=== PATIENT | female | born 1935 | race Caucasian/White ===

== ENCOUNTER 2017-07-26 16:20 | Inpatient (IN) | payer MEDICARE, MEDICAID ==
[~2017-07-26] VITALS: Ht 162.6 cm; Wt 68.0 kg
--- NOTE | 2017-07-26 16:22 | Emergency Room Report ---
History of Present Illness General Chief Complaint: Abdominal Pain Source: Patient Present Illness HPI [id number] BIBEMS for bright red blood, 50cc, from rectum at 4pm. Had constipation last 4 days then diarrhea this morning followed by bright red blood per rectum ( BRBPR) this afternoon. Assoc with lower midline abd pain and nausea Denies urinary complaints. No hemorrhoids. Not on ASA, AC. Finished Abx Cipro for UTI yesterday/today No prior colitis/diverticulitis history No coffee ground emesis. No melena. No heavy NSAID use Prolonged QTc on EMS rhythm strip Episode of "bradycardia" on scene Normotensive Allergies: Coded Allergies: Horse Serum Proteins (Verified Allergy, Unknown, SWELLING, 04/23/08) Patient History Past Medical History: HTN Past Surgical History: none Pertinent Family History: none Social History: Denies: smoking, alcohol use, drug use Now: No Immunizations: UTD Reviewed Nursing Documentation: PMH: Agreed, PSxH: Agreed Nursing Documentation-PMH Hx Hypertension: Yes Hx Diabetes: Yes Review of Systems All Other Systems: negative except mentioned in HPI Physical Exam Vital Signs Date Time Temp Pulse Resp B/P (MAP) Pulse Ox O2 Delivery O2 Flow Rate FiO2 07/26/17 16:11 96.3 55 16 145/72 99 Room Air Sp02 EP Interpretation: reviewed, normal General Appearance: normal inspection, well appearing, no apparent distress, alert, GCS 15, non-toxic, obese, other - Moving slowly, eyes closed Head: normocephalic, atraumatic Eyes: bilateral eye PERRL, bilateral eye EOMI ENT: normal ENT inspection Neck: normal inspection, full range of motion, supple, no bony tend Respiratory: normal inspection, lungs clear, normal breath sounds, no respiratory distress, no retraction, no wheezing Cardiovascular #1: regular rate, rhythm, no edema Gastrointestinal: normal inspection, soft, no mass, other - Mild ttp midline lower abd. No rebound, guarding. No peritonitis Rectal: normal exam, normal rectal tone, blood streaked stool, other - Brown stool with some red streaks on rectum Genitourinary: no CVA tenderness Musculoskeletal: normal inspection, back normal, normal range of motion, Azam' s Sign negative Neurologic: normal inspection, alert, oriented x3, responsive, mold clamper III-XII nml as tested, speech normal Psychiatric: normal inspection, judgement/insight normal, mood/affect normal Skin: normal inspection, normal color, no rash Medical Decision Making Diagnostic Impression: Primary Impression: Bright red blood per rectum Additional Impressions: Abdominal pain Qualified Codes: R10.30 - Lower abdominal pain, unspecified Colitis ER Course H&H stable. Leuks 21K No metabolic abnormalities - mild hyperglycemia CTAP: Colitis Empiric zosyn given with flagyl. Blood Cx pending Endorsed to Dr Decker for admission at 530pm Dr Montano consulted for GI EKG Diagnostic Results Rate: normal Rhythm: NSR ST Segments: no acute changes Rhythm Strip Diag. Results EP Interpretation: yes Rate: 55 Rhythm: NSR, no PVC's, no ectopy Last Vital Signs Date Time Temp Pulse Resp B/P (MAP) Pulse Ox O2 Delivery O2 Flow Rate FiO2 07/26/17 16:11 96.3 55 16 145/72 99 Room Air Status: improved Disposition: ADMITTED INPATIENT Condition: Serious KINJAL ISBELL M.D. Jul 26, 2017 16:22
[2017-07-26] MEDS ORDERED: ASPIR 8181 MG ORAL (16:30)
[2017-07-26] MEDS ORDERED: METFORMIN HCL500 M1 ORAL (16:30)
[2017-07-26] MEDS ORDERED: LEVOTHYROXINE50 MCG ORAL (16:30)
[2017-07-26] MEDS ORDERED: NIFEDIPINE ER60 M3 ORAL (16:30)
[2017-07-26] MEDS ORDERED: CARVEDILOL25 MG ORAL (16:30)
[2017-07-26] MEDS ORDERED: ATORVASTATIN CA20 MG ORAL (16:30)
[2017-07-26 16:54] VITALS: BP 160/56
[2017-07-26] MEDS ORDERED: Morphine Sulfate 4mg/ml Inj IVP ONE (17:00)
[2017-07-26 17:10] LABS: MEAN CORPUSCULAR HGB CONC 33.9 G/DL (32.0-36.0); MEAN CORPUSCULAR VOLUME 94 FL (80-99); MEAN PLATELET VOLUME 7.8 FL (6.5-10.1); PLATELET COUNT 268 K/UL (150-450); RED BLOOD COUNT 5.16 M/UL (4.20-5.40); RED CELL DISTRIBUTION WIDTH 12.4 % (11.6-14.8); WHITE BLOOD COUNT 21.7 K/UL (4.8-10.8)
[2017-07-26 17:16] LABS: PROTHROMBIN TIME 10.1 SEC (9.30-11.50)
[2017-07-26 17:25] LABS: TROPONIN I < 0.30 ng/mL (<=0.30)
[2017-07-26] MEDS ORDERED: Piperacillin/Tazobactam 3.375 GM in NS 110 ML IVPB ONE (17:30)
[2017-07-26 17:45] LABS: ALANINE AMINOTRANSFERASE 19 U/L (3-33); ALBUMIN/GLOBULIN RATIO 1.5 (1.0-2.7); ANION GAP 19 (5-15); ASPARTATE AMINO TRANSFERASE 22 U/L (5-40); CALCIUM 10.1 mg/dL (8.6-10.2); CARBON DIOXIDE 23 mEQ/L (20-30); CHLORIDE 95 mEQ/L (98-107); CREATININE 0.8 mg/dL (0.5-0.9); HEMOLYSIS 10; LIPASE 29 U/L (< 60); POTASSIUM 4.1 mEQ/L (3.4-4.9); SODIUM 137 mEQ/L (135-145); TOTAL PROTEIN 7.7 g/dL (6.6-8.7)
[2017-07-26] MEDS ORDERED: Miralax 17gm pkt ORAL PRN (17:45)
[2017-07-26] MEDS ORDERED: Mylanta II UD 30ml ORAL PRN (17:45)
[2017-07-26] MEDS ORDERED: Nitroglycerin Subl 0.4mg tab SL PRN (17:45)
[2017-07-26] MEDS ORDERED: Zosyn 3.375gm inj ONE (17:46)
--- NOTE | 2017-07-26 17:52 | Infectious Diseases Prog Note ---
Assessment/Plan Problems: (1) Sepsis Assessment & Plan: will send blood culture and start vancomycin and cefepime empirically (2) Bright red blood per rectum Assessment & Plan: monitor H/H, transfuse blood as needed , consult GI for endoscopy (3) Abdominal pain Assessment & Plan: due to the above, continue Pain management Subjective Allergies: Coded Allergies: Horse Serum Proteins (Verified Allergy, Unknown, SWELLING, 04/23/08) Objective Vital Signs Last 24 Hour Vital Signs Date Time Temp Pulse Resp B/P (MAP) Pulse Ox O2 Delivery O2 Flow Rate FiO2 07/26/17 16:54 97.9 55 16 160/56 100 Room Air 07/26/17 16:11 96.3 55 16 145/72 99 Room Air Height (Feet): 5 Height (Inches): 4.00 Weight (Pounds): 150 Laboratory Tests Test 07/26/17 16:40 White Blood Count 21.7 K/UL (4.8-10.8) H Red Blood Count 5.16 M/UL (4.20-5.40) Hemoglobin 16.5 G/DL (12.0-16.0) H Hematocrit 48.7 % (37.0-47.0) H Mean Corpuscular Volume 94 FL (80-99) Mean Corpuscular Hemoglobin 32.0 PG (27.0-31.0) H Mean Corpuscular Hemoglobin Concent 33.9 G/DL (32.0-36.0) Red Cell Distribution Width 12.4 % (11.6-14.8) Platelet Count 268 K/UL (150-450) Mean Platelet Volume 7.8 FL (6.5-10.1) Neutrophils (%) (Auto) % (45.0-75.0) Lymphocytes (%) (Auto) % (20.0-45.0) Monocytes (%) (Auto) % (1.0-10.0) Eosinophils (%) (Auto) % (0.0-3.0) Basophils (%) (Auto) % (0.0-2.0) Neutrophils % (Manual) Pending Lymphocytes % (Manual) Pending Platelet Estimate Pending Platelet Morphology Pending Prothrombin Time 10.1 SEC (9.30-11.50) Prothromb Time International Ratio 1.0 (0.9-1.1) Activated Partial Thromboplast Time 26 SEC (23-33) Sodium Level 137 mEQ/L (135-145) Potassium Level 4.1 mEQ/L (3.4-4.9) Chloride Level 95 mEQ/L (98-107) L Carbon Dioxide Level 23 mEQ/L (20-30) Anion Gap 19 (5-15) H Blood Urea Nitrogen 15 mg/dL (7-23) Creatinine 0.8 mg/dL (0.5-0.9) Estimat Glomerular Filtration Rate mL/min (>60) Glucose Level 146 mg/dL (74-106) H Calcium Level 10.1 mg/dL (8.6-10.2) Total Bilirubin 0.5 mg/dL (0.0-1.2) Aspartate Amino Transf (AST/SGOT) 22 U/L (5-40) Alanine Aminotransferase (ALT/SGPT) 19 U/L (3-33) Alkaline Phosphatase 62 U/L (35-104) Troponin I < 0.30 ng/mL (<=0.30) Total Protein 7.7 g/dL (6.6-8.7) Albumin 4.7 g/dL (3.5-5.2) Globulin 3.0 g/dL Albumin/Globulin Ratio 1.5 (1.0-2.7) Lipase 29 U/L (< 60) Current Medications Medications (Trade) Dose Ordered Sig/Akbar Route PRN Reason Start Time Stop Time Status Last Admin Dose Admin Acetaminophen (Tylenol) 650 mg Q4H PRN ORAL fever 07/26/17 17:45 08/25/17 17:44 Al Hydroxide/Mg Hydroxide (Mylanta II) 30 ml Q6H PRN ORAL dyspepsia 07/26/17 17:45 08/25/17 17:44 Atorvastatin Calcium (Lipitor) 20 mg BEDTIME ORAL 07/26/17 21:00 08/25/17 20:59 UNV Carvedilol (Coreg) 25 mg EVERY 12 HOURS ORAL 07/26/17 21:00 08/25/17 20:59 UNV Clonidine HCl (Catapres) 0.1 mg Q4H PRN ORAL For High Blood Pressure 07/26/17 17:45 08/25/17 17:44 Dextrose (Dextrose 50%) STAT PRN IV Hypoglycemia 07/26/17 17:45 08/25/17 17:44 Dextrose/Sodium Chloride 1,000 ml @ 75 mls/hr [id number] IV 07/26/17 18:00 08/25/17 17:59 Diphenhydramine HCl (Benadryl) 25 mg Q6H PRN ORAL Itching/Pruritis 07/26/17 17:45 08/25/17 17:44 Insulin Aspart (NovoLOG) BEFORE MEALS AND HS SUBQ 07/26/17 21:00 08/25/17 20:59 UNV Levothyroxine Sodium (Synthroid) 50 mcg ACBREAKFAST ORAL 07/27/17 06:30 08/26/17 06:29 Morphine Sulfate (Morphine Sulfate) 2 mg Q4H PRN IVP severe Pain (Pain Scale 7-10) 07/26/17 17:45 08/02/17 17:44 Nifedipine (Procardia XL) 60 mg DAILY ORAL 07/27/17 09:00 08/26/17 08:59 UNV Nitroglycerin (Ntg) 0.4 mg Q5M X 3 DOSES PRN SL Prn Chest Pain 07/26/17 17:45 08/25/17 17:44 Ondansetron HCl (Zofran) 4 mg Q6H PRN IVP Nausea & Vomiting 07/26/17 17:45 08/25/17 17:44 Piperacillin Sod/ Tazobactam Sod 3.375 gm/Sodium Chloride 110 ml @ 220 mls/hr ONCE ONCE IVPB 07/26/17 17:30 07/26/17 17:59 07/26/17 17:47 Polyethylene Glycol (Miralax) 17 gm HSPRN PRN ORAL Constipation 07/26/17 17:45 08/25/17 17:44 Temazepam (Restoril) 15 mg HSPRN PRN ORAL Insomnia 07/26/17 17:45 08/02/17 17:44 Boone Carlin M.D. Jul 26, 2017 17:52
[2017-07-26 18:13] LABS: BAND NEUTROPHILS % (MANUAL) 1 % (0-8); LYMPHOCYTES % (MANUAL) 7 % (20-45); NEUTROPHILS % (MANUAL) 90 % (45-75); TOTAL CELLS COUNTED 100
[2017-07-26 18:14] LABS: ANISOCYTOSIS 1+; BASOPHILS % (MANUAL) 0 % (0-2); EOSINOPHILS % (MANUAL) 0 % (0-3); PLATELET ESTIMATE ADEQUATE; PLATELET MORPHOLOGY NORMAL
[2017-07-26 18:30] VITALS: BP 134/52
[2017-07-26] MEDS ORDERED: HYDROmorphone 1mg/ml Carpuject IVP PRN (18:45)
[2017-07-26] MEDS ORDERED: Fleet's Enema 133ml RECTAL ONE (19:00)
[2017-07-26 19:07] LABS: MEAN CORPUSCULAR HEMOGLOBIN 32.6 PG (27.0-31.0); MEAN CORPUSCULAR HGB CONC 34.6 G/DL (32.0-36.0); MEAN CORPUSCULAR VOLUME 94 FL (80-99); MEAN PLATELET VOLUME 7.3 FL (6.5-10.1); PLATELET COUNT 266 K/UL (150-450); RED BLOOD COUNT 5.38 M/UL (4.20-5.40); RED CELL DISTRIBUTION WIDTH 12.3 % (11.6-14.8)
[2017-07-26 19:09] VITALS: BP 154/33
[2017-07-26 19:10] LABS: WHITE BLOOD COUNT 23.1 K/UL (4.8-10.8)
[2017-07-26 20:00] VITALS: BP 144/55
[2017-07-26 20:21] LABS: ANISOCYTOSIS 1+; BAND NEUTROPHILS % (MANUAL) 0 % (0-8); BASOPHILS % (MANUAL) 0 % (0-2); EOSINOPHILS % (MANUAL) 0 % (0-3); LYMPHOCYTES % (MANUAL) 5 % (20-45); NEUTROPHILS % (MANUAL) 92 % (45-75); PLATELET ESTIMATE ADEQUATE; PLATELET MORPHOLOGY NORMAL; TOTAL CELLS COUNTED 100
[2017-07-26] MEDS: D5 1/2NS 1,000 ML IV SCH (21:00)
[2017-07-26] MEDS: Morphine Sulfate 2mg/ml Inj IVP PRN (21:44)
[2017-07-26] MEDS: Cefepime HCl 2 GM in D5W 110 ML IVPB SCH (21:45)
[2017-07-26] MEDS: NovoLOG Insulin Flexpen SUBQ SCH (21:45)
[2017-07-26] MEDS: Carvedilol 25mg Tab ORAL SCH (21:45)
[2017-07-26] MEDS ORDERED: Vancomycin 1.5 GM/D5W 250ML IVPB ONE (22:00)
[2017-07-26 23:36] LABS: APPEARANCE,URINE CLEAR; KETONES,URINE 2+ (NEGATIVE); LEUKOCYTE ESTERASE ,URINE NEGATIVE (NEGATIVE); NITRITE,URINE NEGATIVE (NEGATIVE); PH,URINE 6 (4.5-8.0); PROTEIN,URINE NEGATIVE (NEGATIVE); UROBILINOGEN,URINE NORMAL MG/DL (0.0-1.0)
[2017-07-27] VITALS: BP 148/58
[2017-07-27 03:08] VITALS: BP 155/61
[2017-07-27 04:54] LABS: MEAN CORPUSCULAR HEMOGLOBIN 30.4 PG (27.0-31.0); MEAN CORPUSCULAR HGB CONC 32.7 G/DL (32.0-36.0); MEAN CORPUSCULAR VOLUME 93 FL (80-99); MEAN PLATELET VOLUME 7.4 FL (6.5-10.1); PLATELET COUNT 267 K/UL (150-450); RED BLOOD COUNT 5.17 M/UL (4.20-5.40); RED CELL DISTRIBUTION WIDTH 12.2 % (11.6-14.8)
[2017-07-27 05:02] LABS: PROTHROMBIN TIME 10.6 SEC (9.30-11.50)
[2017-07-27 05:16] LABS: ALANINE AMINOTRANSFERASE 14 U/L (3-33); ALBUMIN/GLOBULIN RATIO 1.4 (1.0-2.7); AMYLASE 39 U/L (10-110); ANION GAP 14 (5-15); ASPARTATE AMINO TRANSFERASE 18 U/L (5-40); CALCIUM 8.5 mg/dL (8.6-10.2); CARBON DIOXIDE 24 mEQ/L (20-30); CHLORIDE 97 mEQ/L (98-107); CREATININE 0.7 mg/dL (0.5-0.9); HEMOLYSIS 5; LIPASE 43 U/L (< 60); POTASSIUM 3.5 mEQ/L (3.4-4.9); SODIUM 135 mEQ/L (135-145); TOTAL PROTEIN 6.8 g/dL (6.6-8.7)
[2017-07-27] MEDS: NovoLOG Insulin Flexpen SUBQ SCH ×4 (06:21→21:31)
[2017-07-27 08:11] VITALS: BP 153/66
[2017-07-27] MEDS: Carvedilol 25mg Tab ORAL SCH ×2 (08:31→20:18)
[2017-07-27] MEDS: Morphine Sulfate 2mg/ml Inj IVP PRN ×2 (08:32→20:18)
[2017-07-27] MEDS: Cefepime HCl 2 GM in D5W 110 ML IVPB SCH (08:32)
[2017-07-27 08:50] LABS: BAND NEUTROPHILS % (MANUAL) 0 % (0-8); BASOPHILS % (MANUAL) 0 % (0-2); EOSINOPHILS % (MANUAL) 0 % (0-3); LYMPHOCYTES % (MANUAL) 5 % (20-45); NEUTROPHILS % (MANUAL) 92 % (45-75); PLATELET ESTIMATE ADEQUATE; PLATELET MORPHOLOGY NORMAL; TOTAL CELLS COUNTED 100
--- NOTE | 2017-07-27 09:02 | Consultation ---
History of Present Illness General Date patient seen: Jul 27, 2017 Time patient seen: 08:00 Chief Complaint: Abdominal Pain Referring physician: dr Decker Reason for Consultation: inpatient management Present Illness HPI 81 y/old female with PMH of HTN, DM, hypothyroidism, presented to ED with c/o BRBPR Patient reported constipation for the last 4 days, then diarrhea in the morning 07/26 followed by bright red blood per rectum (BRBPR) in the afternoon . Also reported lower abdominal pain and nausea Denied urinary complaints. Denied hemorrhoids. Not on ASA or anticoagulation therapy just completed abx for UTI No prior colitis/diverticulitis history denied coffee ground emesis or black stools No heavy NSAID use Workup in ED revealed stable VS, no fever CT A/P revealed wall thickening of the distal transverse and descending colon consistent with nonspecific colitis. leukocytosis- 21.7 HH stable anion gap-19 glucose- 146 LFT, lipase, lytes, renal parameters all stable ECG with NSR UA negative patient was given empiric abx and was admitted for further management Allergies: Coded Allergies: Horse Serum Proteins (Verified Allergy, Unknown, SWELLING, 04/23/08) Medication History Scheduled Aspirin* (Aspir 81*), 81 MG ORAL DAILY, (Reported) Atorvastatin Calcium* (Atorvastatin Calcium*), 20 MG ORAL BEDTIME, (Reported) Carvedilol* (Carvedilol*), 25 MG ORAL EVERY 12 HOURS, (Reported) Levothyroxine Sodium* (Levothyroxine Sodium*), 50 MCG ORAL DAILY, (Reported) Metformin Hcl* (Metformin Hcl*), 500 MG ORAL TWICE A DAY, (Reported) Nifedipine Er* (Nifedipine Er*), 60 MG ORAL DAILY, (Reported) Patient History Healthcare decision maker Resuscitation status Full Code Advanced Directive on File No Past Medical/Surgical History Past Medical/Surgical History: (1) Hypothyroidism (2) Diabetes (3) Hypertension Physical Exam General Appearance: WD/WN, no apparent distress, alert - A/A/O x 4 Lines, tubes and drains: peripheral HEENT: normocephalic, atraumatic, anicteric, PERRL Neck: non-tender, supple Respiratory/Chest: lungs clear, no respiratory distress, no accessory muscle use Cardiovascular/Chest: normal peripheral pulses, normal rate, regular rhythm - SR on tele , no JVD Abdomen: normal bowel sounds - TTP lower quadrants, but no rebound, no guarding , soft Extremities: normal range of motion, non-tender, no calf tenderness, normal capillary refill Neurologic: no motor/sensory deficits, alert, oriented x 3, responsive Musculoskeletal: normal muscle bulk Last 24 Hour Vital Signs Date Time Temp Pulse Resp B/P (MAP) Pulse Ox O2 Delivery O2 Flow Rate FiO2 07/27/17 08:31 63 153/66 07/27/17 08:31 63 153/66 07/27/17 08:11 98.1 61 18 153/66 94 Room Air 07/27/17 04:00 65 07/27/17 03:08 98.2 71 18 155/61 94 Room Air 07/27/17 00:00 97.2 67 18 148/58 93 Room Air 07/27/17 00:00 65 07/26/17 22:14 97.2 07/26/17 21:45 58 144/55 07/26/17 20:00 97.0 58 18 144/55 95 Room Air 07/26/17 19:11 97.9 55 16 154/56 100 Room Air 07/26/17 19:09 97.2 58 16 154/33 98 Room Air 07/26/17 18:30 54 16 134/52 98 Room Air 07/26/17 17:33 97.9 07/26/17 16:54 97.9 55 16 160/56 100 Room Air 07/26/17 16:11 96.3 55 16 145/72 99 Room Air Intake and Output 07/27/17 07/28/17 19:00 07:00 # Voids 1 Laboratory Tests Test 07/26/17 16:40 07/26/17 18:39 07/26/17 22:00 07/27/17 04:40 White Blood Count 21.7 K/UL (4.8-10.8) H 23.1 K/UL (4.8-10.8) *H 26.0 K/UL (4.8-10.8) *H Red Blood Count 5.16 M/UL (4.20-5.40) 5.38 M/UL (4.20-5.40) 5.17 M/UL (4.20-5.40) Hemoglobin 16.5 G/DL (12.0-16.0) H 17.5 G/DL (12.0-16.0) H 15.7 G/DL (12.0-16.0) Hematocrit 48.7 % (37.0-47.0) H 50.6 % (37.0-47.0) H 48.2 % (37.0-47.0) H Mean Corpuscular Volume 94 FL (80-99) 94 FL (80-99) 93 FL (80-99) Mean Corpuscular Hemoglobin 32.0 PG (27.0-31.0) H 32.6 PG (27.0-31.0) H 30.4 PG (27.0-31.0) Mean Corpuscular Hemoglobin Concent 33.9 G/DL (32.0-36.0) 34.6 G/DL (32.0-36.0) 32.7 G/DL (32.0-36.0) Red Cell Distribution Width 12.4 % (11.6-14.8) 12.3 % (11.6-14.8) 12.2 % (11.6-14.8) Platelet Count 268 K/UL (150-450) 266 K/UL (150-450) 267 K/UL (150-450) Mean Platelet Volume 7.8 FL (6.5-10.1) 7.3 FL (6.5-10.1) 7.4 FL (6.5-10.1) Neutrophils (%) (Auto) % (45.0-75.0) % (45.0-75.0) % (45.0-75.0) Lymphocytes (%) (Auto) % (20.0-45.0) % (20.0-45.0) % (20.0-45.0) Monocytes (%) (Auto) % (1.0-10.0) % (1.0-10.0) % (1.0-10.0) Eosinophils (%) (Auto) % (0.0-3.0) % (0.0-3.0) % (0.0-3.0) Basophils (%) (Auto) % (0.0-2.0) % (0.0-2.0) % (0.0-2.0) Differential Total Cells Counted 100 100 100 Neutrophils % (Manual) 90 % (45-75) H 92 % (45-75) H 92 % (45-75) H Lymphocytes % (Manual) 7 % (20-45) L 5 % (20-45) L 5 % (20-45) L Monocytes % (Manual) 2 % (1-10) 3 % (1-10) 3 % (1-10) Eosinophils % (Manual) 0 % (0-3) 0 % (0-3) 0 % (0-3) Basophils % (Manual) 0 % (0-2) 0 % (0-2) 0 % (0-2) Band Neutrophils 1 % (0-8) 0 % (0-8) 0 % (0-8) Platelet Estimate Adequate Adequate Adequate Platelet Morphology Normal Normal Normal Anisocytosis 1+ 1+ Prothrombin Time 10.1 SEC (9.30-11.50) 10.6 SEC (9.30-11.50) Prothromb Time International Ratio 1.0 (0.9-1.1) 1.0 (0.9-1.1) Activated Partial Thromboplast Time 26 SEC (23-33) 27 SEC (23-33) Sodium Level 137 mEQ/L (135-145) 135 mEQ/L (135-145) Potassium Level 4.1 mEQ/L (3.4-4.9) 3.5 mEQ/L (3.4-4.9) Chloride Level 95 mEQ/L (98-107) L 97 mEQ/L (98-107) L Carbon Dioxide Level 23 mEQ/L (20-30) 24 mEQ/L (20-30) Anion Gap 19 (5-15) H 14 (5-15) Blood Urea Nitrogen 15 mg/dL (7-23) 12 mg/dL (7-23) Creatinine 0.8 mg/dL (0.5-0.9) 0.7 mg/dL (0.5-0.9) Estimat Glomerular Filtration Rate mL/min (>60) mL/min (>60) Glucose Level 146 mg/dL (74-106) H 197 mg/dL (74-106) H Calcium Level 10.1 mg/dL (8.6-10.2) 8.5 mg/dL (8.6-10.2) L Total Bilirubin 0.5 mg/dL (0.0-1.2) 0.5 mg/dL (0.0-1.2) Aspartate Amino Transf (AST/SGOT) 22 U/L (5-40) 18 U/L (5-40) Alanine Aminotransferase (ALT/SGPT) 19 U/L (3-33) 14 U/L (3-33) Alkaline Phosphatase 62 U/L (35-104) 50 U/L (35-104) Troponin I < 0.30 ng/mL (<=0.30) Total Protein 7.7 g/dL (6.6-8.7) 6.8 g/dL (6.6-8.7) Albumin 4.7 g/dL (3.5-5.2) 4.0 g/dL (3.5-5.2) Globulin 3.0 g/dL 2.8 g/dL Albumin/Globulin Ratio 1.5 (1.0-2.7) 1.4 (1.0-2.7) Lipase 29 U/L (< 60) 43 U/L (< 60) Urine Color Pale yellow Urine Appearance Clear Urine pH 6 (4.5-8.0) Urine Specific [place] 1.010 (1.005-1.035) Urine Protein Negative (NEGATIVE) Urine Glucose (UA) Negative (NEGATIVE) Urine Ketones 2+ (NEGATIVE) H Urine Occult Blood Negative (NEGATIVE) Urine Nitrite Negative (NEGATIVE) Urine Bilirubin Negative (NEGATIVE) Urine Urobilinogen Normal MG/DL (0.0-1.0) Urine Leukocyte Esterase Negative (NEGATIVE) Tear Drop Cells Hemoglobin A1c 6.2 % (< 6.0) H Amylase Level 39 U/L (10-110) Thyroid Stimulating Hormone (TSH) 1.170 uIU/mL (0.300-4.500) Height (Feet): 5 Height (Inches): 4.00 Weight (Pounds): 150 Medications Current Medications Medications (Trade) Dose Ordered Sig/Akbar Route PRN Reason Start Time Stop Time Status Last Admin Dose Admin Acetaminophen (Tylenol) 650 mg Q4H PRN ORAL fever 07/26/17 17:45 08/25/17 17:44 Al Hydroxide/Mg Hydroxide (Mylanta II) 30 ml Q6H PRN ORAL dyspepsia 07/26/17 17:45 08/25/17 17:44 Atorvastatin Calcium (Lipitor) 20 mg BEDTIME ORAL 07/26/17 21:00 08/25/17 20:59 07/26/17 21:44 Carvedilol (Coreg) 25 mg EVERY 12 HOURS ORAL 07/26/17 21:00 08/25/17 20:59 07/27/17 08:31 Cefepime HCl 2 gm/ Dextrose 110 ml @ 220 mls/hr EVERY 12 HOURS IVPB 07/26/17 21:00 08/02/17 20:59 07/27/17 08:32 Clonidine HCl (Catapres) 0.1 mg Q4H PRN ORAL For High Blood Pressure 07/26/17 17:45 08/25/17 17:44 Dextrose (Dextrose 50%) STAT PRN IV Hypoglycemia 07/26/17 17:45 08/25/17 17:44 Dextrose/Sodium Chloride 1,000 ml @ 75 mls/hr [id number] IV 07/26/17 18:00 08/25/17 17:59 07/26/17 21:00 Diphenhydramine HCl (Benadryl) 25 mg Q6H PRN ORAL Itching/Pruritis 07/26/17 17:45 08/25/17 17:44 Hydromorphone HCl (Dilaudid) 0.5 mg STAT PRN IVP For Pain 07/26/17 18:45 08/02/17 18:44 Insulin Aspart (NovoLOG) BEFORE MEALS AND HS SUBQ 07/26/17 21:00 08/25/17 20:59 Levothyroxine Sodium (Synthroid) 50 mcg ACBREAKFAST ORAL 07/27/17 06:30 08/26/17 06:29 07/27/17 05:59 Morphine Sulfate (Morphine Sulfate) 2 mg Q4H PRN IVP severe Pain (Pain Scale 7-10) 07/26/17 17:45 08/02/17 17:44 07/27/17 08:32 Nifedipine (Procardia XL) 60 mg DAILY ORAL 07/27/17 09:00 08/26/17 08:59 07/27/17 08:31 Nitroglycerin (Ntg) 0.4 mg Q5M X 3 DOSES PRN SL Prn Chest Pain 07/26/17 17:45 08/25/17 17:44 Ondansetron HCl (Zofran) 4 mg Q6H PRN IVP Nausea & Vomiting 07/26/17 17:45 08/25/17 17:44 07/27/17 06:44 Polyethylene Glycol (Miralax) 17 gm HSPRN PRN ORAL Constipation 07/26/17 17:45 08/25/17 17:44 Temazepam (Restoril) 15 mg HSPRN PRN ORAL Insomnia 07/26/17 17:45 08/02/17 17:44 Vancomycin HCl (Vanco rx to dose) 1 ea DAILY PRN MISC Per rx protocol 07/26/17 18:00 08/25/17 17:59 Vancomycin HCl/ Dextrose 250 ml @ 166.667 mls/hr Q24H IVPB 07/27/17 12:00 08/01/17 11:59 Assessment/Plan Assessment/Plan ASSESSMENT possible sepsis rectal bleeding colitis abdominal pain HTN DM hypothyroidism CAD, hx of CABG PLAN OF CARE tele NPO IVF GI consult pain management a/emetic prn PPI empiric abx, ID follows monitor HH clsoely, at this time stable BP management with BB and CCB, optimize as needed BS management with SS of insulin, HgA1c at goal Venous Duplex BLE check TSH -WNL, continue current dose of levothyroxine case discussed and evaluated by supervising physician Saray Nevarez NP ([facility]) Jul 27, 2017 09:01
--- NOTE | 2017-07-27 09:57 | Diagnostic Imaging Report ---
Indication: Abdominal pain Technique: CT of the abdomen and pelvis utilizing automated exposure control with intravenous contrast. Venous scanning performed. CT dose: Total DLP 876 mGycm; CTDI vol 18.2 mGy Comparison: 04/23/08 Findings: There is mild atelectasis in the lung bases. A small hiatal hernia is present. The liver, adrenal glands, spleen and pancreas are unremarkable. No CT evident gallstones are seen. There is a small cyst in the right kidney. Atherosclerotic changes are noted. The small bowel loops are normal in caliber. The appendix is normal. There is wall thickening with pericolonic stranding of the distal transverse and the descending colon. Colonic diverticula are also seen without diverticulitis. There is no free intraperitoneal fluid or air. No pneumatosis is identified. Uterine calcifications measuring up to 3.6 cm are suggestive of fibroid. Bladder is grossly unremarkable. Degenerative changes of the spine are present. Impression: Wall thickening of the distal transverse and descending colon consistent with nonspecific colitis. Infectious, inflammatory and ischemic etiologies are considered. No pneumatosis or free intraperitoneal air. Clinical correlation recommended. Colonic diverticulosis without diverticulitis. Normal appendix. Atherosclerotic changes. Calcified uterine masses suggestive of fibroids. The CT scanner at [facility] is accredited by the [employer] and the scans are performed using protocols designed to limit radiation exposure to as low as reasonably achievable to attain images of sufficient resolution adequate for diagnostic evaluation.
[2017-07-27 11:49] VITALS: BP 130/57
[2017-07-27] MEDS ORDERED: Nulytely 4L ORAL ONE (12:00)
[2017-07-27] MEDS: Pantoprazole Inj IVP SCH (12:23)
[2017-07-27] MEDS: Vancomycin 1250mg/D5W 250ml IVPB SCH (12:23)
[2017-07-27] MEDS: D5 1/2NS 1,000 ML IV SCH ×2 (12:23→20:40)
--- NOTE | 2017-07-27 14:40 | General Surgery Progress Note ---
General Surgery-Progress Note Subjective Reason for Consult abdominal pain, bloody diarrhea, possible ischemic colon. Chief Complaint: 2 days of abdominal pain, bloody BMs x 2 with bright red blood per rectum, Additional Comments CAT scan shows thickened distal transverse colon and proximal descending colon, likely ischemic colitis. No free air or bowel distention., no fever or chills Objective Last 24 Hour Vital Signs Date Time Temp Pulse Resp B/P (MAP) Pulse Ox O2 Delivery O2 Flow Rate FiO2 07/27/17 11:49 97.7 54 18 130/57 95 Room Air 07/27/17 09:02 97.7 07/27/17 08:31 63 153/66 07/27/17 08:31 63 153/66 07/27/17 08:11 98.1 61 18 153/66 94 Room Air 07/27/17 04:00 65 07/27/17 03:08 98.2 71 18 155/61 94 Room Air 07/27/17 00:00 97.2 67 18 148/58 93 Room Air 07/27/17 00:00 65 07/26/17 21:45 58 144/55 07/26/17 20:00 97.0 58 18 144/55 95 Room Air 07/26/17 19:11 97.9 55 16 154/56 100 Room Air 07/26/17 19:09 97.2 58 16 154/33 98 Room Air 07/26/17 18:30 54 16 134/52 98 Room Air 07/26/17 17:33 97.9 07/26/17 16:54 97.9 55 16 160/56 100 Room Air 07/26/17 16:11 96.3 55 16 145/72 99 Room Air I&O Intake and Output 07/27/17 07/28/17 19:00 07:00 # Voids 1 Cardiovascular: RSR Respiratory: clear Abdomen: soft, distended - 1+, tenderness - 2-3+ ldft upper quadrant. No mass palpable Extremities: no edema Laboratory Tests Test 07/26/17 16:40 07/26/17 18:39 07/26/17 22:00 07/27/17 04:40 White Blood Count 21.7 K/UL (4.8-10.8) H 23.1 K/UL (4.8-10.8) *H 26.0 K/UL (4.8-10.8) *H Red Blood Count 5.16 M/UL (4.20-5.40) 5.38 M/UL (4.20-5.40) 5.17 M/UL (4.20-5.40) Hemoglobin 16.5 G/DL (12.0-16.0) H 17.5 G/DL (12.0-16.0) H 15.7 G/DL (12.0-16.0) Hematocrit 48.7 % (37.0-47.0) H 50.6 % (37.0-47.0) H 48.2 % (37.0-47.0) H Mean Corpuscular Volume 94 FL (80-99) 94 FL (80-99) 93 FL (80-99) Mean Corpuscular Hemoglobin 32.0 PG (27.0-31.0) H 32.6 PG (27.0-31.0) H 30.4 PG (27.0-31.0) Mean Corpuscular Hemoglobin Concent 33.9 G/DL (32.0-36.0) 34.6 G/DL (32.0-36.0) 32.7 G/DL (32.0-36.0) Red Cell Distribution Width 12.4 % (11.6-14.8) 12.3 % (11.6-14.8) 12.2 % (11.6-14.8) Platelet Count 268 K/UL (150-450) 266 K/UL (150-450) 267 K/UL (150-450) Mean Platelet Volume 7.8 FL (6.5-10.1) 7.3 FL (6.5-10.1) 7.4 FL (6.5-10.1) Neutrophils (%) (Auto) % (45.0-75.0) % (45.0-75.0) % (45.0-75.0) Lymphocytes (%) (Auto) % (20.0-45.0) % (20.0-45.0) % (20.0-45.0) Monocytes (%) (Auto) % (1.0-10.0) % (1.0-10.0) % (1.0-10.0) Eosinophils (%) (Auto) % (0.0-3.0) % (0.0-3.0) % (0.0-3.0) Basophils (%) (Auto) % (0.0-2.0) % (0.0-2.0) % (0.0-2.0) Differential Total Cells Counted 100 100 100 Neutrophils % (Manual) 90 % (45-75) H 92 % (45-75) H 92 % (45-75) H Lymphocytes % (Manual) 7 % (20-45) L 5 % (20-45) L 5 % (20-45) L Monocytes % (Manual) 2 % (1-10) 3 % (1-10) 3 % (1-10) Eosinophils % (Manual) 0 % (0-3) 0 % (0-3) 0 % (0-3) Basophils % (Manual) 0 % (0-2) 0 % (0-2) 0 % (0-2) Band Neutrophils 1 % (0-8) 0 % (0-8) 0 % (0-8) Platelet Estimate Adequate Adequate Adequate Platelet Morphology Normal Normal Normal Anisocytosis 1+ 1+ Prothrombin Time 10.1 SEC (9.30-11.50) 10.6 SEC (9.30-11.50) Prothromb Time International Ratio 1.0 (0.9-1.1) 1.0 (0.9-1.1) Activated Partial Thromboplast Time 26 SEC (23-33) 27 SEC (23-33) Sodium Level 137 mEQ/L (135-145) 135 mEQ/L (135-145) Potassium Level 4.1 mEQ/L (3.4-4.9) 3.5 mEQ/L (3.4-4.9) Chloride Level 95 mEQ/L (98-107) L 97 mEQ/L (98-107) L Carbon Dioxide Level 23 mEQ/L (20-30) 24 mEQ/L (20-30) Anion Gap 19 (5-15) H 14 (5-15) Blood Urea Nitrogen 15 mg/dL (7-23) 12 mg/dL (7-23) Creatinine 0.8 mg/dL (0.5-0.9) 0.7 mg/dL (0.5-0.9) Estimat Glomerular Filtration Rate mL/min (>60) mL/min (>60) Glucose Level 146 mg/dL (74-106) H 197 mg/dL (74-106) H Calcium Level 10.1 mg/dL (8.6-10.2) 8.5 mg/dL (8.6-10.2) L Total Bilirubin 0.5 mg/dL (0.0-1.2) 0.5 mg/dL (0.0-1.2) Aspartate Amino Transf (AST/SGOT) 22 U/L (5-40) 18 U/L (5-40) Alanine Aminotransferase (ALT/SGPT) 19 U/L (3-33) 14 U/L (3-33) Alkaline Phosphatase 62 U/L (35-104) 50 U/L (35-104) Troponin I < 0.30 ng/mL (<=0.30) Total Protein 7.7 g/dL (6.6-8.7) 6.8 g/dL (6.6-8.7) Albumin 4.7 g/dL (3.5-5.2) 4.0 g/dL (3.5-5.2) Globulin 3.0 g/dL 2.8 g/dL Albumin/Globulin Ratio 1.5 (1.0-2.7) 1.4 (1.0-2.7) Lipase 29 U/L (< 60) 43 U/L (< 60) Urine Color Pale yellow Urine Appearance Clear Urine pH 6 (4.5-8.0) Urine Specific [place] 1.010 (1.005-1.035) Urine Protein Negative (NEGATIVE) Urine Glucose (UA) Negative (NEGATIVE) Urine Ketones 2+ (NEGATIVE) H Urine Occult Blood Negative (NEGATIVE) Urine Nitrite Negative (NEGATIVE) Urine Bilirubin Negative (NEGATIVE) Urine Urobilinogen Normal MG/DL (0.0-1.0) Urine Leukocyte Esterase Negative (NEGATIVE) Tear Drop Cells Hemoglobin A1c 6.2 % (< 6.0) H Amylase Level 39 U/L (10-110) Thyroid Stimulating Hormone (TSH) 1.170 uIU/mL (0.300-4.500) Additional Comments Left transverse colon and splenic flexure-descending colon wall thickening with possible ischemic colitis. S/P CABG x 2 vessel disease. HTN Assessment Additional Comments Pt on IV antibiotics, will check CBC in am, plan on bowel prep over 2 days and colonoscopy Mon am if all OK. Surgery if no improvement or deterioration. ADEN BURTON Jul 27, 2017 14:40
[2017-07-27 16:00] VITALS: BP 130/47
[2017-07-27] MEDS: Piperacillin/Tazobactam 3.375 GM in D5W 110 ML IVPB SCH ×2 (16:15→23:36)
[2017-07-27] MEDS ORDERED: NS 275ml ONE (16:38)
[2017-07-27] MEDS ORDERED: Tubing IV Secondary IV ONE (16:38)
[2017-07-27] MEDS ORDERED: D5 1/2NS 1000ml IV ONE (16:38)
--- NOTE | 2017-07-27 17:18 | Infectious Diseases Prog Note ---
Assessment/Plan Problems: (1) Sepsis Assessment & Plan: not improving with current regimen will switch cefepime to zosyn and continue vancomycin pending blood culture result (2) Bright red blood per rectum Assessment & Plan: suspect ischemic colitis , will send stool for C diff , monitor H/H, transfuse blood as needed , general surgery is following , may need endoscopy (3) Abdominal pain Assessment & Plan: due to the above, continue Pain management (4) Colitis Assessment & Plan: suspect ischemic, continue conservative management , further recommendations as per surgery Subjective Constitutional: Reports: no symptoms HEENT: Reports: no symptoms Respiratory: Reports: no symptoms Breasts: Reports: no symptoms Cardiovascular: Reports: no symptoms Gastrointestinal/Abdominal: Reports: diarrhea, blood in stool, bloating, other - pain Genitourinary: Reports: no symptoms Neurologic: Reports: no symptoms Psychiatric: Reports: no symptoms Skin: Reports: no symptoms Endocrine: Reports: no symptoms Allergies: Coded Allergies: Horse Serum Proteins (Verified Allergy, Unknown, SWELLING, 04/23/08) Objective Vital Signs Last 24 Hour Vital Signs Date Time Temp Pulse Resp B/P (MAP) Pulse Ox O2 Delivery O2 Flow Rate FiO2 07/27/17 16:00 97.7 54 18 130/47 95 Room Air 07/27/17 16:00 55 07/27/17 12:00 54 07/27/17 11:49 97.7 54 18 130/57 95 Room Air 07/27/17 09:02 97.7 07/27/17 08:31 63 153/66 07/27/17 08:31 63 153/66 07/27/17 08:11 98.1 61 18 153/66 94 Room Air 07/27/17 08:00 72 07/27/17 04:00 65 07/27/17 03:08 98.2 71 18 155/61 94 Room Air 07/27/17 00:00 97.2 67 18 148/58 93 Room Air 07/27/17 00:00 65 07/26/17 21:45 58 144/55 07/26/17 20:00 97.0 58 18 144/55 95 Room Air 07/26/17 19:11 97.9 55 16 154/56 100 Room Air 07/26/17 19:09 97.2 58 16 154/33 98 Room Air 07/26/17 18:30 54 16 134/52 98 Room Air 07/26/17 17:33 97.9 Height (Feet): 5 Height (Inches): 4.00 Weight (Pounds): 150 General Appearance: WD/WN, no acute distress HEENT: normocephalic, atraumatic, anicteric, mucous membranes moist Respiratory/Chest: chest wall non-tender, lungs clear, normal breath sounds, no respiratory distress, no accessory muscle use Cardiovascular: normal peripheral pulses, normal rate, regular rhythm, no gallop/murmur Abdomen: no organomegaly, no mass, no scars, hyperactive bowel sounds, distended, guarding Extremities: no cyanosis, no clubbing Skin: no rash, no lesions Laboratory Tests Test 07/26/17 18:39 07/26/17 22:00 07/27/17 04:40 White Blood Count 23.1 K/UL (4.8-10.8) *H 26.0 K/UL (4.8-10.8) *H Red Blood Count 5.38 M/UL (4.20-5.40) 5.17 M/UL (4.20-5.40) Hemoglobin 17.5 G/DL (12.0-16.0) H 15.7 G/DL (12.0-16.0) Hematocrit 50.6 % (37.0-47.0) H 48.2 % (37.0-47.0) H Mean Corpuscular Volume 94 FL (80-99) 93 FL (80-99) Mean Corpuscular Hemoglobin 32.6 PG (27.0-31.0) H 30.4 PG (27.0-31.0) Mean Corpuscular Hemoglobin Concent 34.6 G/DL (32.0-36.0) 32.7 G/DL (32.0-36.0) Red Cell Distribution Width 12.3 % (11.6-14.8) 12.2 % (11.6-14.8) Platelet Count 266 K/UL (150-450) 267 K/UL (150-450) Mean Platelet Volume 7.3 FL (6.5-10.1) 7.4 FL (6.5-10.1) Neutrophils (%) (Auto) % (45.0-75.0) % (45.0-75.0) Lymphocytes (%) (Auto) % (20.0-45.0) % (20.0-45.0) Monocytes (%) (Auto) % (1.0-10.0) % (1.0-10.0) Eosinophils (%) (Auto) % (0.0-3.0) % (0.0-3.0) Basophils (%) (Auto) % (0.0-2.0) % (0.0-2.0) Differential Total Cells Counted 100 100 Neutrophils % (Manual) 92 % (45-75) H 92 % (45-75) H Lymphocytes % (Manual) 5 % (20-45) L 5 % (20-45) L Monocytes % (Manual) 3 % (1-10) 3 % (1-10) Eosinophils % (Manual) 0 % (0-3) 0 % (0-3) Basophils % (Manual) 0 % (0-2) 0 % (0-2) Band Neutrophils 0 % (0-8) 0 % (0-8) Platelet Estimate Adequate Adequate Platelet Morphology Normal Normal Anisocytosis 1+ Urine Color Pale yellow Urine Appearance Clear Urine pH 6 (4.5-8.0) Urine Specific [place] 1.010 (1.005-1.035) Urine Protein Negative (NEGATIVE) Urine Glucose (UA) Negative (NEGATIVE) Urine Ketones 2+ (NEGATIVE) H Urine Occult Blood Negative (NEGATIVE) Urine Nitrite Negative (NEGATIVE) Urine Bilirubin Negative (NEGATIVE) Urine Urobilinogen Normal MG/DL (0.0-1.0) Urine Leukocyte Esterase Negative (NEGATIVE) Tear Drop Cells Prothrombin Time 10.6 SEC (9.30-11.50) Prothromb Time International Ratio 1.0 (0.9-1.1) Activated Partial Thromboplast Time 27 SEC (23-33) Sodium Level 135 mEQ/L (135-145) Potassium Level 3.5 mEQ/L (3.4-4.9) Chloride Level 97 mEQ/L (98-107) L Carbon Dioxide Level 24 mEQ/L (20-30) Anion Gap 14 (5-15) Blood Urea Nitrogen 12 mg/dL (7-23) Creatinine 0.7 mg/dL (0.5-0.9) Estimat Glomerular Filtration Rate mL/min (>60) Glucose Level 197 mg/dL (74-106) H Hemoglobin A1c 6.2 % (< 6.0) H Calcium Level 8.5 mg/dL (8.6-10.2) L Total Bilirubin 0.5 mg/dL (0.0-1.2) Aspartate Amino Transf (AST/SGOT) 18 U/L (5-40) Alanine Aminotransferase (ALT/SGPT) 14 U/L (3-33) Alkaline Phosphatase 50 U/L (35-104) Total Protein 6.8 g/dL (6.6-8.7) Albumin 4.0 g/dL (3.5-5.2) Globulin 2.8 g/dL Albumin/Globulin Ratio 1.4 (1.0-2.7) Amylase Level 39 U/L (10-110) Lipase 43 U/L (< 60) Thyroid Stimulating Hormone (TSH) 1.170 uIU/mL (0.300-4.500) Current Medications Medications (Trade) Dose Ordered Sig/Akbar Route PRN Reason Start Time Stop Time Status Last Admin Dose Admin Acetaminophen (Tylenol) 650 mg Q4H PRN ORAL fever 07/26/17 17:45 08/25/17 17:44 Al Hydroxide/Mg Hydroxide (Mylanta II) 30 ml Q6H PRN ORAL dyspepsia 07/26/17 17:45 08/25/17 17:44 Atorvastatin Calcium (Lipitor) 20 mg BEDTIME ORAL 07/26/17 21:00 08/25/17 20:59 07/26/17 21:44 Carvedilol (Coreg) 25 mg EVERY 12 HOURS ORAL 07/26/17 21:00 08/25/17 20:59 07/27/17 08:31 Clonidine HCl (Catapres) 0.1 mg Q4H PRN ORAL For High Blood Pressure 07/26/17 17:45 08/25/17 17:44 Dextrose (Dextrose 50%) STAT PRN IV Hypoglycemia 07/26/17 17:45 08/25/17 17:44 Dextrose/Sodium Chloride 1,000 ml @ 75 mls/hr [id number] IV 07/26/17 18:00 08/25/17 17:59 07/27/17 12:23 Diphenhydramine HCl (Benadryl) 25 mg Q6H PRN ORAL Itching/Pruritis 07/26/17 17:45 08/25/17 17:44 Hydromorphone HCl (Dilaudid) 0.5 mg STAT PRN IVP For Pain 07/26/17 18:45 08/02/17 18:44 Insulin Aspart (NovoLOG) BEFORE MEALS AND HS SUBQ 07/26/17 21:00 08/25/17 20:59 Levothyroxine Sodium (Synthroid) 50 mcg ACBREAKFAST ORAL 07/27/17 06:30 08/26/17 06:29 07/27/17 05:59 Morphine Sulfate (Morphine Sulfate) 2 mg Q4H PRN IVP severe Pain (Pain Scale 7-10) 07/26/17 17:45 08/02/17 17:44 07/27/17 08:32 Nifedipine (Procardia XL) 60 mg DAILY ORAL 07/27/17 09:00 08/26/17 08:59 07/27/17 08:31 Nitroglycerin (Ntg) 0.4 mg Q5M X 3 DOSES PRN SL Prn Chest Pain 07/26/17 17:45 08/25/17 17:44 Ondansetron HCl (Zofran) 4 mg Q6H PRN IVP Nausea & Vomiting 07/26/17 17:45 08/25/17 17:44 07/27/17 06:44 Pantoprazole (Protonix) 40 mg DAILY IVP 07/27/17 10:00 08/26/17 09:59 07/27/17 12:23 Piperacillin Sod/ Tazobactam Sod 3.375 gm/Dextrose 110 ml @ 27.5 mls/hr Q8H IVPB 07/27/17 16:00 08/03/17 15:59 07/27/17 16:15 Polyethylene Glycol (Miralax) 17 gm HSPRN PRN ORAL Constipation 07/26/17 17:45 08/25/17 17:44 Temazepam (Restoril) 15 mg HSPRN PRN ORAL Insomnia 07/26/17 17:45 08/02/17 17:44 Vancomycin HCl (Vanco rx to dose) 1 ea DAILY PRN MISC Per rx protocol 07/26/17 18:00 08/25/17 17:59 Vancomycin HCl/ Dextrose 250 ml @ 166.667 mls/hr Q24H IVPB 07/27/17 12:00 08/01/17 11:59 07/27/17 12:23 Boone Carlin M.D. Jul 27, 2017 17:18
[2017-07-27 20:14] VITALS: BP 144/60
--- NOTE | 2017-07-27 22:42 | General Progress Note ---
Assessment/Plan Assessment/Plan Assessment - acute abd pain - altered bowel habits - rectal bleeding - segmental colitis, suspect ischemic - ASCVD Recommendations - NPO - GI tract lavage - surgical f/u - possible partial colonoscopy, for Dx and Planning - but will hold off until clinical course more clear Subjective Allergies: Coded Allergies: Horse Serum Proteins (Verified Allergy, Unknown, SWELLING, 04/23/08) Objective Last 24 Hour Vital Signs Date Time Temp Pulse Resp B/P (MAP) Pulse Ox O2 Delivery O2 Flow Rate FiO2 07/27/17 20:48 98.2 07/27/17 20:18 61 144/60 07/27/17 20:14 98.2 61 18 144/60 96 Room Air 07/27/17 16:00 97.7 54 18 130/47 95 Room Air 07/27/17 16:00 55 07/27/17 12:00 54 07/27/17 11:49 97.7 54 18 130/57 95 Room Air 07/27/17 08:31 63 153/66 07/27/17 08:31 63 153/66 07/27/17 08:11 98.1 61 18 153/66 94 Room Air 07/27/17 08:00 72 07/27/17 04:00 65 07/27/17 03:08 98.2 71 18 155/61 94 Room Air 07/27/17 00:00 97.2 67 18 148/58 93 Room Air 07/27/17 00:00 65 Intake and Output 07/27/17 07/28/17 19:00 07:00 Intake Total 1640.000 ml Balance 1640.000 ml Intake Oral 300 ml IV Total 1340.000 ml # Voids 3 Laboratory Tests 07/27/17 04:40: White Blood Count 26.0*H, Red Blood Count 5.17, Hemoglobin 15.7, Hematocrit 48.2H, Mean Corpuscular Volume 93, Mean Corpuscular Hemoglobin 30.4, Mean Corpuscular Hemoglobin Concent 32.7, Red Cell Distribution Width 12.2, Platelet Count 267, Mean Platelet Volume 7.4, Neutrophils (%) (Auto) , Lymphocytes (%) ( Auto) , Monocytes (%) (Auto) , Eosinophils (%) (Auto) , Basophils (%) (Auto) , Differential Total Cells Counted 100, Neutrophils % (Manual) 92H, Lymphocytes % (Manual) 5L, Monocytes % (Manual) 3, Eosinophils % (Manual) 0, Basophils % ( Manual) 0, Band Neutrophils 0, Platelet Estimate Adequate, Platelet Morphology Normal, Tear Drop Cells , Prothrombin Time 10.6, Prothromb Time International Ratio 1.0, Activated Partial Thromboplast Time 27, Sodium Level 135, Potassium Level 3.5, Chloride Level 97L, Carbon Dioxide Level 24, Anion Gap 14, Blood Urea Nitrogen 12, Creatinine 0.7, Estimat Glomerular Filtration Rate , Glucose Level 197H, Hemoglobin A1c 6.2H, Calcium Level 8.5L, Total Bilirubin 0.5, Aspartate Amino Transf (AST/SGOT) 18, Alanine Aminotransferase (ALT/SGPT) 14, Alkaline Phosphatase 50, Total Protein 6.8, Albumin 4.0, Globulin 2.8, Albumin/ Globulin Ratio 1.4, Amylase Level 39, Lipase 43, Thyroid Stimulating Hormone ( TSH) 1.170 Height (Feet): 5 Height (Inches): 4.00 Weight (Pounds): 150 STACEY SMYTH Jul 27, 2017 22:42
--- NOTE | 2017-07-27 23:45 | Consultation ---
DATE OF CONSULTATION: INFECTIOUS DISEASE CONSULTATION CONSULTING PHYSICIAN: Boone Carlin M.D. REQUESTING PHYSICIAN: Vernon Decker D.O. Reason for Consultation: Sepsis and colitis, recommendation for antibiotics therapy. History Of Present Illness: The patient is an 81-year-old female with past medical history of hypertension and diabetes presented to [facility] with severe left-sided abdominal pain and bloody diarrhea for the last couple of days. The patient was initially constipated then she developed diarrhea with bloody stool. She also had significant abdominal pain mainly on the left side with tenderness and distention. She never had any previous gastrointestinal problem, never scoped in the past, and did not notice any significant weight loss or change in her appetite. The patient was recently treated for urinary tract infection and finished her course of antibiotics yesterday. She denied any previous history of colitis or diverticulitis. Denied any recent NSAID use. In the emergency room, she had a CT scan of the abdomen and pelvis that showed significant colitis on the distal transverse and descending colon. Her white count was found to be elevated suggesting sepsis, so I was consulted by the primary provider for antibiotics treatment and further management. PAST MEDICAL HISTORY: Significant for diabetes and hypertension. PAST SURGICAL HISTORY: Negative. Medications: The patient received Zosyn in the emergency room. For the rest of her medications, please refer to MAR. ALLERGIES: She is allergic to horse serum protein. Social History: The patient lives at home with family. Denied using any drugs, tobacco, or alcohol. FAMILY HISTORY: Not contributory. REVIEW OF SYSTEMS: A 14-point of system reviewed were all negative. PHYSICAL EXAMINATION: Vital Signs: Temperature 97.7 degrees, pulse 54, respirations 18, blood pressure 130/47, and saturation 95% on room air. General: An elderly female, up in bed, awake, alert, oriented, not in distress, and complaining of abdominal pain. HEENT: Normocephalic and atraumatic. Pupils are reactive to light. Moist oral mucosa. NECK: Supple. No lymphadenopathy. CARDIOVASCULAR: Regular rate and rhythm. No murmur. LUNGS: Clear bilaterally. No wheezing or rhonchi. Abdomen: Soft. Tender on the left side with rebound. No organomegaly. No ascites. Hyperactive bowel sounds. EXTREMITIES: No edema or cyanosis. Laboratory Data: Labs showed white count of 23.1, hemoglobin of 17.5, and platelet count of 266,000. BUN of 15 and creatinine of 0.8. AST of 22 and ALT of 19. Urinalysis, negative for nitrite and negative for leukocyte esterase. Imaging: CT scan of abdomen and pelvis showed wall thickening of the distal transverse and descending colon consistent with colitis, colonic diverticulosis without diverticulitis. ASSESSMENT AND RECOMMENDATIONS: 1. Sepsis. We will send blood culture and start vancomycin and cefepime empiric treatment. 2. Acute colitis with bloody diarrhea, suspect ischemic colitis. We will cover the patient with antibiotics for now. Monitor hemoglobin and hematocrit. Transfuse blood as needed. Consult Surgery and Gastrointestinal for colonoscopy for further evaluation. 3. Abdominal pain due to the above. Continue pain management as per primary team. Boone Carlin M.D. DR: CARLOS A JOB#: [id number] CC:
[2017-07-28 00:10] VITALS: BP 137/55
--- NOTE | 2017-07-28 00:15 | Consultation ---
DATE OF CONSULTATION: 07/27/2017 GASTROENTEROLOGY CONSULTATION Chief Complaint: I was asked to see this patient by Dr. Vernon Decker for evaluation of abdominal pain and hematochezia. History of Present Illness: The patient is a pleasant 81-year-old white woman with a history of atherosclerotic cardiovascular disease, who comes into the hospital with one to two days of hematochezia. She also has one day of lower abdominal pain. She said the bleeding was painless and also about five days prior to admission, she noted lack of bowel movement. In the more distant past, she has noticed over the past four or five months that she has had pebble-like stools, which are new. She has had upper GI pyrosis for many years, for which she takes Tums on a frequent basis. About seven days prior to admission, she had five-day course of Cipro for urinary tract infection, which she stopped two days prior to admission. She has not had any nausea or vomiting. She was admitted to the hospital where a CT scan in the emergency room revealed splenic flexure area colitis. The patient has had a coronary artery bypass graft procedure for cardiac disease and she has risk factors for atherosclerotic cardiovascular disease including hypercholesterolemia, hypertension, and diabetes. Past Medical History: History of hypertension, history of gastroesophageal reflux, history of [id number]-qeybdrrhy diabetes mellitus, history of coronary artery disease, status post two-vessel coronary artery bypass graft procedure in 2009, hypothyroidism, and hypercholesterolemia. Medications: Coreg, metformin, levothyroxine, aspirin, metoprolol, Tums, nifedipine, and Lipitor. Social History: The patient is a . She has two children. She stopped smoking in the . FAMILY HISTORY: Noncontributory. REVIEW OF SYSTEMS: Otherwise negative. PHYSICAL EXAMINATION: GENERAL: This is a pleasant white woman seen in her room. HEENT: Normocephalic and atraumatic. Sclerae anicteric. Oropharynx clear. NECK: Supple. CHEST: Clear to auscultation. CARDIOVASCULAR: Revealed a regular rate. Abdomen: Soft with bilateral lower quadrant tenderness to palpation without rebound or guarding. EXTREMITIES: Revealed no edema. NEUROLOGIC: Nonfocal. LABORATORY DATA: CT scan was noted. Assessment: This patient presents with lower abdominal pain and a CT scan, which is consistent with findings of ulcerative colitis. The distribution of colitis in lieu of the patient's known atherosclerotic cardiovascular disease is highly suspicious for ischemia. The ischemia could cause some bleeding as seen as well as sudden pain. More importantly is her peripheral leukocytosis, which appears to be climbing. She is still in pain requiring morphine and therefore the ischemia could be significant. I will get a surgical consultation for this patient to observe and follow. Should her symptoms worsen or white count elevates further then she may need surgical intervention, however if she gets better then she may be okay with conservative management. In that case, she would undergo a colonoscopy for diagnostic and prognostic purposes. RECOMMENDATIONS: 1. Keep the patient n.p.o. 2. Broad-spectrum antibiotics. 3. Begin GI tract preparation, which could be used either for surgery preparation or also colonoscopy preparation. 4. Surgical consultation for close followup. Thank you for asking me to participate in the care of this patient. Onelia Ryder M.D. DR: JORGE JOB#: [id number] CC:
[2017-07-28] MEDS: Morphine Sulfate 2mg/ml Inj IVP PRN ×3 (00:51→11:23)
--- NOTE | 2017-07-28 01:30 | History and Physical Report ---
DATE OF ADMISSION: 07/26/2017 TIME: At 3 p.m. CONSULTANTS: 1. Ferdinand Montano M.D. 2. Dr. Judge. 3. Ashley Glass M.D. 4. Michael Amin M.D. CHIEF COMPLAINT: Rectal bleed, ischemic colitis. Brief History: This 81-year-old female from home presents with one episode of large amount of bloody red stools, slight nausea and vomiting. No complaint otherwise. The patient came to [facility], diagnosed with rectal bleed and further was diagnosed with possible ischemic colitis and admitted to telemetry for further care. Currently, slight general pain, slightly weak in bed. No other complaints. PAST MEDICAL HISTORY: Diabetes. PAST SURGICAL HISTORY: Bypass, thyroidectomy. Medications: Zosyn, vancomycin, Protonix, Procardia, Synthroid, Lipitor, Coreg, NovoLog, Dilaudid, and Tylenol. ALLERGIES: Horse serum protein. SOCIAL HISTORY: No smoking. No alcohol. No intravenous drug use. FAMILY HISTORY: Noncontributory. Review of Systems: No chest pain. Slight short of breath. Slight nausea and vomiting, slight bloody diarrhea. PHYSICAL EXAMINATION: GENERAL: Calm, in bed, oriented x3. No acute distress. Vital Signs: Temperature 97 degrees, pulse 54, respirations 18, and blood pressure 130/57. CARDIOVASCULAR: No murmurs. LUNGS: Clear. Abdomen: Bowel sounds are positive. Slightly tender. No guarding. No rigidity. No rebound. EXTREMITIES: No cyanosis, clubbing, or edema. NEUROLOGICAL: The patient moves all extremities, slightly weak. Laboratory And Diagnostic Data: White count 26, hemoglobin and hematocrit 15 and 48, and platelets 267,000. BMP show chloride 97, glucose 197, otherwise normal. INR is 1.0 and PTT is 27. Urinalysis, 2+ ketones. ASSESSMENT: 1. Rectal bleed, possible ischemic colitis. 2. Diabetes. 3. Hypothyroidism. Plan: Continue pre-medications. OT/PT. Dietary evaluation. CBC and BMP in the morning. Antibiotics per Infectious Diseases. Pending colonoscopy. Spoke with the patient regarding treatment plan. Surgery and GI on the case. Dr. Montano, Dr. Judge, Dr. Glass, and Dr. Amin to follow. We will continue to follow the patient. Vernon Decker D.O. DR: YOANDY JOB#: [id number] CC:
[2017-07-28 04:25] VITALS: BP 137/59
[2017-07-28] MEDS: D5 1/2NS 1,000 ML IV SCH ×3 (05:43→16:13)
[2017-07-28] MEDS: NovoLOG Insulin Flexpen SUBQ SCH ×4 (06:19→21:00)
[2017-07-28 06:57] LABS: ALANINE AMINOTRANSFERASE 10 U/L (3-33); ALBUMIN/GLOBULIN RATIO 1.2 (1.0-2.7); ANION GAP 12 (5-15); ASPARTATE AMINO TRANSFERASE 14 U/L (5-40); CALCIUM 8.4 mg/dL (8.6-10.2); CARBON DIOXIDE 27 mEQ/L (20-30); CHLORIDE 96 mEQ/L (98-107); CREATININE 0.8 mg/dL (0.5-0.9); HEMOLYSIS 1; POTASSIUM 3.9 mEQ/L (3.4-4.9); SODIUM 135 mEQ/L (135-145); TOTAL PROTEIN 6.1 g/dL (6.6-8.7)
[2017-07-28 06:59] LABS: MEAN CORPUSCULAR HEMOGLOBIN 31.7 PG (27.0-31.0); MEAN CORPUSCULAR HGB CONC 33.6 G/DL (32.0-36.0); MEAN CORPUSCULAR VOLUME 94 FL (80-99); MEAN PLATELET VOLUME 7.8 FL (6.5-10.1); PLATELET COUNT 212 K/UL (150-450); RED BLOOD COUNT 4.72 M/UL (4.20-5.40); RED CELL DISTRIBUTION WIDTH 12.1 % (11.6-14.8)
[2017-07-28 07:21] LABS: WHITE BLOOD COUNT 27.8 K/UL (4.8-10.8)
[2017-07-28 08:28] VITALS: BP 110/51
[2017-07-28 08:38] LABS: BAND NEUTROPHILS % (MANUAL) 0 % (0-8); BASOPHILS % (MANUAL) 0 % (0-2); EOSINOPHILS % (MANUAL) 0 % (0-3); LYMPHOCYTES % (MANUAL) 2 % (20-45); NEUTROPHILS % (MANUAL) 90 % (45-75); PLATELET ESTIMATE ADEQUATE; PLATELET MORPHOLOGY NORMAL; TOTAL CELLS COUNTED 100
--- NOTE | 2017-07-28 08:47 | Pulmonology Progress Note ---
Assessment/Plan Assessment/Plan ASSESSMENT possible sepsis rectal bleeding colitis possible ischemic colitis abdominal pain HTN DM hypothyroidism CAD, hx of CABG PLAN OF CARE tele NPO IVF GI and surgery follow bowel prep in preparation for colonoscopy on Saturday possible surgical interventions if no implement pain management a/emetic prn PPI empiric abx, ID follows monitor HH closely, BP management with BB and CCB, optimize as needed BS management with SS of insulin, HgA1c at goal Venous Duplex BLE TSH -WNL, continue current dose of levothyroxine case discussed and evaluated by supervising physician Subjective Allergies: Coded Allergies: Horse Serum Proteins (Verified Allergy, Unknown, SWELLING, 04/23/08) Subjective leucocytosis trending up, afebrile on abx still with intermittent lower abdominal pain and intermittent rectal bleeding HH dropped 2 points from initial, still WNL seen by GI, surgeon and ID Objective Last 24 Hour Vital Signs Date Time Temp Pulse Resp B/P (MAP) Pulse Ox O2 Delivery O2 Flow Rate FiO2 07/28/17 08:28 97.5 62 18 110/51 93 Room Air 07/28/17 08:00 65 07/28/17 06:13 98.6 07/28/17 04:25 98.6 67 18 137/59 96 Room Air 07/28/17 04:00 61 07/28/17 00:10 98.1 62 18 137/55 98 Room Air 07/28/17 00:00 62 07/27/17 20:18 61 144/60 07/27/17 20:14 98.2 61 18 144/60 96 Room Air 07/27/17 20:00 54 07/27/17 16:00 97.7 54 18 130/47 95 Room Air 07/27/17 16:00 55 07/27/17 12:00 54 07/27/17 11:49 97.7 54 18 130/57 95 Room Air Intake and Output 07/28/17 07/29/17 19:00 07:00 Output Total 50 ml Balance -50 ml Output Urine Total 50 ml # Bowel Movements 1 Objective General Appearance: WD/WN, no apparent distress, alert - A/A/O x 4 Lines, tubes and drains: peripheral HEENT: normocephalic, atraumatic, anicteric, PERRL Neck: non-tender, supple Respiratory/Chest: lungs clear, no respiratory distress, no accessory muscle use Cardiovascular/Chest: normal peripheral pulses, normal rate, regular rhythm - SR on tele , no JVD Abdomen: normal bowel sounds, TTP lower quadrants, but no rebound, no guarding , soft Extremities: normal range of motion, non-tender, no calf tenderness, normal capillary refill Neurologic: no motor/sensory deficits, alert, oriented x 3, responsive Musculoskeletal: normal muscle bulk Microbiology Date/Time Source Procedure Growth Status 07/26/17 17:46 Blood Blood Culture - Preliminary NO GROWTH AFTER 24 HOURS Resulted 07/26/17 17:35 Blood Blood Culture - Preliminary NO GROWTH AFTER 24 HOURS Resulted Laboratory Tests 07/28/17 05:50: White Blood Count 27.8*H, Red Blood Count 4.72, Hemoglobin 14.9, Hematocrit 44.4 , Mean Corpuscular Volume 94, Mean Corpuscular Hemoglobin 31.7H, Mean Corpuscular Hemoglobin Concent 33.6, Red Cell Distribution Width 12.1, Platelet Count 212, Mean Platelet Volume 7.8, Neutrophils (%) (Auto) , Lymphocytes (%) ( Auto) , Monocytes (%) (Auto) , Eosinophils (%) (Auto) , Basophils (%) (Auto) , Differential Total Cells Counted 100, Neutrophils % (Manual) 90H, Lymphocytes % (Manual) 2L, Monocytes % (Manual) 8, Eosinophils % (Manual) 0, Basophils % ( Manual) 0, Band Neutrophils 0, Platelet Estimate Adequate, Platelet Morphology Normal, Red Blood Cell Morphology Normal, Sodium Level 135, Potassium Level 3.9 , Chloride Level 96L, Carbon Dioxide Level 27, Anion Gap 12, Blood Urea Nitrogen 9, Creatinine 0.8, Estimat Glomerular Filtration Rate , Glucose Level 162H, Lactic Acid Level 1.70, Calcium Level 8.4L, Total Bilirubin 0.5, Aspartate Amino Transf (AST/SGOT) 14, Alanine Aminotransferase (ALT/SGPT) 10, Alkaline Phosphatase 79, Total Protein 6.1L, Albumin 3.4L, Globulin 2.7, Albumin /Globulin Ratio 1.2 Current Medications Medications (Trade) Dose Ordered Sig/Akbar Route PRN Reason Start Time Stop Time Status Last Admin Dose Admin Acetaminophen (Tylenol) 650 mg Q4H PRN ORAL fever 07/26/17 17:45 08/25/17 17:44 Al Hydroxide/Mg Hydroxide (Mylanta II) 30 ml Q6H PRN ORAL dyspepsia 07/26/17 17:45 08/25/17 17:44 Atorvastatin Calcium (Lipitor) 20 mg BEDTIME ORAL 07/26/17 21:00 08/25/17 20:59 07/27/17 20:18 Carvedilol (Coreg) 25 mg EVERY 12 HOURS ORAL 07/26/17 21:00 08/25/17 20:59 07/27/17 20:18 Clonidine HCl (Catapres) 0.1 mg Q4H PRN ORAL For High Blood Pressure 07/26/17 17:45 08/25/17 17:44 Dextrose (Dextrose 50%) STAT PRN IV Hypoglycemia 07/26/17 17:45 08/25/17 17:44 Dextrose/Sodium Chloride 1,000 ml @ 75 mls/hr [id number] IV 07/26/17 18:00 08/25/17 17:59 07/28/17 05:43 Diphenhydramine HCl (Benadryl) 25 mg Q6H PRN ORAL Itching/Pruritis 07/26/17 17:45 08/25/17 17:44 Hydromorphone HCl (Dilaudid) 0.5 mg STAT PRN IVP For Pain 07/26/17 18:45 08/02/17 18:44 Insulin Aspart (NovoLOG) BEFORE MEALS AND HS SUBQ 07/26/17 21:00 08/25/17 20:59 Levothyroxine Sodium (Synthroid) 50 mcg ACBREAKFAST ORAL 07/27/17 06:30 08/26/17 06:29 07/28/17 05:43 Morphine Sulfate (Morphine Sulfate) 2 mg Q4H PRN IVP severe Pain (Pain Scale 7-10) 07/26/17 17:45 08/02/17 17:44 07/28/17 05:43 Nifedipine (Procardia XL) 60 mg DAILY ORAL 07/27/17 09:00 08/26/17 08:59 07/27/17 08:31 Nitroglycerin (Ntg) 0.4 mg Q5M X 3 DOSES PRN SL Prn Chest Pain 07/26/17 17:45 08/25/17 17:44 Ondansetron HCl (Zofran) 4 mg Q6H PRN IVP Nausea & Vomiting 07/26/17 17:45 08/25/17 17:44 07/27/17 20:17 Pantoprazole (Protonix) 40 mg DAILY IVP 07/27/17 10:00 08/26/17 09:59 07/27/17 12:23 Piperacillin Sod/ Tazobactam Sod 3.375 gm/Dextrose 110 ml @ 27.5 mls/hr Q8H IVPB 07/27/17 16:00 08/03/17 15:59 07/27/17 23:36 Polyethylene Glycol (Miralax) 17 gm HSPRN PRN ORAL Constipation 07/26/17 17:45 08/25/17 17:44 Temazepam (Restoril) 15 mg HSPRN PRN ORAL Insomnia 07/26/17 17:45 08/02/17 17:44 Vancomycin HCl (Vanco rx to dose) 1 ea DAILY PRN MISC Per rx protocol 07/26/17 18:00 08/25/17 17:59 Vancomycin HCl/ Dextrose 250 ml @ 166.667 mls/hr Q24H IVPB 07/27/17 12:00 08/01/17 11:59 07/27/17 12:23 Roque (Leena)Saray NP Jul 28, 2017 08:47
--- NOTE | 2017-07-28 09:00 | General Progress Note ---
Assessment/Plan Assessment/Plan Assessment - acute abd pain - altered bowel habits - rectal bleeding - segmental colitis, suspect ischemic - ASCVD - rising WBC concerning Recommendations - NPO - GI tract lavage - surgical f/u - colonoscopy tomorrow am (possibly partial exam only), for Dx and Planning - patient made clearly aware of higher risk of colonic perforation with colonoscopy in setting of ischemic/gangrenous colitis. Understands would need emergency surgery in case of perforation Subjective Allergies: Coded Allergies: Horse Serum Proteins (Verified Allergy, Unknown, SWELLING, 04/23/08) Subjective Feels OK still with abd pain took 1/3 of golytely (+) brown BM - bleeding cleared Objective Last 24 Hour Vital Signs Date Time Temp Pulse Resp B/P (MAP) Pulse Ox O2 Delivery O2 Flow Rate FiO2 07/28/17 08:28 97.5 62 18 110/51 93 Room Air 07/28/17 08:00 65 07/28/17 06:13 98.6 07/28/17 04:25 98.6 67 18 137/59 96 Room Air 07/28/17 04:00 61 07/28/17 00:10 98.1 62 18 137/55 98 Room Air 07/28/17 00:00 62 07/27/17 20:18 61 144/60 07/27/17 20:14 98.2 61 18 144/60 96 Room Air 07/27/17 20:00 54 07/27/17 16:00 97.7 54 18 130/47 95 Room Air 07/27/17 16:00 55 07/27/17 12:00 54 07/27/17 11:49 97.7 54 18 130/57 95 Room Air Intake and Output 07/28/17 07/29/17 19:00 07:00 Output Total 50 ml Balance -50 ml Output Urine Total 50 ml # Bowel Movements 1 Laboratory Tests 07/28/17 05:50: White Blood Count 27.8*H, Red Blood Count 4.72, Hemoglobin 14.9, Hematocrit 44.4 , Mean Corpuscular Volume 94, Mean Corpuscular Hemoglobin 31.7H, Mean Corpuscular Hemoglobin Concent 33.6, Red Cell Distribution Width 12.1, Platelet Count 212, Mean Platelet Volume 7.8, Neutrophils (%) (Auto) , Lymphocytes (%) ( Auto) , Monocytes (%) (Auto) , Eosinophils (%) (Auto) , Basophils (%) (Auto) , Differential Total Cells Counted 100, Neutrophils % (Manual) 90H, Lymphocytes % (Manual) 2L, Monocytes % (Manual) 8, Eosinophils % (Manual) 0, Basophils % ( Manual) 0, Band Neutrophils 0, Platelet Estimate Adequate, Platelet Morphology Normal, Red Blood Cell Morphology Normal, Sodium Level 135, Potassium Level 3.9 , Chloride Level 96L, Carbon Dioxide Level 27, Anion Gap 12, Blood Urea Nitrogen 9, Creatinine 0.8, Estimat Glomerular Filtration Rate , Glucose Level 162H, Lactic Acid Level 1.70, Calcium Level 8.4L, Total Bilirubin 0.5, Aspartate Amino Transf (AST/SGOT) 14, Alanine Aminotransferase (ALT/SGPT) 10, Alkaline Phosphatase 79, Total Protein 6.1L, Albumin 3.4L, Globulin 2.7, Albumin /Globulin Ratio 1.2 Height (Feet): 5 Height (Inches): 4.00 Weight (Pounds): 150 Objective WDWN NCAT supple CTA RRR Soft abd, (+) LUQ TTP no edema nonfocal STACEY SMYTH Jul 28, 2017 09:00
--- NOTE | 2017-07-28 09:09 | General Progress Note ---
Assessment/Plan Problem List: (1) Sepsis ICD Codes: A41.9 - Sepsis, unspecified organism SNOMED: 68999853 (2) Colitis ICD Codes: K52.9 - Noninfective gastroenteritis and colitis, unspecified SNOMED: 47774227 (3) Bright red blood per rectum ICD Codes: K62.5 - Hemorrhage of anus and rectum SNOMED: 995907798 (4) Abdominal pain ICD Codes: R10.9 - Unspecified abdominal pain SNOMED: 69911814 Qualifiers: Qualified Codes: R10.30 - Lower abdominal pain, unspecified (5) Diabetes ICD Codes: E11.9 - Type 2 diabetes mellitus without complications SNOMED: 48920729 (6) Hypothyroidism ICD Codes: E03.9 - Hypothyroidism, unspecified SNOMED: 80405238 (7) Hypertension ICD Codes: I10 - Essential (primary) hypertension SNOMED: 52523780 Status: progressing, tolerating diet Assessment/Plan ot pt diet abx pending colonoscopy cbc bmp am, Subjective Constitutional: Reports: weakness Allergies: Coded Allergies: Horse Serum Proteins (Verified Allergy, Unknown, SWELLING, 04/23/08) All Systems: reviewed and negative except above Subjective calm in bed sl weak Objective Last 24 Hour Vital Signs Date Time Temp Pulse Resp B/P (MAP) Pulse Ox O2 Delivery O2 Flow Rate FiO2 07/28/17 08:28 97.5 62 18 110/51 93 Room Air 07/28/17 08:00 65 07/28/17 06:13 98.6 07/28/17 04:25 98.6 67 18 137/59 96 Room Air 07/28/17 04:00 61 07/28/17 00:10 98.1 62 18 137/55 98 Room Air 07/28/17 00:00 62 07/27/17 20:18 61 144/60 07/27/17 20:14 98.2 61 18 144/60 96 Room Air 07/27/17 20:00 54 07/27/17 16:00 97.7 54 18 130/47 95 Room Air 07/27/17 16:00 55 07/27/17 12:00 54 07/27/17 11:49 97.7 54 18 130/57 95 Room Air Intake and Output 07/28/17 07/29/17 19:00 07:00 Output Total 50 ml Balance -50 ml Output Urine Total 50 ml # Bowel Movements 1 Laboratory Tests 07/28/17 05:50: White Blood Count 27.8*H, Red Blood Count 4.72, Hemoglobin 14.9, Hematocrit 44.4 , Mean Corpuscular Volume 94, Mean Corpuscular Hemoglobin 31.7H, Mean Corpuscular Hemoglobin Concent 33.6, Red Cell Distribution Width 12.1, Platelet Count 212, Mean Platelet Volume 7.8, Neutrophils (%) (Auto) , Lymphocytes (%) ( Auto) , Monocytes (%) (Auto) , Eosinophils (%) (Auto) , Basophils (%) (Auto) , Differential Total Cells Counted 100, Neutrophils % (Manual) 90H, Lymphocytes % (Manual) 2L, Monocytes % (Manual) 8, Eosinophils % (Manual) 0, Basophils % ( Manual) 0, Band Neutrophils 0, Platelet Estimate Adequate, Platelet Morphology Normal, Red Blood Cell Morphology Normal, Sodium Level 135, Potassium Level 3.9 , Chloride Level 96L, Carbon Dioxide Level 27, Anion Gap 12, Blood Urea Nitrogen 9, Creatinine 0.8, Estimat Glomerular Filtration Rate , Glucose Level 162H, Lactic Acid Level 1.70, Calcium Level 8.4L, Total Bilirubin 0.5, Aspartate Amino Transf (AST/SGOT) 14, Alanine Aminotransferase (ALT/SGPT) 10, Alkaline Phosphatase 79, Total Protein 6.1L, Albumin 3.4L, Globulin 2.7, Albumin /Globulin Ratio 1.2 Height (Feet): 5 Height (Inches): 4.00 Weight (Pounds): 150 General Appearance: alert EENT: normal ENT inspection Neck: normal alignment Cardiovascular: normal peripheral pulses, normal rate, regular rhythm Respiratory/Chest: chest wall non-tender, lungs clear, normal breath sounds Abdomen: normal bowel sounds, non tender, soft Extremities: normal inspection Edema: no edema noted Arm (L), no edema noted Arm (R), no edema noted Leg (L), no edema noted Leg (R), no edema noted Pedal (L), no edema noted Pedal (R), no edema noted Generalized Neurologic: responsive, motor weakness Skin: normal pigmentation, warm/dry INDIRA SALGUERO Jul 28, 2017 09:09
[2017-07-28] MEDS: Carvedilol 25mg Tab ORAL SCH ×2 (09:15→21:00)
[2017-07-28] MEDS: Pantoprazole Inj IVP SCH (09:16)
[2017-07-28] MEDS: Piperacillin/Tazobactam 3.375 GM in D5W 110 ML IVPB SCH ×2 (09:16→16:13)
--- NOTE | 2017-07-28 09:28 | Diagnostic Imaging Report ---
Indication: Shortness of breath Technique: XRAY CHEST 1 V Comparison: 08/14/09 Findings: There is poor inspiration with bronchovascular crowding. Mild interstitial prominence is noted. Cardiac silhouette is prominent. Sternotomy wires are seen. Atherosclerotic changes are present. Degenerative changes of the spine are noted. Clips project over the upper chest. Impression: Poor inspiration with bronchovascular crowding. Mild interstitial edema may be present. Clinical correlation/followup recommended.
[2017-07-28] MEDS: Vancomycin 1250mg/D5W 250ml IVPB SCH (11:15)
[2017-07-28 12:05] VITALS: BP 120/46
--- NOTE | 2017-07-28 12:12 | General Progress Note ---
Progress Note Progress Note Afebrile, feels better, less pain and distention, small loose BMs with old blood , no further bright red blood in stool. Tolerating liquids, bowel prep in progress. Abdomen: soft, much less tenderness in left upper quadrant. No mass or guarding. WBC 27.6. Impression: left colitis in splenic flexure area. Clinically better except for leukocystosis. Colonoscopy in am. ADEN BURTON Jul 28, 2017 12:12
--- NOTE | 2017-07-28 14:52 | Infectious Diseases Prog Note ---
Assessment/Plan Problems: (1) Sepsis Assessment & Plan: source suspect GI tract , on zosyn and vancomycin pending blood culture result (2) Bright red blood per rectum Assessment & Plan: suspect ischemic colitis , await stool for C diff , monitor H/H, transfuse blood as needed , general surgery is following , may need endoscopy (3) Abdominal pain Assessment & Plan: due to the above, continue Pain management (4) Colitis Assessment & Plan: suspect ischemic, continue conservative management , further recommendations as per surgery Subjective Constitutional: Reports: no symptoms HEENT: Reports: no symptoms Respiratory: Reports: no symptoms Breasts: Reports: no symptoms Cardiovascular: Reports: no symptoms Gastrointestinal/Abdominal: Reports: diarrhea, bloating Genitourinary: Reports: no symptoms Neurologic: Reports: no symptoms Psychiatric: Reports: no symptoms Skin: Reports: no symptoms Endocrine: Reports: no symptoms Allergies: Coded Allergies: Horse Serum Proteins (Verified Allergy, Unknown, SWELLING, 04/23/08) Objective Vital Signs Last 24 Hour Vital Signs Date Time Temp Pulse Resp B/P (MAP) Pulse Ox O2 Delivery O2 Flow Rate FiO2 07/28/17 12:05 96.8 57 18 120/46 93 Room Air 07/28/17 12:00 69 07/28/17 09:16 65 110/51 07/28/17 09:15 65 110/51 07/28/17 08:28 97.5 62 18 110/51 93 Room Air 07/28/17 08:00 65 07/28/17 06:13 98.6 07/28/17 04:25 98.6 67 18 137/59 96 Room Air 07/28/17 04:00 61 07/28/17 00:10 98.1 62 18 137/55 98 Room Air 07/28/17 00:00 62 07/27/17 20:18 61 144/60 07/27/17 20:14 98.2 61 18 144/60 96 Room Air 07/27/17 20:00 54 07/27/17 16:00 97.7 54 18 130/47 95 Room Air 07/27/17 16:00 55 Height (Feet): 5 Height (Inches): 4.00 Weight (Pounds): 150 General Appearance: WD/WN, no acute distress HEENT: normocephalic, atraumatic, anicteric, mucous membranes moist, PERRL Respiratory/Chest: chest wall non-tender, lungs clear, normal breath sounds, no respiratory distress Cardiovascular: normal peripheral pulses, normal rate, regular rhythm, no gallop/murmur, no JVD Abdomen: no mass, no scars, absent bowel sounds, distended, tender Extremities: no cyanosis, no clubbing Skin: no rash, no lesions Microbiology Date/Time Source Procedure Growth Status 07/26/17 17:46 Blood Blood Culture - Preliminary NO GROWTH AFTER 24 HOURS Resulted 07/26/17 17:35 Blood Blood Culture - Preliminary NO GROWTH AFTER 24 HOURS Resulted Laboratory Tests Test 07/28/17 05:50 White Blood Count 27.8 K/UL (4.8-10.8) *H Red Blood Count 4.72 M/UL (4.20-5.40) Hemoglobin 14.9 G/DL (12.0-16.0) Hematocrit 44.4 % (37.0-47.0) Mean Corpuscular Volume 94 FL (80-99) Mean Corpuscular Hemoglobin 31.7 PG (27.0-31.0) H Mean Corpuscular Hemoglobin Concent 33.6 G/DL (32.0-36.0) Red Cell Distribution Width 12.1 % (11.6-14.8) Platelet Count 212 K/UL (150-450) Mean Platelet Volume 7.8 FL (6.5-10.1) Neutrophils (%) (Auto) % (45.0-75.0) Lymphocytes (%) (Auto) % (20.0-45.0) Monocytes (%) (Auto) % (1.0-10.0) Eosinophils (%) (Auto) % (0.0-3.0) Basophils (%) (Auto) % (0.0-2.0) Differential Total Cells Counted 100 Neutrophils % (Manual) 90 % (45-75) H Lymphocytes % (Manual) 2 % (20-45) L Monocytes % (Manual) 8 % (1-10) Eosinophils % (Manual) 0 % (0-3) Basophils % (Manual) 0 % (0-2) Band Neutrophils 0 % (0-8) Platelet Estimate Adequate Platelet Morphology Normal Red Blood Cell Morphology Normal Sodium Level 135 mEQ/L (135-145) Potassium Level 3.9 mEQ/L (3.4-4.9) Chloride Level 96 mEQ/L (98-107) L Carbon Dioxide Level 27 mEQ/L (20-30) Anion Gap 12 (5-15) Blood Urea Nitrogen 9 mg/dL (7-23) Creatinine 0.8 mg/dL (0.5-0.9) Estimat Glomerular Filtration Rate mL/min (>60) Glucose Level 162 mg/dL (74-106) H Lactic Acid Level 1.70 mmol/L (0.66-2.22) Calcium Level 8.4 mg/dL (8.6-10.2) L Total Bilirubin 0.5 mg/dL (0.0-1.2) Aspartate Amino Transf (AST/SGOT) 14 U/L (5-40) Alanine Aminotransferase (ALT/SGPT) 10 U/L (3-33) Alkaline Phosphatase 79 U/L (35-104) Total Protein 6.1 g/dL (6.6-8.7) L Albumin 3.4 g/dL (3.5-5.2) L Globulin 2.7 g/dL Albumin/Globulin Ratio 1.2 (1.0-2.7) Current Medications Medications (Trade) Dose Ordered Sig/Akbar Route PRN Reason Start Time Stop Time Status Last Admin Dose Admin Acetaminophen (Tylenol) 650 mg Q4H PRN ORAL fever 07/26/17 17:45 08/25/17 17:44 Al Hydroxide/Mg Hydroxide (Mylanta II) 30 ml Q6H PRN ORAL dyspepsia 07/26/17 17:45 08/25/17 17:44 Atorvastatin Calcium (Lipitor) 20 mg BEDTIME ORAL 07/26/17 21:00 08/25/17 20:59 07/27/17 20:18 Carvedilol (Coreg) 25 mg EVERY 12 HOURS ORAL 07/26/17 21:00 08/25/17 20:59 07/28/17 09:15 Clonidine HCl (Catapres) 0.1 mg Q4H PRN ORAL For High Blood Pressure 07/26/17 17:45 08/25/17 17:44 Dextrose (Dextrose 50%) STAT PRN IV Hypoglycemia 07/26/17 17:45 08/25/17 17:44 Dextrose/Sodium Chloride 1,000 ml @ 125 mls/hr Q8H IV 07/28/17 09:00 08/27/17 08:59 07/28/17 09:17 Diphenhydramine HCl (Benadryl) 25 mg Q6H PRN ORAL Itching/Pruritis 07/26/17 17:45 08/25/17 17:44 Hydromorphone HCl (Dilaudid) 0.5 mg STAT PRN IVP For Pain 07/26/17 18:45 08/02/17 18:44 Insulin Aspart (NovoLOG) BEFORE MEALS AND HS SUBQ 07/26/17 21:00 08/25/17 20:59 Levothyroxine Sodium (Synthroid) 50 mcg ACBREAKFAST ORAL 07/27/17 06:30 08/26/17 06:29 07/28/17 05:43 Morphine Sulfate (Morphine Sulfate) 2 mg Q4H PRN IVP severe Pain (Pain Scale 7-10) 07/26/17 17:45 08/02/17 17:44 07/28/17 11:23 Nifedipine (Procardia XL) 60 mg DAILY ORAL 07/27/17 09:00 08/26/17 08:59 07/28/17 09:16 Nitroglycerin (Ntg) 0.4 mg Q5M X 3 DOSES PRN SL Prn Chest Pain 07/26/17 17:45 08/25/17 17:44 Ondansetron HCl (Zofran) 4 mg Q6H PRN IVP Nausea & Vomiting 07/26/17 17:45 08/25/17 17:44 07/27/17 20:17 Pantoprazole (Protonix) 40 mg DAILY IVP 07/27/17 10:00 08/26/17 09:59 07/28/17 09:16 Piperacillin Sod/ Tazobactam Sod 3.375 gm/Dextrose 110 ml @ 27.5 mls/hr Q8H IVPB 07/27/17 16:00 08/03/17 15:59 07/28/17 09:16 Polyethylene Glycol (Miralax) 17 gm HSPRN PRN ORAL Constipation 07/26/17 17:45 08/25/17 17:44 Temazepam (Restoril) 15 mg HSPRN PRN ORAL Insomnia 07/26/17 17:45 08/02/17 17:44 Vancomycin HCl (Vanco rx to dose) 1 ea DAILY PRN MISC Per rx protocol 07/26/17 18:00 08/25/17 17:59 Vancomycin HCl/ Dextrose 250 ml @ 166.667 mls/hr Q24H IVPB 07/27/17 12:00 08/01/17 11:59 07/28/17 11:15 Boone Carlin M.D. Jul 28, 2017 14:52
[2017-07-28 15:59] VITALS: BP 110/50
[2017-07-28 20:00] VITALS: BP 113/42
[2017-07-29] VITALS (12 sets, daily range): BP systolic 96–113; BP diastolic 36–53
[2017-07-29] MEDS: Piperacillin/Tazobactam 3.375 GM in D5W 110 ML IVPB SCH ×4 (00:17→23:47)
[2017-07-29] MEDS: D5 1/2NS 1,000 ML IV SCH ×2 (01:00→11:36)
[2017-07-29] MEDS: NovoLOG Insulin Flexpen SUBQ SCH ×4 (06:12→20:39)
[2017-07-29 07:37] LABS: MEAN CORPUSCULAR HEMOGLOBIN 31.4 PG (27.0-31.0); MEAN CORPUSCULAR HGB CONC 33.4 G/DL (32.0-36.0); MEAN CORPUSCULAR VOLUME 94 FL (80-99); MEAN PLATELET VOLUME 7.9 FL (6.5-10.1); PLATELET COUNT 192 K/UL (150-450); RED BLOOD COUNT 4.02 M/UL (4.20-5.40); RED CELL DISTRIBUTION WIDTH 12.2 % (11.6-14.8); WHITE BLOOD COUNT 21.6 K/UL (4.8-10.8)
[2017-07-29 07:56] LABS: ANION GAP 11 (5-15); CALCIUM 7.8 mg/dL (8.6-10.2); CARBON DIOXIDE 25 mEQ/L (20-30); CHLORIDE 101 mEQ/L (98-107); CREATININE 0.8 mg/dL (0.5-0.9); HEMOLYSIS 2; POTASSIUM 2.9 mEQ/L (3.4-4.9); SODIUM 137 mEQ/L (135-145)
--- NOTE | 2017-07-29 08:20 | Anethesia Preoperative Eval ---
Anesthesia Pre-op PMH/ROS General Date of Evaluation: Jul 29, 2017 Time of Evaluation: 08:14 Anesthesiologist: richie ASA Score: ASA 3 Mallampati Score Class I : Soft palate, uvula, fauces, pillars visible Class II: Soft palate, uvula, fauces visible Class III: Soft palate, base of uvula visible Class IV: Only hard plate visible Mallampati Classification: Class II Surgeon: frances Diagnosis: rectal bleeding Surgical Procedure: colonoscopy Social History: smoking - nonsmoker Allergies: Coded Allergies: Horse Serum Proteins (Verified Allergy, Unknown, SWELLING, 04/23/08) Past Medical History Cardiovascular: Reports: HTN, CAD, other - cabg Endocrine: Reports: DM, hypothyroidism Anesthesia Pre-op Phys. Exam Physician Exam Last Vital Signs Date Time Temp Pulse Resp B/P (MAP) Pulse Ox O2 Delivery O2 Flow Rate FiO2 07/29/17 04:00 97.5 62 20 100/37 91 Room Air Constitutional: NAD Neurologic: CN 2-12 intact Cardiovascular: RRR Respiratory: CTA Gastrointestinal: S/NT/ND Airway Exam Mallampati Score: Class II MO: full Neck: supple TMD: 2fb ROM: limited Anesthesia Pre-op A/P Labs Hematology Test 07/29/17 06:45 White Blood Count 21.6 K/UL (4.8-10.8) H Red Blood Count 4.02 M/UL (4.20-5.40) L Hemoglobin 12.6 G/DL (12.0-16.0) Hematocrit 37.8 % (37.0-47.0) Mean Corpuscular Volume 94 FL (80-99) Mean Corpuscular Hemoglobin 31.4 PG (27.0-31.0) H Mean Corpuscular Hemoglobin Concent 33.4 G/DL (32.0-36.0) Red Cell Distribution Width 12.2 % (11.6-14.8) Platelet Count 192 K/UL (150-450) Mean Platelet Volume 7.9 FL (6.5-10.1) Neutrophils (%) (Auto) % (45.0-75.0) Lymphocytes (%) (Auto) % (20.0-45.0) Monocytes (%) (Auto) % (1.0-10.0) Eosinophils (%) (Auto) % (0.0-3.0) Basophils (%) (Auto) % (0.0-2.0) Neutrophils % (Manual) Pending Lymphocytes % (Manual) Pending Platelet Estimate Pending Platelet Morphology Pending Chemistry Test 07/29/17 06:45 Sodium Level 137 mEQ/L (135-145) Potassium Level 2.9 mEQ/L (3.4-4.9) L Chloride Level 101 mEQ/L (98-107) Carbon Dioxide Level 25 mEQ/L (20-30) Anion Gap 11 (5-15) Blood Urea Nitrogen 5 mg/dL (7-23) L Creatinine 0.8 mg/dL (0.5-0.9) Estimat Glomerular Filtration Rate mL/min (>60) Glucose Level 153 mg/dL (74-106) H Calcium Level 7.8 mg/dL (8.6-10.2) L Risk Assessment & Plan Assessment: asa3 Plan: mac Status Change Before Surgery: No Pre-Antibiotics Drug: AVA Reynolds Jul 29, 2017 08:20
[2017-07-29] MEDS: Pantoprazole Inj IVP SCH (08:56)
[2017-07-29] MEDS: Carvedilol 25mg Tab ORAL SCH ×2 (09:00→20:35)
[2017-07-29] MEDS ORDERED: Atropine Inj 1mg/10ml Syr IV PRN ×2 (09:15→13:15)
[2017-07-29] MEDS ORDERED: Hydromorphone 0.5mg/0.5ml inj IVP PRN ×2 (09:15→13:15)
[2017-07-29] MEDS ORDERED: Midazolam 2mg/2ml Inj IVP PRN ×2 (09:15→13:15)
[2017-07-29] MEDS ORDERED: DiphenhydrAMINE 50mg/ml Inj IVP PRN ×2 (09:15→13:15)
[2017-07-29 09:16] LABS: BAND NEUTROPHILS % (MANUAL) 0 % (0-8); BASOPHILS % (MANUAL) 0 % (0-2); EOSINOPHILS % (MANUAL) 2 % (0-3); LYMPHOCYTES % (MANUAL) 6 % (20-45); NEUTROPHILS % (MANUAL) 87 % (45-75); PLATELET ESTIMATE ADEQUATE; PLATELET MORPHOLOGY NORMAL; TOTAL CELLS COUNTED 100
--- NOTE | 2017-07-29 09:19 | General Progress Note ---
Progress Note Progress Note k was replace lab ordered full consult will be dictated ANITA DOLL Jul 29, 2017 09:19
--- NOTE | 2017-07-29 11:15 | General Progress Note ---
Progress Note Progress Note Surgery: patient seen and examined at bedside. no acute events. doing well. comfortable. tolerated bowel prep and clear now. no bleeding noted recently. afebrile, HD stable, exam benign, labs reviewed. colonoscopy planned for today will follow and await results José Fuentes Jul 29, 2017 11:15
--- NOTE | 2017-07-29 11:30 | Pre-Procedure Note/Attestation ---
Pre-Procedure Note/Attestation Complete Prior to Procedure Planned Procedure: not applicable Procedure Narrative: colonoscopy Indications for Procedure Pre-Operative Diagnosis: anemia, abd pain Attestation I attest that I discussed the nature of the procedure; its benefits; risks and complications; and alternatives (and the risks and benefits of such alternatives ), prior to the procedure, with the patient (or the patient's legal product support representative). I attest that, if there was a reasonable possibility of needing a blood transfusion, the patient (or the patient's legal product support representative) was given the [facility] standardized written summary, pursuant to the [place] Blood Safety Act ([place] Health and Safety Code # 1645, as amended). I attest that I re-evaluated the patient just prior to the surgery and that there has been no change in the patient's H&P, except as documented below: REILLY ROTH Jul 29, 2017 11:30
[2017-07-29] MEDS ORDERED: Vancomycin 1.5 GM/D5W 250ML IVPB SCH (12:00)
[2017-07-29] MEDS ORDERED: Lidocaine 1% MPF 10mg/ml 5ml ONE (12:30)
[2017-07-29] MEDS ORDERED: Propofol 200mg/20ml IV ONE (12:30)
[2017-07-29] MEDS ORDERED: NS 500ML IV ONE (12:38)
--- NOTE | 2017-07-29 12:52 | Diagnostic Imaging Report ---
APPROVED REPORT CPT Code: 43587 Present Symptoms Lower Extremity Pain: Bilateral BILATERAL: Imaging reveals a patent deep venous system bilaterally. There is no evidence of thrombus within the femoral, popliteal or tibial segments. The greater saphenous veins are also within normal limits. Doppler indicates normal spontaneous flow within these segments.
--- NOTE | 2017-07-29 12:55 | Endoscopy Procedure Note ---
Endoscopy Procedure Note Indication for Procedure: colitis Procedures Performed: colonoscopy Operative Findings/Diagnosis: svere ischemic colitis Specimen: yes Pt Tolerated Procedure Well: Yes Estimated Blood Loss: none Anesthesiologist: richie Anesthesia: MAC Implant(s) used?: No 50 yrs or older w/o bx or poly: Not Applicable 10yrs. F/U not recommended: Not Applicable REILLY ROTH Jul 29, 2017 12:55
--- NOTE | 2017-07-29 13:19 | Immediate Post-Op Evaluation ---
Immediate Post-Op Evalulation Immediate Post-Op Evalulation Procedure: colonoscopy Date of Evaluation: Jul 29, 2017 Time of Evaluation: 13:18 IV Fluids: 50ml 0.9ns Blood Products: none Estimated Blood Loss: negligible Blood Pressure Systolic: 101 Blood Pressure Diastolic: 42 Pulse Rate: 54 Respiratory Rate: 18 O2 Sat by Pulse Oximetry: 94 Temperature (Fahrenheit): 99.2 Pain Score (1-10): 0 Nausea: No Vomiting: No Complications none Patient Status: awake, reacts, patent Hydration Status: adequate Drug: AVA Reynolds Jul 29, 2017 13:19
--- NOTE | 2017-07-29 13:22 | 48 Hour Post Anesthesia Eval ---
Post Anesthesia Evaluation Procedure: colonoscopy Date of Evaluation: Jul 29, 2017 Time of Evaluation: 13:21 Blood Pressure Systolic: 102 0: 37 Pulse Rate: 56 Respiratory Rate: 18 Temperature (Fahrenheit): 99.2 O2 Sat by Pulse Oximetry: 94 Airway: patent Nausea: No Vomiting: No Pain Intensity: 0 Hydration Status: adequate Cardiopulmonary Status: stable Mental Status/LOC: patient returned to baseline Post-Anesthesia Complications: none Follow-up care needed: N/A AVA KOWALSKI Jul 29, 2017 13:22
--- NOTE | 2017-07-29 14:26 | General Progress Note ---
Assessment/Plan Problem List: (1) Sepsis ICD Codes: A41.9 - Sepsis, unspecified organism SNOMED: 55304599 (2) Colitis ICD Codes: K52.9 - Noninfective gastroenteritis and colitis, unspecified SNOMED: 62402442 (3) Bright red blood per rectum ICD Codes: K62.5 - Hemorrhage of anus and rectum SNOMED: 256536967 (4) Abdominal pain ICD Codes: R10.9 - Unspecified abdominal pain SNOMED: 91271753 Qualifiers: Qualified Codes: R10.30 - Lower abdominal pain, unspecified (5) Diabetes ICD Codes: E11.9 - Type 2 diabetes mellitus without complications SNOMED: 12890960 (6) Hypothyroidism ICD Codes: E03.9 - Hypothyroidism, unspecified SNOMED: 66892561 (7) Hypertension ICD Codes: I10 - Essential (primary) hypertension SNOMED: 66996502 Status: stable, progressing, tolerating diet Assessment/Plan ot pt diet abx sx f/u cbc bmp am, Subjective Constitutional: Reports: weakness Allergies: Coded Allergies: Horse Serum Proteins (Verified Allergy, Unknown, SWELLING, 04/23/08) All Systems: reviewed and negative except above Subjective calm in bed sl weak s/p colonoscopy Objective Last 24 Hour Vital Signs Date Time Temp Pulse Resp B/P (MAP) Pulse Ox O2 Delivery O2 Flow Rate FiO2 07/29/17 13:37 98.9 59 18 105/37 96 Room Air 07/29/17 13:25 61 20 98/38 95 Room Air 07/29/17 13:22 56 18 94 07/29/17 13:19 54 18 94 07/29/17 13:15 54 16 102/37 96 Room Air 07/29/17 13:10 59 22 103/41 100 Room Air 07/29/17 13:06 99.2 65 24 96/36 100 Simple Mask 6.0 07/29/17 09:00 56 112/46 07/29/17 08:56 56 112/46 07/29/17 08:00 97.5 56 18 112/46 90 Room Air 07/29/17 04:00 97.5 62 20 100/37 91 Room Air 07/29/17 04:00 61 07/29/17 00:00 98.2 57 20 104/43 88 Room Air 07/29/17 00:00 60 07/28/17 21:00 58 113/42 07/28/17 20:09 60 07/28/17 20:00 98.1 58 18 113/42 92 Room Air 07/28/17 16:00 59 07/28/17 15:59 98.1 59 18 110/50 92 Room Air Intake and Output 07/29/17 07/30/17 19:00 07:00 Intake Total 100 ml Balance 100 ml IV Total 100 ml # Voids 1 # Bowel Movements 1 Laboratory Tests 07/29/17 06:45: White Blood Count 21.6H, Red Blood Count 4.02L, Hemoglobin 12.6, Hematocrit 37.8 , Mean Corpuscular Volume 94, Mean Corpuscular Hemoglobin 31.4H, Mean Corpuscular Hemoglobin Concent 33.4, Red Cell Distribution Width 12.2, Platelet Count 192, Mean Platelet Volume 7.9, Neutrophils (%) (Auto) , Lymphocytes (%) ( Auto) , Monocytes (%) (Auto) , Eosinophils (%) (Auto) , Basophils (%) (Auto) , Differential Total Cells Counted 100, Neutrophils % (Manual) 87H, Lymphocytes % (Manual) 6L, Monocytes % (Manual) 5, Eosinophils % (Manual) 2, Basophils % ( Manual) 0, Band Neutrophils 0, Platelet Estimate Adequate, Platelet Morphology Normal, Red Blood Cell Morphology Normal, Sodium Level 137, Potassium Level 2.9L , Chloride Level 101, Carbon Dioxide Level 25, Anion Gap 11, Blood Urea Nitrogen 5L, Creatinine 0.8, Estimat Glomerular Filtration Rate , Glucose Level 153H, Calcium Level 7.8L, Magnesium Level 1.8 07/29/17 10:45: Vancomycin Level Trough 9.1 Height (Feet): 5 Height (Inches): 4.00 Weight (Pounds): 150 General Appearance: alert EENT: normal ENT inspection Neck: normal alignment Cardiovascular: normal peripheral pulses, normal rate, regular rhythm Respiratory/Chest: chest wall non-tender, lungs clear, normal breath sounds Abdomen: normal bowel sounds, non tender, soft Extremities: normal inspection Edema: no edema noted Arm (L), no edema noted Arm (R), no edema noted Leg (L), no edema noted Leg (R), no edema noted Pedal (L), no edema noted Pedal (R), no edema noted Generalized Neurologic: responsive, motor weakness Skin: normal pigmentation, warm/dry INDIRA SALGUERO Jul 29, 2017 14:26
[2017-07-29] MEDS ORDERED: D5 1/2NS 1000ml IV ONE (14:28)
--- NOTE | 2017-07-29 16:57 | Infectious Diseases Prog Note ---
Assessment/Plan Problems: (1) Sepsis Assessment & Plan: source suspect GI tract , on zosyn and vancomycin , blood culture is negative for 48 hours, will stop vancomycin (2) Bright red blood per rectum Assessment & Plan: due to ischemic colitis , await stool for C diff , monitor H/H, transfuse blood as needed , general surgery is following , may need partial resection of her intestine (3) Abdominal pain Assessment & Plan: due to the above, continue Pain management (4) Colitis Assessment & Plan: suspect ischemic, continue conservative management , further recommendations as per surgery Subjective Constitutional: Reports: no symptoms HEENT: Reports: no symptoms Respiratory: Reports: no symptoms Breasts: Reports: no symptoms Cardiovascular: Reports: no symptoms Gastrointestinal/Abdominal: Reports: diarrhea, bloating Genitourinary: Reports: no symptoms Neurologic: Reports: no symptoms Psychiatric: Reports: no symptoms Skin: Reports: no symptoms Allergies: Coded Allergies: Horse Serum Proteins (Verified Allergy, Unknown, SWELLING, 04/23/08) Objective Vital Signs Last 24 Hour Vital Signs Date Time Temp Pulse Resp B/P (MAP) Pulse Ox O2 Delivery O2 Flow Rate FiO2 07/29/17 15:44 97.5 59 18 108/45 91 Room Air 07/29/17 13:37 98.9 59 18 105/37 96 Room Air 07/29/17 13:25 61 20 98/38 95 Room Air 07/29/17 13:22 56 18 94 07/29/17 13:19 54 18 94 07/29/17 13:15 54 16 102/37 96 Room Air 07/29/17 13:10 59 22 103/41 100 Room Air 07/29/17 13:06 99.2 65 24 96/36 100 Simple Mask 6.0 07/29/17 12:00 57 07/29/17 12:00 98.1 59 18 113/46 91 Room Air 07/29/17 09:00 56 112/46 07/29/17 08:56 56 112/46 07/29/17 08:00 97.5 56 18 112/46 90 Room Air 07/29/17 08:00 56 07/29/17 04:00 97.5 62 20 100/37 91 Room Air 07/29/17 04:00 61 07/29/17 00:00 98.2 57 20 104/43 88 Room Air 07/29/17 00:00 60 07/28/17 21:00 58 113/42 07/28/17 20:09 60 07/28/17 20:00 98.1 58 18 113/42 92 Room Air Height (Feet): 5 Height (Inches): 4.00 Weight (Pounds): 150 General Appearance: WD/WN, no acute distress HEENT: normocephalic, atraumatic, anicteric, mucous membranes moist Respiratory/Chest: chest wall non-tender, lungs clear, normal breath sounds, no respiratory distress, no accessory muscle use Cardiovascular: normal peripheral pulses, normal rate, regular rhythm Abdomen: soft, non tender, no organomegaly, non distended, no mass, hypoactive bowel sounds Skin: no rash, no lesions Microbiology Date/Time Source Procedure Growth Status 07/26/17 17:46 Blood Blood Culture - Preliminary NO GROWTH AFTER 48 HOURS Resulted 07/26/17 17:35 Blood Blood Culture - Preliminary NO GROWTH AFTER 48 HOURS Resulted Laboratory Tests Test 07/29/17 06:45 07/29/17 10:45 White Blood Count 21.6 K/UL (4.8-10.8) H Red Blood Count 4.02 M/UL (4.20-5.40) L Hemoglobin 12.6 G/DL (12.0-16.0) Hematocrit 37.8 % (37.0-47.0) Mean Corpuscular Volume 94 FL (80-99) Mean Corpuscular Hemoglobin 31.4 PG (27.0-31.0) H Mean Corpuscular Hemoglobin Concent 33.4 G/DL (32.0-36.0) Red Cell Distribution Width 12.2 % (11.6-14.8) Platelet Count 192 K/UL (150-450) Mean Platelet Volume 7.9 FL (6.5-10.1) Neutrophils (%) (Auto) % (45.0-75.0) Lymphocytes (%) (Auto) % (20.0-45.0) Monocytes (%) (Auto) % (1.0-10.0) Eosinophils (%) (Auto) % (0.0-3.0) Basophils (%) (Auto) % (0.0-2.0) Differential Total Cells Counted 100 Neutrophils % (Manual) 87 % (45-75) H Lymphocytes % (Manual) 6 % (20-45) L Monocytes % (Manual) 5 % (1-10) Eosinophils % (Manual) 2 % (0-3) Basophils % (Manual) 0 % (0-2) Band Neutrophils 0 % (0-8) Platelet Estimate Adequate Platelet Morphology Normal Red Blood Cell Morphology Normal Sodium Level 137 mEQ/L (135-145) Potassium Level 2.9 mEQ/L (3.4-4.9) L Chloride Level 101 mEQ/L (98-107) Carbon Dioxide Level 25 mEQ/L (20-30) Anion Gap 11 (5-15) Blood Urea Nitrogen 5 mg/dL (7-23) L Creatinine 0.8 mg/dL (0.5-0.9) Estimat Glomerular Filtration Rate mL/min (>60) Glucose Level 153 mg/dL (74-106) H Calcium Level 7.8 mg/dL (8.6-10.2) L Magnesium Level 1.8 mg/dL (1.7-2.5) Vancomycin Level Trough 9.1 ug/mL (5.0-12.0) Current Medications Medications (Trade) Dose Ordered Sig/Akbar Route PRN Reason Start Time Stop Time Status Last Admin Dose Admin Acetaminophen (Tylenol) 650 mg Q4H PRN ORAL fever 07/26/17 17:45 08/25/17 17:44 Al Hydroxide/Mg Hydroxide (Mylanta II) 30 ml Q6H PRN ORAL dyspepsia 07/26/17 17:45 08/25/17 17:44 Al Hydroxide/Mg Hydroxide (Mylanta) 15 ml Q1H PRN ORAL gi upset 07/29/17 13:15 07/29/17 19:15 Atorvastatin Calcium (Lipitor) 20 mg BEDTIME ORAL 07/26/17 21:00 08/25/17 20:59 07/28/17 21:29 Atropine Sulfate (Atropine) 0.5 mg Q5M PRN IV bpm less than 45 07/29/17 13:15 07/29/17 19:15 Carvedilol (Coreg) 25 mg EVERY 12 HOURS ORAL 07/26/17 21:00 08/25/17 20:59 07/28/17 09:15 Clonidine HCl (Catapres) 0.1 mg Q4H PRN ORAL For High Blood Pressure 07/26/17 17:45 08/25/17 17:44 Dextrose (Dextrose 50%) STAT PRN IV Hypoglycemia 07/26/17 17:45 08/25/17 17:44 Diphenhydramine HCl (Benadryl) 25 mg Q15M PRN IVP Itching 07/29/17 13:15 07/29/17 19:15 Diphenhydramine HCl (Benadryl) 25 mg Q6H PRN ORAL Itching/Pruritis 07/26/17 17:45 08/25/17 17:44 Hydralazine HCl (Apresoline) 5 mg Q30M PRN IV SBP>160 /DBP>90 07/29/17 13:15 07/29/17 19:15 Hydromorphone HCl (Dilaudid) 0.5 mg Q15M PRN IVP Severe Pain (Pain Scale 7-10) 07/29/17 13:15 07/29/17 19:15 Hydromorphone HCl (Dilaudid) 0.5 mg STAT PRN IVP For Pain 07/26/17 18:45 08/02/17 18:44 Insulin Aspart (NovoLOG) BEFORE MEALS AND HS SUBQ 07/26/17 21:00 08/25/17 20:59 Levothyroxine Sodium (Synthroid) 50 mcg ACBREAKFAST ORAL 07/27/17 06:30 08/26/17 06:29 07/29/17 06:06 Midazolam HCl (Versed 2mg/2ml vial) 1 mg Q15M PRN IVP For Anxiety 07/29/17 13:15 07/29/17 19:15 Morphine Sulfate (Morphine Sulfate) 2 mg Q4H PRN IVP severe Pain (Pain Scale 7-10) 07/26/17 17:45 08/02/17 17:44 07/28/17 11:23 Nifedipine (Procardia XL) 60 mg DAILY ORAL 07/27/17 09:00 08/26/17 08:59 07/29/17 08:56 Nitroglycerin (Ntg) 0.4 mg Q5M X 3 DOSES PRN SL Prn Chest Pain 07/26/17 17:45 08/25/17 17:44 Ondansetron HCl (Zofran) 4 mg Q1H PRN IVP Nausea & Vomiting 07/29/17 13:15 07/29/17 19:15 Ondansetron HCl (Zofran) 4 mg Q6H PRN IVP Nausea & Vomiting 07/26/17 17:45 08/25/17 17:44 07/27/17 20:17 Pantoprazole (Protonix) 40 mg DAILY IVP 07/27/17 10:00 08/26/17 09:59 07/29/17 08:56 Piperacillin Sod/ Tazobactam Sod 3.375 gm/Dextrose 110 ml @ 27.5 mls/hr Q8H IVPB 07/27/17 16:00 08/03/17 15:59 07/29/17 08:56 Polyethylene Glycol (Miralax) 17 gm HSPRN PRN ORAL Constipation 07/26/17 17:45 08/25/17 17:44 Potassium Chloride 40 meq/ Dextrose/Sodium Chloride 1,020 ml @ 75 mls/hr [id number] IV 07/29/17 15:00 08/28/17 14:59 Temazepam (Restoril) 15 mg HSPRN PRN ORAL Insomnia 07/26/17 17:45 08/02/17 17:44 Vancomycin HCl (Vanco rx to dose) 1 ea DAILY PRN MISC Per rx protocol 07/26/17 18:00 08/25/17 17:59 Vancomycin HCl/ Dextrose 250 ml @ 125 mls/hr Q24H IVPB 07/29/17 12:00 08/03/17 11:59 07/29/17 15:17 Boone Carlin M.D. Jul 29, 2017 16:57
[2017-07-29] MEDS: Potassium Chloride 40 MEQ in D5 1/2NS 1,000 ML IV SCH (17:34)
--- NOTE | 2017-07-29 18:30 | Procedure Note ---
DATE OF PROCEDURE: 07/29/2017 SURGEON: Ferdinand Montano M.D. PROCEDURE: Colonoscopy with biopsy. ANESTHESIOLOGIST: Milagro Christie M.D. INSTRUMENT: Olympus adult flexible colonoscope. INDICATION: Rectal bleeding and colitis. Reason for Procedure: The procedure, risks, benefits, and possible consequences, including hemorrhage, aspiration, perforation and infection, and alternative treatments, were explained to the patient/legal guardian by Dr. Ferdinand Montano and the patient/legal guardian understood and accepted these risks. Procedure: After informed consent was obtained and the patient was adequately sedated, first rectal exam was performed, which was normal. Then, the scope was advanced from the rectum into proximal transverse colon. Given risk of perforation, we stopped the procedure at this time. The patient has severe colonic inflammation and ulceration starting at about 35 cm from the anal verge, expanding to as far we expanded the scope all way to the proximal transverse colon. There was some area of the blue color changes of the lining of the mucosa suspicious for necrosis. Multiple biopsy was obtained and the scope was gradually retrieved. The patient also evidence of diverticulosis in the sigmoid colon. Retroflexion of rectum showed evidence of internal hemorrhoids. SUMMARY FINDINGS: 1. Severe colitis, most likely ischemic, status post biopsy. 2. Diverticulosis. 3. Internal hemorrhoids. RECOMMENDATIONS: 1. Followup biopsy results and treat accordingly. 2. Follow with a surgical recommendation. 3. Continue on IV antibiotics, keep the patient NPO, bowel rest with intravenous fluids and intravenous hydration. When the patient recovers from this, will need a full colonoscopy, given at this time we did not complete it given the risk of perforation. I want to thank, Dr. Vernon Decker, for this kind referral. Ferdinand Montano M.D. DR: MATTHIEU JOB#: [id number] CC: Vernon Decker D.O.
[2017-07-30 04:00] VITALS: BP 110/46
[2017-07-30] MEDS: Potassium Chloride 40 MEQ in D5 1/2NS 1,000 ML IV SCH ×2 (04:55→18:20)
[2017-07-30] MEDS: NovoLOG Insulin Flexpen SUBQ SCH ×4 (06:06→21:00)
[2017-07-30 07:02] LABS: MEAN CORPUSCULAR HEMOGLOBIN 31.1 PG (27.0-31.0); MEAN CORPUSCULAR HGB CONC 33.2 G/DL (32.0-36.0); MEAN CORPUSCULAR VOLUME 94 FL (80-99); PLATELET COUNT 186 K/UL (150-450); RED BLOOD COUNT 4.24 M/UL (4.20-5.40); RED CELL DISTRIBUTION WIDTH 12.2 % (11.6-14.8); WHITE BLOOD COUNT 15.8 K/UL (4.8-10.8)
[2017-07-30 07:05] LABS: PROTHROMBIN TIME 10.5 SEC (9.30-11.50)
[2017-07-30 07:18] LABS: ALANINE AMINOTRANSFERASE 10 U/L (3-33); ANION GAP 13 (5-15); ASPARTATE AMINO TRANSFERASE 17 U/L (5-40); CALCIUM 8.1 mg/dL (8.6-10.2); CARBON DIOXIDE 23 mEQ/L (20-30); CHLORIDE 104 mEQ/L (98-107); HEMOLYSIS 2; MAGNESIUM 1.7 mg/dL (1.7-2.5); PHOSPHORUS 1.8 mg/dL (2.5-4.8); POTASSIUM 3.4 mEQ/L (3.4-4.9); SODIUM 140 mEQ/L (135-145); TOTAL PROTEIN 5.4 g/dL (6.6-8.7)
[2017-07-30 07:35] LABS: CREATININE 1.5 mg/dL (0.5-0.9)
[2017-07-30 08:13] VITALS: BP 108/47
--- NOTE | 2017-07-30 08:15 | Consultation ---
DATE OF CONSULTATION: 07/29/2017 NEPHROLOGY CONSULTATION CONSULTING PHYSICIAN: Vickie Booker M.D. REFERRING PHYSICIAN: Vernon Decker D.O. REASON FOR CONSULTATION: Persistent hypokalemia. History Of Present Illness: The patient is an 81-year-old female with past medical history significant for diabetes and hypertension, who presented to [facility] complaining of increasing abdominal pain, left-sided, not radiating, and was associated with bloody diarrhea. Apparently, the patient started with significant constipation. The patient later on started having diarrhea with bright red blood per rectum. The patient with these symptoms, presented to emergency room and had a CT scan of the abdomen, which revealed transverse and descending colon possibly colitis and diverticulitis. The patient was also found to have an elevated white blood cell count. The patient received a prep for colonoscopy and endoscopy today. Over the course of hospital stay, the patient was found to have a significant low potassium. Later on, the patient was admitted and I was called for management of renal disease and electrolyte imbalance. Past Medical History: History of hypertension and history of diabetes. PAST SURGICAL HISTORY: None. ALLERGIES: She is allergic to horse serum. Social History: She lives at home. There is no history of tobacco, alcohol, or drug use. Family History: Negative for any history of premature heart disease, kidney disease, or history of any cancer. Review Of Systems: General: She complained of generalized weakness. Denied any fever, chills, or night sweats. Head And Neck: Denies any dysphagia, odynophagia, blurry vision, headache, or neck stiffness. Pulmonary: Denies any shortness of breath, cough, or sputum. Cardiovascular: Denies any chest pain or palpitation. Gastrointestinal: As above. Genitourinary: Denies any dysuria, frequency, or hematuria. Musculoskeletal: She complained of generalized weakness. Denies any localized weakness or numbness. PHYSICAL EXAMINATION: Vital Signs: The patient has a temperature of 98 degrees, blood pressure of 103/41, pulse rate of 59, and respiratory rate of 18. Head and Neck: No JVP. No LAD. No thyromegaly. Extraocular movement intact. Pupils are reactive to light and accommodation. LUNGS: Clear to auscultation. CARDIAC: Regular rate and rhythm. S1 and S2. No murmur. No rub. ABDOMEN: Soft, nontender, and nondistended. EXTREMITIES: No edema. No clubbing. No cyanosis. Neurologic: Cranial nerves II through XII within normal limits. Upper and lower extremities are grossly intact. Laboratory And Diagnostic Data: Lab value revealed WBC count of 21,000, hemoglobin of 4.6, hematocrit of 37, and platelet count of 100,000. Chemistry revealed sodium 137, potassium 2.9, 101 chloride, 25 bicarbonate, BUN of 5, creatinine of 0.8, glucose of 153, and calcium of 7.9. Total protein of 6.1. Albumin of 3.4. Globulin of 2.7. Urine revealed a specific gravity of 1.010, pH of 6, ketones 2+, no WBC, and no RBC. ASSESSMENT: 1. Significant hypokalemia, most likely gastrointestinal loss, unlikely to be a renal loss. 2. Dehydration. 3. Severe colitis. 4. Hypertension. 5. Diabetes. Plan: Plan for the patient is to check the urine sodium, urine creatinine, and urine potassium for evaluation of gastrointestinal versus renal loss of potassium. Replace potassium. Check the magnesium level. Changed intravenous fluid to D5 water plus potassium. Avoid any NSAID or nephrotoxic. Replace the electrolytes as needed. At the end, I would like to thank Dr. Vernon Decker for allowing me to participate in the care of this patient. Vickie Booker M.D. DR: ROBERT JOB#: [id number] CC:
[2017-07-30] MEDS: Pantoprazole Inj IVP SCH (08:40)
[2017-07-30] MEDS: Piperacillin/Tazobactam 3.375 GM in D5W 110 ML IVPB SCH ×2 (08:40→16:26)
[2017-07-30] MEDS: Carvedilol 25mg Tab ORAL SCH ×2 (09:00→21:00)
[2017-07-30 10:15] LABS: BAND NEUTROPHILS % (MANUAL) 0 % (0-8); BASOPHILS % (MANUAL) 1 % (0-2); EOSINOPHILS % (MANUAL) 3 % (0-3); LYMPHOCYTES % (MANUAL) 6 % (20-45); NEUTROPHILS % (MANUAL) 84 % (45-75); PLATELET ESTIMATE ADEQUATE; PLATELET MORPHOLOGY NORMAL; TOTAL CELLS COUNTED 100
[2017-07-30 11:30] VITALS: BP 121/52
--- NOTE | 2017-07-30 13:16 | General Progress Note ---
Assessment/Plan Problem List: (1) Sepsis ICD Codes: A41.9 - Sepsis, unspecified organism SNOMED: 08406683 (2) Colitis ICD Codes: K52.9 - Noninfective gastroenteritis and colitis, unspecified SNOMED: 07909937 (3) Bright red blood per rectum ICD Codes: K62.5 - Hemorrhage of anus and rectum SNOMED: 833879150 (4) Abdominal pain ICD Codes: R10.9 - Unspecified abdominal pain SNOMED: 09740223 Qualifiers: Qualified Codes: R10.30 - Lower abdominal pain, unspecified (5) Diabetes ICD Codes: E11.9 - Type 2 diabetes mellitus without complications SNOMED: 17887493 (6) Hypothyroidism ICD Codes: E03.9 - Hypothyroidism, unspecified SNOMED: 53159018 (7) Hypertension ICD Codes: I10 - Essential (primary) hypertension SNOMED: 61099307 Status: unchanged Assessment/Plan ot pt diet abx sx f/u cbc bmp am, Subjective Constitutional: Reports: weakness Allergies: Coded Allergies: Horse Serum Proteins (Verified Allergy, Unknown, SWELLING, 04/23/08) All Systems: reviewed and negative except above Subjective calm in bed sl weak s/p colonoscopy Objective Last 24 Hour Vital Signs Date Time Temp Pulse Resp B/P (MAP) Pulse Ox O2 Delivery O2 Flow Rate FiO2 07/30/17 11:30 97.2 58 20 121/52 96 Nasal Cannula 2.0 07/30/17 09:00 58 108/47 07/30/17 08:39 57 108/47 07/30/17 08:13 97.8 57 20 108/47 92 Nasal Cannula 2.0 07/30/17 04:00 59 07/30/17 04:00 97.7 58 18 110/46 94 Nasal Cannula 2.0 07/30/17 00:00 62 07/29/17 23:48 98.8 59 18 103/53 95 Room Air 07/29/17 20:35 58 108/45 07/29/17 20:00 56 07/29/17 20:00 97.7 63 18 113/50 92 Room Air 07/29/17 16:00 58 07/29/17 15:44 97.5 59 18 108/45 91 Room Air 07/29/17 13:37 98.9 59 18 105/37 96 Room Air 07/29/17 13:25 61 20 98/38 95 Room Air 07/29/17 13:22 56 18 94 07/29/17 13:19 54 18 94 Laboratory Tests 07/30/17 06:35: White Blood Count 15.8H, Red Blood Count 4.24, Hemoglobin 13.2, Hematocrit 39.8 , Mean Corpuscular Volume 94, Mean Corpuscular Hemoglobin 31.1H, Mean Corpuscular Hemoglobin Concent 33.2, Red Cell Distribution Width 12.2, Platelet Count 186, Mean Platelet Volume 8.0, Neutrophils (%) (Auto) , Lymphocytes (%) ( Auto) , Monocytes (%) (Auto) , Eosinophils (%) (Auto) , Basophils (%) (Auto) , Differential Total Cells Counted 100, Neutrophils % (Manual) 84H, Lymphocytes % (Manual) 6L, Monocytes % (Manual) 6, Eosinophils % (Manual) 3, Basophils % ( Manual) 1, Band Neutrophils 0, Platelet Estimate Adequate, Platelet Morphology Normal, Red Blood Cell Morphology Normal, Prothrombin Time 10.5, Prothromb Time International Ratio 1.0, Activated Partial Thromboplast Time 29, Sodium Level 140, Potassium Level 3.4, Chloride Level 104, Carbon Dioxide Level 23, Anion Gap 13, Blood Urea Nitrogen 7, Creatinine 1.5#H, Estimat Glomerular Filtration Rate , Glucose Level 160H, Calcium Level 8.1L, Phosphorus Level 1.8L, Magnesium Level 1.7, Total Bilirubin 0.5, Aspartate Amino Transf (AST/SGOT) 17, Alanine Aminotransferase (ALT/SGPT) 10, Alkaline Phosphatase 52, Total Protein 5.4L, Albumin 2.8L, Globulin 2.6, Albumin/Globulin Ratio 1.0 Height (Feet): 5 Height (Inches): 4.00 Weight (Pounds): 150 General Appearance: alert EENT: normal ENT inspection Neck: normal alignment Cardiovascular: normal peripheral pulses, normal rate, regular rhythm Respiratory/Chest: chest wall non-tender, lungs clear, normal breath sounds Abdomen: non tender, soft, hypoactive bowel sounds Extremities: normal inspection Edema: no edema noted Arm (L), no edema noted Arm (R), no edema noted Leg (L), no edema noted Leg (R), no edema noted Pedal (L), no edema noted Pedal (R), no edema noted Generalized Neurologic: responsive, motor weakness Skin: normal pigmentation, warm/dry INDIRA SALGUERO Jul 30, 2017 13:16
--- NOTE | 2017-07-30 14:18 | Nephrology Progress Note ---
Assessment/Plan Assessment 1. Significant hypokalemia, 2. Dehydration. 3.ARF . 4. Hypertension. 5. Diabetes. Plan PLAN to continue ivf monitoring renal function avoid NSAID replace k us of kidney Subjective Constitutional: Reports: malaise, weakness HEENT: Reports: no symptoms Genitourinary: Reports: no symptoms Neurologic/Psychiatric: Reports: no symptoms Subjective alert and wake feeling better less melena still NPO Objective Objective Last 24 Hour Vital Signs Date Time Temp Pulse Resp B/P (MAP) Pulse Ox O2 Delivery O2 Flow Rate FiO2 07/30/17 11:30 97.2 58 20 121/52 96 Nasal Cannula 2.0 07/30/17 09:00 58 108/47 07/30/17 08:39 57 108/47 07/30/17 08:13 97.8 57 20 108/47 92 Nasal Cannula 2.0 07/30/17 04:00 59 07/30/17 04:00 97.7 58 18 110/46 94 Nasal Cannula 2.0 07/30/17 00:00 62 07/29/17 23:48 98.8 59 18 103/53 95 Room Air 07/29/17 20:35 58 108/45 07/29/17 20:00 56 07/29/17 20:00 97.7 63 18 113/50 92 Room Air 07/29/17 16:00 58 07/29/17 15:44 97.5 59 18 108/45 91 Room Air Laboratory Tests 07/30/17 06:35: White Blood Count 15.8H, Red Blood Count 4.24, Hemoglobin 13.2, Hematocrit 39.8 , Mean Corpuscular Volume 94, Mean Corpuscular Hemoglobin 31.1H, Mean Corpuscular Hemoglobin Concent 33.2, Red Cell Distribution Width 12.2, Platelet Count 186, Mean Platelet Volume 8.0, Neutrophils (%) (Auto) , Lymphocytes (%) ( Auto) , Monocytes (%) (Auto) , Eosinophils (%) (Auto) , Basophils (%) (Auto) , Differential Total Cells Counted 100, Neutrophils % (Manual) 84H, Lymphocytes % (Manual) 6L, Monocytes % (Manual) 6, Eosinophils % (Manual) 3, Basophils % ( Manual) 1, Band Neutrophils 0, Platelet Estimate Adequate, Platelet Morphology Normal, Red Blood Cell Morphology Normal, Prothrombin Time 10.5, Prothromb Time International Ratio 1.0, Activated Partial Thromboplast Time 29, Sodium Level 140, Potassium Level 3.4, Chloride Level 104, Carbon Dioxide Level 23, Anion Gap 13, Blood Urea Nitrogen 7, Creatinine 1.5#H, Estimat Glomerular Filtration Rate , Glucose Level 160H, Calcium Level 8.1L, Phosphorus Level 1.8L, Magnesium Level 1.7, Total Bilirubin 0.5, Aspartate Amino Transf (AST/SGOT) 17, Alanine Aminotransferase (ALT/SGPT) 10, Alkaline Phosphatase 52, Total Protein 5.4L, Albumin 2.8L, Globulin 2.6, Albumin/Globulin Ratio 1.0 Height (Feet): 5 Height (Inches): 4.00 Weight (Pounds): 150 Objective HEENT : No JVP. No LAD. No thyromegaly. Extraocular movement intact. Pupils are reactive to light and accommodation. LUNGS: Clear to auscultation. CARDIAC: Regular rate and rhythm. S1 and S2. No murmur. No rub. ABDOMEN: Soft, nontender, and nondistended. EXTREMITIES: No edema. No clubbing. No cyanosis. Neurologic: Cranial nerves II through XII within normal limits. Upper and lower extremities are grossly intact. ANITA DOLL Jul 30, 2017 14:17
--- NOTE | 2017-07-30 14:28 | GI Progress Note ---
Assessment/Plan Problems: (1) Colitis ICD Codes: K52.9 - Noninfective gastroenteritis and colitis, unspecified SNOMED: 04715438 (2) Bright red blood per rectum ICD Codes: K62.5 - Hemorrhage of anus and rectum SNOMED: 581982776 (3) Diabetes ICD Codes: E11.9 - Type 2 diabetes mellitus without complications SNOMED: 02465928 (4) Abdominal pain ICD Codes: R10.9 - Unspecified abdominal pain SNOMED: 11696581 Qualifiers: Qualified Codes: R10.30 - Lower abdominal pain, unspecified Status: progressing Status Narrative Discussed with Dr. Montano. Assessment/Plan SUMMARY FINDINGS: 1. Severe colitis, most likely ischemic, status post biopsy. 2. Diverticulosis. 3. Internal hemorrhoids. RECOMMENDATIONS: 1. Followup biopsy results and treat accordingly. 2. Follow with a surgical recommendation. 3. Continue on IV antibiotics, keep the patient NPO, bowel rest with intravenous fluids and intravenous hydration. - follow WBC, plan to resume diet tomorrow - pt will need a full colonoscopy, given at this time we did not complete it given the risk of perforation. Subjective Gastrointestinal/Abdominal: Reports: abdominal pain Objective Last 24 Hour Vital Signs Date Time Temp Pulse Resp B/P (MAP) Pulse Ox O2 Delivery O2 Flow Rate FiO2 07/30/17 11:30 97.2 58 20 121/52 96 Nasal Cannula 2.0 07/30/17 09:00 58 108/47 07/30/17 08:39 57 108/47 07/30/17 08:13 97.8 57 20 108/47 92 Nasal Cannula 2.0 07/30/17 04:00 59 07/30/17 04:00 97.7 58 18 110/46 94 Nasal Cannula 2.0 07/30/17 00:00 62 07/29/17 23:48 98.8 59 18 103/53 95 Room Air 07/29/17 20:35 58 108/45 07/29/17 20:00 56 07/29/17 20:00 97.7 63 18 113/50 92 Room Air 07/29/17 16:00 58 07/29/17 15:44 97.5 59 18 108/45 91 Room Air Laboratory Tests Test 07/30/17 06:35 White Blood Count 15.8 K/UL (4.8-10.8) H Red Blood Count 4.24 M/UL (4.20-5.40) Hemoglobin 13.2 G/DL (12.0-16.0) Hematocrit 39.8 % (37.0-47.0) Mean Corpuscular Volume 94 FL (80-99) Mean Corpuscular Hemoglobin 31.1 PG (27.0-31.0) H Mean Corpuscular Hemoglobin Concent 33.2 G/DL (32.0-36.0) Red Cell Distribution Width 12.2 % (11.6-14.8) Platelet Count 186 K/UL (150-450) Mean Platelet Volume 8.0 FL (6.5-10.1) Neutrophils (%) (Auto) % (45.0-75.0) Lymphocytes (%) (Auto) % (20.0-45.0) Monocytes (%) (Auto) % (1.0-10.0) Eosinophils (%) (Auto) % (0.0-3.0) Basophils (%) (Auto) % (0.0-2.0) Differential Total Cells Counted 100 Neutrophils % (Manual) 84 % (45-75) H Lymphocytes % (Manual) 6 % (20-45) L Monocytes % (Manual) 6 % (1-10) Eosinophils % (Manual) 3 % (0-3) Basophils % (Manual) 1 % (0-2) Band Neutrophils 0 % (0-8) Platelet Estimate Adequate Platelet Morphology Normal Red Blood Cell Morphology Normal Prothrombin Time 10.5 SEC (9.30-11.50) Prothromb Time International Ratio 1.0 (0.9-1.1) Activated Partial Thromboplast Time 29 SEC (23-33) Sodium Level 140 mEQ/L (135-145) Potassium Level 3.4 mEQ/L (3.4-4.9) Chloride Level 104 mEQ/L (98-107) Carbon Dioxide Level 23 mEQ/L (20-30) Anion Gap 13 (5-15) Blood Urea Nitrogen 7 mg/dL (7-23) Creatinine 1.5 mg/dL (0.5-0.9) #H Estimat Glomerular Filtration Rate mL/min (>60) Glucose Level 160 mg/dL (74-106) H Calcium Level 8.1 mg/dL (8.6-10.2) L Phosphorus Level 1.8 mg/dL (2.5-4.8) L Magnesium Level 1.7 mg/dL (1.7-2.5) Total Bilirubin 0.5 mg/dL (0.0-1.2) Aspartate Amino Transf (AST/SGOT) 17 U/L (5-40) Alanine Aminotransferase (ALT/SGPT) 10 U/L (3-33) Alkaline Phosphatase 52 U/L (35-104) Total Protein 5.4 g/dL (6.6-8.7) L Albumin 2.8 g/dL (3.5-5.2) L Globulin 2.6 g/dL Albumin/Globulin Ratio 1.0 (1.0-2.7) Height (Feet): 5 Height (Inches): 4.00 Weight (Pounds): 150 General Appearance: no apparent distress, alert, overweight Cardiovascular: normal rate Respiratory/Chest: normal breath sounds, no respiratory distress Abdominal Exam: normal bowel sounds, non tender, soft Extremities: normal range of motion Lidya Newell N.P. Jul 30, 2017 14:28
--- NOTE | 2017-07-30 14:50 | General Progress Note ---
Progress Note Progress Note surgery: doing well. no acute events. colonoscopy went well. afebrile, HD stable, labs stable, exam benign. states she is feeling great. no acute surgical intervention. continue with medical management. will follow José Fuentes Jul 30, 2017 14:50
[2017-07-30 16:00] VITALS: BP 113/56
--- NOTE | 2017-07-30 17:14 | Infectious Diseases Prog Note ---
Assessment/Plan Problems: (1) Sepsis Assessment & Plan: source suspect GI tract , now improving on zosyn , blood culture is negative so far (2) Bright red blood per rectum Assessment & Plan: due to ischemic colitis , await stool for C diff is negative , monitor H/H, transfuse blood as needed , general surgery is following (3) Abdominal pain Assessment & Plan: due to the above, continue Pain management (4) Colitis Assessment & Plan: suspect ischemic, continue conservative management , further recommendations as per surgery Subjective Constitutional: Reports: no symptoms HEENT: Reports: no symptoms Respiratory: Reports: no symptoms Breasts: Reports: no symptoms Cardiovascular: Reports: no symptoms Gastrointestinal/Abdominal: Reports: no symptoms Genitourinary: Reports: no symptoms Neurologic: Reports: no symptoms Psychiatric: Reports: no symptoms Skin: Reports: no symptoms Endocrine: Reports: no symptoms Allergies: Coded Allergies: Horse Serum Proteins (Verified Allergy, Unknown, SWELLING, 04/23/08) Objective Vital Signs Last 24 Hour Vital Signs Date Time Temp Pulse Resp B/P (MAP) Pulse Ox O2 Delivery O2 Flow Rate FiO2 07/30/17 16:00 97.5 57 20 113/56 92 Room Air 07/30/17 16:00 53 07/30/17 12:00 55 07/30/17 11:30 97.2 58 20 121/52 96 Nasal Cannula 2.0 07/30/17 09:00 58 108/47 07/30/17 08:39 57 108/47 07/30/17 08:13 97.8 57 20 108/47 92 Nasal Cannula 2.0 07/30/17 08:00 53 07/30/17 04:00 59 07/30/17 04:00 97.7 58 18 110/46 94 Nasal Cannula 2.0 07/30/17 00:00 62 07/29/17 23:48 98.8 59 18 103/53 95 Room Air 07/29/17 20:35 58 108/45 07/29/17 20:00 56 07/29/17 20:00 97.7 63 18 113/50 92 Room Air Height (Feet): 5 Height (Inches): 4.00 Weight (Pounds): 150 General Appearance: WD/WN, no acute distress HEENT: normocephalic, atraumatic, anicteric, mucous membranes moist Respiratory/Chest: chest wall non-tender, lungs clear, normal breath sounds, no respiratory distress, no accessory muscle use Cardiovascular: normal peripheral pulses, normal rate, regular rhythm, no JVD Abdomen: normal bowel sounds, soft, non tender, no organomegaly, non distended , no mass, no scars Extremities: no cyanosis, no clubbing Skin: no rash, no lesions Laboratory Tests Test 07/30/17 06:35 White Blood Count 15.8 K/UL (4.8-10.8) H Red Blood Count 4.24 M/UL (4.20-5.40) Hemoglobin 13.2 G/DL (12.0-16.0) Hematocrit 39.8 % (37.0-47.0) Mean Corpuscular Volume 94 FL (80-99) Mean Corpuscular Hemoglobin 31.1 PG (27.0-31.0) H Mean Corpuscular Hemoglobin Concent 33.2 G/DL (32.0-36.0) Red Cell Distribution Width 12.2 % (11.6-14.8) Platelet Count 186 K/UL (150-450) Mean Platelet Volume 8.0 FL (6.5-10.1) Neutrophils (%) (Auto) % (45.0-75.0) Lymphocytes (%) (Auto) % (20.0-45.0) Monocytes (%) (Auto) % (1.0-10.0) Eosinophils (%) (Auto) % (0.0-3.0) Basophils (%) (Auto) % (0.0-2.0) Differential Total Cells Counted 100 Neutrophils % (Manual) 84 % (45-75) H Lymphocytes % (Manual) 6 % (20-45) L Monocytes % (Manual) 6 % (1-10) Eosinophils % (Manual) 3 % (0-3) Basophils % (Manual) 1 % (0-2) Band Neutrophils 0 % (0-8) Platelet Estimate Adequate Platelet Morphology Normal Red Blood Cell Morphology Normal Prothrombin Time 10.5 SEC (9.30-11.50) Prothromb Time International Ratio 1.0 (0.9-1.1) Activated Partial Thromboplast Time 29 SEC (23-33) Sodium Level 140 mEQ/L (135-145) Potassium Level 3.4 mEQ/L (3.4-4.9) Chloride Level 104 mEQ/L (98-107) Carbon Dioxide Level 23 mEQ/L (20-30) Anion Gap 13 (5-15) Blood Urea Nitrogen 7 mg/dL (7-23) Creatinine 1.5 mg/dL (0.5-0.9) #H Estimat Glomerular Filtration Rate mL/min (>60) Glucose Level 160 mg/dL (74-106) H Calcium Level 8.1 mg/dL (8.6-10.2) L Phosphorus Level 1.8 mg/dL (2.5-4.8) L Magnesium Level 1.7 mg/dL (1.7-2.5) Total Bilirubin 0.5 mg/dL (0.0-1.2) Aspartate Amino Transf (AST/SGOT) 17 U/L (5-40) Alanine Aminotransferase (ALT/SGPT) 10 U/L (3-33) Alkaline Phosphatase 52 U/L (35-104) Total Protein 5.4 g/dL (6.6-8.7) L Albumin 2.8 g/dL (3.5-5.2) L Globulin 2.6 g/dL Albumin/Globulin Ratio 1.0 (1.0-2.7) Current Medications Medications (Trade) Dose Ordered Sig/Akbar Route PRN Reason Start Time Stop Time Status Last Admin Dose Admin Acetaminophen (Tylenol) 650 mg Q4H PRN ORAL fever 07/26/17 17:45 08/25/17 17:44 Al Hydroxide/Mg Hydroxide (Mylanta II) 30 ml Q6H PRN ORAL dyspepsia 07/26/17 17:45 08/25/17 17:44 Atorvastatin Calcium (Lipitor) 20 mg BEDTIME ORAL 07/26/17 21:00 08/25/17 20:59 07/29/17 20:34 Carvedilol (Coreg) 25 mg EVERY 12 HOURS ORAL 07/26/17 21:00 08/25/17 20:59 07/29/17 20:35 Clonidine HCl (Catapres) 0.1 mg Q4H PRN ORAL For High Blood Pressure 07/26/17 17:45 08/25/17 17:44 Dextrose (Dextrose 50%) STAT PRN IV Hypoglycemia 07/26/17 17:45 08/25/17 17:44 Diphenhydramine HCl (Benadryl) 25 mg Q6H PRN ORAL Itching/Pruritis 07/26/17 17:45 08/25/17 17:44 Hydromorphone HCl (Dilaudid) 0.5 mg STAT PRN IVP For Pain 07/26/17 18:45 08/02/17 18:44 Insulin Aspart (NovoLOG) BEFORE MEALS AND HS SUBQ 07/26/17 21:00 08/25/17 20:59 Levothyroxine Sodium (Synthroid) 50 mcg ACBREAKFAST ORAL 07/27/17 06:30 08/26/17 06:29 07/30/17 06:06 Morphine Sulfate (Morphine Sulfate) 2 mg Q4H PRN IVP severe Pain (Pain Scale 7-10) 07/26/17 17:45 08/02/17 17:44 07/28/17 11:23 Nifedipine (Procardia XL) 60 mg DAILY ORAL 07/27/17 09:00 08/26/17 08:59 07/30/17 08:39 Nitroglycerin (Ntg) 0.4 mg Q5M X 3 DOSES PRN SL Prn Chest Pain 07/26/17 17:45 08/25/17 17:44 Ondansetron HCl (Zofran) 4 mg Q6H PRN IVP Nausea & Vomiting 07/26/17 17:45 08/25/17 17:44 07/27/17 20:17 Pantoprazole (Protonix) 40 mg DAILY IVP 07/27/17 10:00 08/26/17 09:59 07/30/17 08:40 Piperacillin Sod/ Tazobactam Sod 3.375 gm/Dextrose 110 ml @ 27.5 mls/hr Q8H IVPB 07/27/17 16:00 08/03/17 15:59 07/30/17 16:26 Polyethylene Glycol (Miralax) 17 gm HSPRN PRN ORAL Constipation 07/26/17 17:45 08/25/17 17:44 Potassium Chloride 40 meq/ Dextrose/Sodium Chloride 1,020 ml @ 75 mls/hr [id number] IV 07/29/17 15:00 08/28/17 14:59 07/30/17 04:55 Temazepam (Restoril) 15 mg HSPRN PRN ORAL Insomnia 07/26/17 17:45 08/02/17 17:44 Boone Carlin M.D. Jul 30, 2017 17:14
[2017-07-30 21:00] VITALS: BP 115/50
--- NOTE | 2017-07-30 21:40 | Pulmonology Progress Note ---
Assessment/Plan Problems: (1) Diabetes (2) Abdominal pain (3) Bright red blood per rectum (4) Colitis (5) Sepsis Assessment/Plan colonoscopy report noted check h/h check cultures symptomatic treatment prbc prn dvt prophylaxis Subjective ROS Limited/Unobtainable: No Interval Events: late ntoe for 07/29, tolerated colonoscopy very well Constitutional: Reports: no symptoms HEENT: Repors: no symptoms Allergies: Coded Allergies: Horse Serum Proteins (Verified Allergy, Unknown, SWELLING, 04/23/08) Objective Last 24 Hour Vital Signs Date Time Temp Pulse Resp B/P (MAP) Pulse Ox O2 Delivery O2 Flow Rate FiO2 07/30/17 21:00 57 115/50 07/30/17 21:00 98.3 57 18 115/50 96 Nasal Cannula 2.0 07/30/17 16:00 97.5 57 20 113/56 92 Room Air 07/30/17 16:00 53 07/30/17 12:00 55 07/30/17 11:30 97.2 58 20 121/52 96 Nasal Cannula 2.0 07/30/17 09:00 58 108/47 07/30/17 08:39 57 108/47 07/30/17 08:13 97.8 57 20 108/47 92 Nasal Cannula 2.0 07/30/17 08:00 53 07/30/17 04:00 59 07/30/17 04:00 97.7 58 18 110/46 94 Nasal Cannula 2.0 07/30/17 00:00 62 07/29/17 23:48 98.8 59 18 103/53 95 Room Air General Appearance: WD/WN, no acute distress HEENT: normocephalic, atraumatic Respiratory/Chest: chest wall non-tender, lungs clear Breasts: no masses Cardiovascular: normal peripheral pulses, regular rhythm Abdomen: normal bowel sounds, soft, non tender Genitourinary: normal external genitalia Extremities: no clubbing Skin: no ulcers 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, 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 Laboratory Tests 07/30/17 06:35: White Blood Count 15.8H, Red Blood Count 4.24, Hemoglobin 13.2, Hematocrit 39.8 , Mean Corpuscular Volume 94, Mean Corpuscular Hemoglobin 31.1H, Mean Corpuscular Hemoglobin Concent 33.2, Red Cell Distribution Width 12.2, Platelet Count 186, Mean Platelet Volume 8.0, Neutrophils (%) (Auto) , Lymphocytes (%) ( Auto) , Monocytes (%) (Auto) , Eosinophils (%) (Auto) , Basophils (%) (Auto) , Differential Total Cells Counted 100, Neutrophils % (Manual) 84H, Lymphocytes % (Manual) 6L, Monocytes % (Manual) 6, Eosinophils % (Manual) 3, Basophils % ( Manual) 1, Band Neutrophils 0, Platelet Estimate Adequate, Platelet Morphology Normal, Red Blood Cell Morphology Normal, Prothrombin Time 10.5, Prothromb Time International Ratio 1.0, Activated Partial Thromboplast Time 29, Sodium Level 140, Potassium Level 3.4, Chloride Level 104, Carbon Dioxide Level 23, Anion Gap 13, Blood Urea Nitrogen 7, Creatinine 1.5#H, Estimat Glomerular Filtration Rate , Glucose Level 160H, Calcium Level 8.1L, Phosphorus Level 1.8L, Magnesium Level 1.7, Total Bilirubin 0.5, Aspartate Amino Transf (AST/SGOT) 17, Alanine Aminotransferase (ALT/SGPT) 10, Alkaline Phosphatase 52, Total Protein 5.4L, Albumin 2.8L, Globulin 2.6, Albumin/Globulin Ratio 1.0 Current Medications Medications (Trade) Dose Ordered Sig/Akbar Route PRN Reason Start Time Stop Time Status Last Admin Dose Admin Acetaminophen (Tylenol) 650 mg Q4H PRN ORAL fever 07/26/17 17:45 08/25/17 17:44 Al Hydroxide/Mg Hydroxide (Mylanta II) 30 ml Q6H PRN ORAL dyspepsia 07/26/17 17:45 08/25/17 17:44 Atorvastatin Calcium (Lipitor) 20 mg BEDTIME ORAL 07/26/17 21:00 08/25/17 20:59 07/30/17 21:21 Carvedilol (Coreg) 25 mg EVERY 12 HOURS ORAL 07/26/17 21:00 08/25/17 20:59 07/29/17 20:35 Clonidine HCl (Catapres) 0.1 mg Q4H PRN ORAL For High Blood Pressure 07/26/17 17:45 08/25/17 17:44 Dextrose (Dextrose 50%) STAT PRN IV Hypoglycemia 07/26/17 17:45 08/25/17 17:44 Diphenhydramine HCl (Benadryl) 25 mg Q6H PRN ORAL Itching/Pruritis 07/26/17 17:45 08/25/17 17:44 Hydromorphone HCl (Dilaudid) 0.5 mg STAT PRN IVP For Pain 07/26/17 18:45 08/02/17 18:44 Insulin Aspart (NovoLOG) BEFORE MEALS AND HS SUBQ 07/26/17 21:00 08/25/17 20:59 Levothyroxine Sodium (Synthroid) 50 mcg ACBREAKFAST ORAL 07/27/17 06:30 08/26/17 06:29 07/30/17 06:06 Morphine Sulfate (Morphine Sulfate) 2 mg Q4H PRN IVP severe Pain (Pain Scale 7-10) 07/26/17 17:45 08/02/17 17:44 07/28/17 11:23 Nifedipine (Procardia XL) 60 mg DAILY ORAL 07/27/17 09:00 08/26/17 08:59 07/30/17 08:39 Nitroglycerin (Ntg) 0.4 mg Q5M X 3 DOSES PRN SL Prn Chest Pain 07/26/17 17:45 08/25/17 17:44 Ondansetron HCl (Zofran) 4 mg Q6H PRN IVP Nausea & Vomiting 07/26/17 17:45 08/25/17 17:44 07/27/17 20:17 Pantoprazole (Protonix) 40 mg DAILY IVP 07/27/17 10:00 08/26/17 09:59 07/30/17 08:40 Piperacillin Sod/ Tazobactam Sod 3.375 gm/Dextrose 110 ml @ 27.5 mls/hr Q8H IVPB 07/27/17 16:00 08/03/17 15:59 07/30/17 16:26 Polyethylene Glycol (Miralax) 17 gm HSPRN PRN ORAL Constipation 07/26/17 17:45 08/25/17 17:44 Potassium Chloride 40 meq/ Dextrose/Sodium Chloride 1,020 ml @ 75 mls/hr [id number] IV 07/29/17 15:00 08/28/17 14:59 07/30/17 18:20 Temazepam (Restoril) 15 mg HSPRN PRN ORAL Insomnia 07/26/17 17:45 08/02/17 17:44 TONNY BERMUDEZ Jul 30, 2017 21:40
--- NOTE | 2017-07-30 21:41 | Pulmonology Progress Note ---
Assessment/Plan Problems: (1) Diabetes (2) Abdominal pain (3) Bright red blood per rectum (4) Colitis (5) Sepsis Assessment/Plan improving wbc is lower check h/h check cultures symptomatic treatment prbc prn dvt prophylaxis Subjective ROS Limited/Unobtainable: No Constitutional: Reports: no symptoms HEENT: Repors: no symptoms Allergies: Coded Allergies: Horse Serum Proteins (Verified Allergy, Unknown, SWELLING, 04/23/08) Objective Last 24 Hour Vital Signs Date Time Temp Pulse Resp B/P (MAP) Pulse Ox O2 Delivery O2 Flow Rate FiO2 07/30/17 21:00 57 115/50 07/30/17 21:00 98.3 57 18 115/50 96 Nasal Cannula 2.0 07/30/17 16:00 97.5 57 20 113/56 92 Room Air 07/30/17 16:00 53 07/30/17 12:00 55 07/30/17 11:30 97.2 58 20 121/52 96 Nasal Cannula 2.0 07/30/17 09:00 58 108/47 07/30/17 08:39 57 108/47 07/30/17 08:13 97.8 57 20 108/47 92 Nasal Cannula 2.0 07/30/17 08:00 53 07/30/17 04:00 59 07/30/17 04:00 97.7 58 18 110/46 94 Nasal Cannula 2.0 07/30/17 00:00 62 07/29/17 23:48 98.8 59 18 103/53 95 Room Air General Appearance: WD/WN HEENT: normocephalic, atraumatic Respiratory/Chest: chest wall non-tender, lungs clear Cardiovascular: normal peripheral pulses, normal rate Abdomen: normal bowel sounds, soft, non tender Extremities: no clubbing Skin: no rash 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, no motor/sensory deficits Laboratory Tests 07/30/17 06:35: White Blood Count 15.8H, Red Blood Count 4.24, Hemoglobin 13.2, Hematocrit 39.8 , Mean Corpuscular Volume 94, Mean Corpuscular Hemoglobin 31.1H, Mean Corpuscular Hemoglobin Concent 33.2, Red Cell Distribution Width 12.2, Platelet Count 186, Mean Platelet Volume 8.0, Neutrophils (%) (Auto) , Lymphocytes (%) ( Auto) , Monocytes (%) (Auto) , Eosinophils (%) (Auto) , Basophils (%) (Auto) , Differential Total Cells Counted 100, Neutrophils % (Manual) 84H, Lymphocytes % (Manual) 6L, Monocytes % (Manual) 6, Eosinophils % (Manual) 3, Basophils % ( Manual) 1, Band Neutrophils 0, Platelet Estimate Adequate, Platelet Morphology Normal, Red Blood Cell Morphology Normal, Prothrombin Time 10.5, Prothromb Time International Ratio 1.0, Activated Partial Thromboplast Time 29, Sodium Level 140, Potassium Level 3.4, Chloride Level 104, Carbon Dioxide Level 23, Anion Gap 13, Blood Urea Nitrogen 7, Creatinine 1.5#H, Estimat Glomerular Filtration Rate , Glucose Level 160H, Calcium Level 8.1L, Phosphorus Level 1.8L, Magnesium Level 1.7, Total Bilirubin 0.5, Aspartate Amino Transf (AST/SGOT) 17, Alanine Aminotransferase (ALT/SGPT) 10, Alkaline Phosphatase 52, Total Protein 5.4L, Albumin 2.8L, Globulin 2.6, Albumin/Globulin Ratio 1.0 Current Medications Medications (Trade) Dose Ordered Sig/Akbar Route PRN Reason Start Time Stop Time Status Last Admin Dose Admin Acetaminophen (Tylenol) 650 mg Q4H PRN ORAL fever 07/26/17 17:45 08/25/17 17:44 Al Hydroxide/Mg Hydroxide (Mylanta II) 30 ml Q6H PRN ORAL dyspepsia 07/26/17 17:45 08/25/17 17:44 Atorvastatin Calcium (Lipitor) 20 mg BEDTIME ORAL 07/26/17 21:00 08/25/17 20:59 07/30/17 21:21 Carvedilol (Coreg) 25 mg EVERY 12 HOURS ORAL 07/26/17 21:00 08/25/17 20:59 07/29/17 20:35 Clonidine HCl (Catapres) 0.1 mg Q4H PRN ORAL For High Blood Pressure 07/26/17 17:45 08/25/17 17:44 Dextrose (Dextrose 50%) STAT PRN IV Hypoglycemia 07/26/17 17:45 08/25/17 17:44 Diphenhydramine HCl (Benadryl) 25 mg Q6H PRN ORAL Itching/Pruritis 07/26/17 17:45 08/25/17 17:44 Hydromorphone HCl (Dilaudid) 0.5 mg STAT PRN IVP For Pain 07/26/17 18:45 08/02/17 18:44 Insulin Aspart (NovoLOG) BEFORE MEALS AND HS SUBQ 07/26/17 21:00 08/25/17 20:59 Levothyroxine Sodium (Synthroid) 50 mcg ACBREAKFAST ORAL 07/27/17 06:30 08/26/17 06:29 07/30/17 06:06 Morphine Sulfate (Morphine Sulfate) 2 mg Q4H PRN IVP severe Pain (Pain Scale 7-10) 07/26/17 17:45 08/02/17 17:44 07/28/17 11:23 Nifedipine (Procardia XL) 60 mg DAILY ORAL 07/27/17 09:00 08/26/17 08:59 07/30/17 08:39 Nitroglycerin (Ntg) 0.4 mg Q5M X 3 DOSES PRN SL Prn Chest Pain 07/26/17 17:45 08/25/17 17:44 Ondansetron HCl (Zofran) 4 mg Q6H PRN IVP Nausea & Vomiting 07/26/17 17:45 08/25/17 17:44 07/27/17 20:17 Pantoprazole (Protonix) 40 mg DAILY IVP 07/27/17 10:00 08/26/17 09:59 07/30/17 08:40 Piperacillin Sod/ Tazobactam Sod 3.375 gm/Dextrose 110 ml @ 27.5 mls/hr Q8H IVPB 07/27/17 16:00 08/03/17 15:59 07/30/17 16:26 Polyethylene Glycol (Miralax) 17 gm HSPRN PRN ORAL Constipation 07/26/17 17:45 08/25/17 17:44 Potassium Chloride 40 meq/ Dextrose/Sodium Chloride 1,020 ml @ 75 mls/hr [id number] IV 07/29/17 15:00 08/28/17 14:59 07/30/17 18:20 Temazepam (Restoril) 15 mg HSPRN PRN ORAL Insomnia 07/26/17 17:45 08/02/17 17:44 TONNY BERMUDEZ Jul 30, 2017 21:41
[2017-07-31] VITALS: BP 117/53
[2017-07-31] MEDS: Piperacillin/Tazobactam 3.375 GM in D5W 110 ML IVPB SCH ×3 (00:06→16:00)
[2017-07-31 04:00] VITALS: BP 112/54
[2017-07-31] MEDS: Morphine Sulfate 2mg/ml Inj IVP PRN (04:20)
[2017-07-31] MEDS: NovoLOG Insulin Flexpen SUBQ SCH ×4 (06:29→21:00)
[2017-07-31] MEDS ORDERED: Potassium Chloride 40 MEQ in D5 1/2NS 1,000 ML IV SCH (07:00)
[2017-07-31] MEDS ORDERED: Nitroglycerin Subl 0.4mg tab SL PRN (07:00)
[2017-07-31 08:32] VITALS: BP 119/45
--- NOTE | 2017-07-31 08:38 | General Progress Note ---
Progress Note Progress Note afebrile. pain all gone, no N/V. had BM Hungry Abdomen: soft, BS normal , flat, non-tender! no mass Impression Resolving severe left colitis to transverse colon. Full liquids, soft diet tomorrow and home on po abx when ID gives order. ADEN BURTON Jul 31, 2017 08:37
[2017-07-31] MEDS ORDERED: Pantoprazole Inj IVP SCH (09:00)
--- NOTE | 2017-07-31 09:07 | Nephrology Progress Note ---
Assessment/Plan Assessment 1. PRASANNA 2. Dehydration. 3.hypokalemia 4. Hypertension. 5. Diabetes. Plan PLAN to continue ivf monitoring renal function avoid NSAID replace k us of kidney Subjective Subjective alert and wake feeling better c/o being hungry Objective Objective Last 24 Hour Vital Signs Date Time Temp Pulse Resp B/P (MAP) Pulse Ox O2 Delivery O2 Flow Rate FiO2 07/31/17 08:32 97.0 57 20 119/45 95 Nasal Cannula 2.0 07/31/17 04:00 49 07/31/17 04:00 97.0 54 18 112/54 97 Nasal Cannula 2.0 07/31/17 00:00 54 07/31/17 00:00 97.5 58 16 117/53 95 Nasal Cannula 2.0 07/30/17 21:00 57 115/50 07/30/17 21:00 98.3 57 18 115/50 96 Nasal Cannula 2.0 07/30/17 20:00 59 07/30/17 16:00 97.5 57 20 113/56 92 Room Air 07/30/17 16:00 53 07/30/17 12:00 55 07/30/17 11:30 97.2 58 20 121/52 96 Nasal Cannula 2.0 Height (Feet): 5 Height (Inches): 4.00 Weight (Pounds): 150 Objective HEENT : No JVP. No LAD. No thyromegaly. Extraocular movement intact. Pupils are reactive to light and accommodation. LUNGS: Clear to auscultation. CARDIAC: Regular rate and rhythm. S1 and S2. No murmur. No rub. ABDOMEN: Soft, nontender, and nondistended. EXTREMITIES: No edema. No clubbing. No cyanosis. Neurologic: Cranial nerves II through XII within normal limits. Upper and lower extremities are grossly intact. ANITA DOLL Jul 31, 2017 09:07
[2017-07-31 09:12] LABS: BASOPHILS % (AUTO) 0.7 % (0.0-2.0); EOSINOPHILS % (AUTO) 3.8 % (0.0-3.0); MEAN CORPUSCULAR HGB CONC 32.7 G/DL (32.0-36.0); MEAN CORPUSCULAR VOLUME 95 FL (80-99); MEAN PLATELET VOLUME 6.7 FL (6.5-10.1); MONOCYTES % (AUTO) 5.6 % (1.0-10.0); PLATELET COUNT 228 K/UL (150-450); RED BLOOD COUNT 4.14 M/UL (4.20-5.40)
[2017-07-31 09:33] LABS: ANION GAP 13 (5-15); CALCIUM 8.5 mg/dL (8.6-10.2); CARBON DIOXIDE 22 mEQ/L (20-30); CHLORIDE 105 mEQ/L (98-107); CREATININE 2.3 mg/dL (0.5-0.9); HEMOLYSIS 0; POTASSIUM 4.1 mEQ/L (3.4-4.9); SODIUM 140 mEQ/L (135-145)
[2017-07-31] MEDS ORDERED: Morphine Sulfate 2mg/ml Inj IVP PRN (09:45)
--- NOTE | 2017-07-31 10:41 | GI Progress Note ---
Assessment/Plan Problems: (1) Colitis ICD Codes: K52.9 - Noninfective gastroenteritis and colitis, unspecified SNOMED: 25930501 (2) Bright red blood per rectum ICD Codes: K62.5 - Hemorrhage of anus and rectum SNOMED: 835305148 (3) Diabetes ICD Codes: E11.9 - Type 2 diabetes mellitus without complications SNOMED: 47910624 (4) Abdominal pain ICD Codes: R10.9 - Unspecified abdominal pain SNOMED: 05655334 Qualifiers: Qualified Codes: R10.30 - Lower abdominal pain, unspecified Status: stable Status Narrative Discussed with Dr. Montano. Assessment/Plan SUMMARY FINDINGS: 1. Severe colitis, most likely ischemic, status post biopsy. 2. Diverticulosis. 3. Internal hemorrhoids. RECOMMENDATIONS: Followup biopsy results and treat accordingly. Follow with a surgical recommendation. adv to cardiac diet pt will need a full colonoscopy given poor prep >> outpatient PT eval fu labs Subjective Subjective tolerating FLD Objective Last 24 Hour Vital Signs Date Time Temp Pulse Resp B/P (MAP) Pulse Ox O2 Delivery O2 Flow Rate FiO2 07/31/17 08:32 97.0 57 20 119/45 95 Nasal Cannula 2.0 07/31/17 04:00 49 07/31/17 04:00 97.0 54 18 112/54 97 Nasal Cannula 2.0 07/31/17 00:00 54 07/31/17 00:00 97.5 58 16 117/53 95 Nasal Cannula 2.0 07/30/17 21:00 57 115/50 07/30/17 21:00 98.3 57 18 115/50 96 Nasal Cannula 2.0 07/30/17 20:00 59 07/30/17 16:00 97.5 57 20 113/56 92 Room Air 07/30/17 16:00 53 07/30/17 12:00 55 07/30/17 11:30 97.2 58 20 121/52 96 Nasal Cannula 2.0 Laboratory Tests Test 07/31/17 08:55 White Blood Count 15.0 K/UL (4.8-10.8) H Red Blood Count 4.14 M/UL (4.20-5.40) L Hemoglobin 12.8 G/DL (12.0-16.0) Hematocrit 39.1 % (37.0-47.0) Mean Corpuscular Volume 95 FL (80-99) Mean Corpuscular Hemoglobin 31.0 PG (27.0-31.0) Mean Corpuscular Hemoglobin Concent 32.7 G/DL (32.0-36.0) Red Cell Distribution Width 12.0 % (11.6-14.8) Platelet Count 228 K/UL (150-450) Mean Platelet Volume 6.7 FL (6.5-10.1) Neutrophils (%) (Auto) 83.0 % (45.0-75.0) H Lymphocytes (%) (Auto) 7.0 % (20.0-45.0) L Monocytes (%) (Auto) 5.6 % (1.0-10.0) Eosinophils (%) (Auto) 3.8 % (0.0-3.0) H Basophils (%) (Auto) 0.7 % (0.0-2.0) Sodium Level 140 mEQ/L (135-145) Potassium Level 4.1 mEQ/L (3.4-4.9) Chloride Level 105 mEQ/L (98-107) Carbon Dioxide Level 22 mEQ/L (20-30) Anion Gap 13 (5-15) Blood Urea Nitrogen 8 mg/dL (7-23) Creatinine 2.3 mg/dL (0.5-0.9) #H Estimat Glomerular Filtration Rate mL/min (>60) Glucose Level 126 mg/dL (74-106) H Calcium Level 8.5 mg/dL (8.6-10.2) L Height (Feet): 5 Height (Inches): 4.00 Weight (Pounds): 150 General Appearance: no apparent distress, alert Cardiovascular: normal rate Respiratory/Chest: normal breath sounds, no respiratory distress Abdominal Exam: normal bowel sounds, non tender, soft Extremities: normal range of motion Lidya Newell N.P. Jul 31, 2017 10:41
[2017-07-31] MEDS: Carvedilol 25mg Tab ORAL SCH ×2 (11:14→20:28)
[2017-07-31] MEDS ORDERED: Mylanta II UD 30ml ORAL PRN (11:45)
[2017-07-31 12:15] VITALS: BP 117/58
--- NOTE | 2017-07-31 14:18 | General Progress Note ---
Assessment/Plan Problem List: (1) Sepsis ICD Codes: A41.9 - Sepsis, unspecified organism SNOMED: 26500682 (2) Colitis ICD Codes: K52.9 - Noninfective gastroenteritis and colitis, unspecified SNOMED: 78148002 (3) Bright red blood per rectum ICD Codes: K62.5 - Hemorrhage of anus and rectum SNOMED: 722221102 (4) Abdominal pain ICD Codes: R10.9 - Unspecified abdominal pain SNOMED: 87075665 Qualifiers: Qualified Codes: R10.30 - Lower abdominal pain, unspecified (5) Diabetes ICD Codes: E11.9 - Type 2 diabetes mellitus without complications SNOMED: 45038815 (6) Hypothyroidism ICD Codes: E03.9 - Hypothyroidism, unspecified SNOMED: 80738524 (7) Hypertension ICD Codes: I10 - Essential (primary) hypertension SNOMED: 02056037 Status: unchanged Assessment/Plan ot pt diet abx sx f/u cbc bmp am, Subjective Constitutional: Reports: weakness Allergies: Coded Allergies: Horse Serum Proteins (Verified Allergy, Unknown, SWELLING, 04/23/08) Subjective calm in bed sl weak Objective Last 24 Hour Vital Signs Date Time Temp Pulse Resp B/P (MAP) Pulse Ox O2 Delivery O2 Flow Rate FiO2 07/31/17 12:15 97.5 54 20 117/58 100 Nasal Cannula 2.0 07/31/17 11:14 60 122/57 07/31/17 11:13 60 122/57 07/31/17 08:32 97.0 57 20 119/45 95 Nasal Cannula 2.0 07/31/17 04:00 49 07/31/17 04:00 97.0 54 18 112/54 97 Nasal Cannula 2.0 07/31/17 00:00 54 07/31/17 00:00 97.5 58 16 117/53 95 Nasal Cannula 2.0 07/30/17 21:00 57 115/50 07/30/17 21:00 98.3 57 18 115/50 96 Nasal Cannula 2.0 07/30/17 20:00 59 07/30/17 16:00 97.5 57 20 113/56 92 Room Air 07/30/17 16:00 53 Intake and Output 07/31/17 08/01/17 19:00 07:00 Intake Total 520 ml Output Total 450 ml Balance 70 ml Intake Oral 520 ml Output Urine Total 450 ml Laboratory Tests 07/31/17 08:55: White Blood Count 15.0H, Red Blood Count 4.14L, Hemoglobin 12.8, Hematocrit 39.1 , Mean Corpuscular Volume 95, Mean Corpuscular Hemoglobin 31.0, Mean Corpuscular Hemoglobin Concent 32.7, Red Cell Distribution Width 12.0, Platelet Count 228, Mean Platelet Volume 6.7, Neutrophils (%) (Auto) 83.0H, Lymphocytes ( %) (Auto) 7.0L, Monocytes (%) (Auto) 5.6, Eosinophils (%) (Auto) 3.8H, Basophils (%) (Auto) 0.7, Sodium Level 140, Potassium Level 4.1, Chloride Level 105, Carbon Dioxide Level 22, Anion Gap 13, Blood Urea Nitrogen 8, Creatinine 2.3#H, Estimat Glomerular Filtration Rate , Glucose Level 126H, Calcium Level 8.5L Height (Feet): 5 Height (Inches): 4.00 Weight (Pounds): 150 General Appearance: lethargic EENT: normal ENT inspection Neck: normal alignment Cardiovascular: normal peripheral pulses, normal rate, regular rhythm Respiratory/Chest: chest wall non-tender, lungs clear, normal breath sounds Abdomen: normal bowel sounds, non tender, soft Extremities: normal inspection Edema: no edema noted Arm (L), no edema noted Arm (R), no edema noted Leg (L), no edema noted Leg (R), no edema noted Pedal (L), no edema noted Pedal (R), no edema noted Generalized Neurologic: responsive, motor weakness Skin: normal pigmentation, warm/dry INDIRA SALGUERO Jul 31, 2017 14:17
[2017-07-31 16:00] VITALS: BP 120/57
--- NOTE | 2017-07-31 16:21 | Pulmonology Progress Note ---
Assessment/Plan Problems: (1) Diabetes (2) Abdominal pain (3) Bright red blood per rectum (4) Colitis (5) Sepsis Assessment/Plan improving wbc is lower, still elevated check h/h check cultures symptomatic treatment prbc prn dvt prophylaxis pt/ot all notes reviewed Subjective ROS Limited/Unobtainable: No Interval Events: much less pain Constitutional: Reports: no symptoms HEENT: Repors: no symptoms Respiratory: Reports: no symptoms Allergies: Coded Allergies: Horse Serum Proteins (Verified Allergy, Unknown, SWELLING, 04/23/08) Objective Last 24 Hour Vital Signs Date Time Temp Pulse Resp B/P (MAP) Pulse Ox O2 Delivery O2 Flow Rate FiO2 07/31/17 16:00 98.2 56 18 120/57 93 Nasal Cannula 2.0 07/31/17 12:15 97.5 54 20 117/58 100 Nasal Cannula 2.0 07/31/17 11:14 60 122/57 07/31/17 11:13 60 122/57 07/31/17 08:32 97.0 57 20 119/45 95 Nasal Cannula 2.0 07/31/17 04:00 49 07/31/17 04:00 97.0 54 18 112/54 97 Nasal Cannula 2.0 07/31/17 00:00 54 07/31/17 00:00 97.5 58 16 117/53 95 Nasal Cannula 2.0 07/30/17 21:00 57 115/50 07/30/17 21:00 98.3 57 18 115/50 96 Nasal Cannula 2.0 07/30/17 20:00 59 Intake and Output 07/31/17 08/01/17 19:00 07:00 Intake Total 520 ml Output Total 450 ml Balance 70 ml Intake Oral 520 ml Output Urine Total 450 ml General Appearance: WD/WN HEENT: normocephalic, atraumatic Respiratory/Chest: chest wall non-tender, normal breath sounds Cardiovascular: normal peripheral pulses, normal rate Abdomen: normal bowel sounds, soft, non tender Genitourinary: normal external genitalia Skin: no rash Laboratory Tests 07/31/17 08:55: White Blood Count 15.0H, Red Blood Count 4.14L, Hemoglobin 12.8, Hematocrit 39.1 , Mean Corpuscular Volume 95, Mean Corpuscular Hemoglobin 31.0, Mean Corpuscular Hemoglobin Concent 32.7, Red Cell Distribution Width 12.0, Platelet Count 228, Mean Platelet Volume 6.7, Neutrophils (%) (Auto) 83.0H, Lymphocytes ( %) (Auto) 7.0L, Monocytes (%) (Auto) 5.6, Eosinophils (%) (Auto) 3.8H, Basophils (%) (Auto) 0.7, Sodium Level 140, Potassium Level 4.1, Chloride Level 105, Carbon Dioxide Level 22, Anion Gap 13, Blood Urea Nitrogen 8, Creatinine 2.3#H, Estimat Glomerular Filtration Rate , Glucose Level 126H, Calcium Level 8.5L Current Medications Medications (Trade) Dose Ordered Sig/Akbar Route PRN Reason Start Time Stop Time Status Last Admin Dose Admin Acetaminophen (Tylenol) 650 mg Q4H PRN ORAL fever 07/31/17 09:45 08/25/17 17:44 Al Hydroxide/Mg Hydroxide (Mylanta II) 30 ml Q6H PRN ORAL dyspepsia 07/31/17 11:45 08/25/17 17:44 Atorvastatin Calcium (Lipitor) 20 mg BEDTIME ORAL 07/31/17 21:00 08/25/17 20:59 Carvedilol (Coreg) 25 mg EVERY 12 HOURS ORAL 07/31/17 09:00 08/25/17 20:59 07/31/17 11:14 Clonidine HCl (Catapres) 0.1 mg Q4H PRN ORAL For High Blood Pressure 07/31/17 09:45 08/25/17 17:44 Dextrose (Dextrose 50%) STAT PRN IV Hypoglycemia 07/31/17 17:45 08/25/17 17:44 Diphenhydramine HCl (Benadryl) 25 mg Q6H PRN ORAL Itching/Pruritis 07/31/17 11:45 08/25/17 17:44 Hydromorphone HCl (Dilaudid) 0.5 mg STAT PRN IVP For Pain 07/31/17 18:45 08/02/17 18:44 Insulin Aspart (NovoLOG) BEFORE MEALS AND HS SUBQ 07/31/17 11:30 08/25/17 20:59 Levothyroxine Sodium (Synthroid) 50 mcg ACBREAKFAST ORAL 08/01/17 06:30 08/26/17 06:29 Metformin HCl (Glucophage) 500 mg BID ORAL 07/31/17 16:30 08/30/17 16:29 UNV Morphine Sulfate (Morphine Sulfate) 2 mg Q4H PRN IVP severe Pain (Pain Scale 7-10) 07/31/17 09:45 08/02/17 17:44 Nifedipine (Procardia XL) 60 mg DAILY ORAL 07/31/17 09:00 08/26/17 08:59 07/31/17 11:13 Nitroglycerin (Ntg) 0.4 mg Q5M X 3 DOSES PRN SL Prn Chest Pain 07/31/17 07:00 08/25/17 17:44 Pantoprazole (Protonix) 40 mg ACBREAKFAST ORAL 08/01/17 06:30 08/31/17 06:29 Piperacillin Sod/ Tazobactam Sod 3.375 gm/Dextrose 110 ml @ 27.5 mls/hr Q8H IVPB 07/31/17 08:00 08/07/17 07:59 07/31/17 09:12 Polyethylene Glycol (Miralax) 17 gm HSPRN PRN ORAL Constipation 07/31/17 17:45 08/25/17 17:44 Temazepam (Restoril) 15 mg HSPRN PRN ORAL Insomnia 07/31/17 17:45 08/02/17 17:44 TONNY BERMUDEZ Jul 31, 2017 16:21
[2017-07-31] MEDS ORDERED: metFORMIN 500mg tab ORAL SCH (16:30)
--- NOTE | 2017-07-31 17:41 | Infectious Diseases Prog Note ---
Assessment/Plan Problems: (1) Sepsis Assessment & Plan: source suspect GI tract , improving on zosyn , will switch to oral levaquin and metronidazol , blood culture is negative so far (2) Bright red blood per rectum Assessment & Plan: due to ischemic colitis , await stool for C diff is negative , monitor H/H, transfuse blood as needed , general surgery is following (3) Abdominal pain Assessment & Plan: due to the above, continue Pain management (4) Colitis Assessment & Plan: suspect ischemic, continue conservative management , further recommendations as per surgery Subjective Constitutional: Reports: no symptoms HEENT: Reports: no symptoms Respiratory: Reports: no symptoms Breasts: Reports: no symptoms Cardiovascular: Reports: no symptoms Gastrointestinal/Abdominal: Reports: diarrhea, bloating Genitourinary: Reports: no symptoms Neurologic: Reports: no symptoms Psychiatric: Reports: no symptoms Skin: Reports: no symptoms Allergies: Coded Allergies: Horse Serum Proteins (Verified Allergy, Unknown, SWELLING, 04/23/08) Objective Vital Signs Last 24 Hour Vital Signs Date Time Temp Pulse Resp B/P (MAP) Pulse Ox O2 Delivery O2 Flow Rate FiO2 07/31/17 16:00 98.2 56 18 120/57 93 Nasal Cannula 2.0 07/31/17 12:15 97.5 54 20 117/58 100 Nasal Cannula 2.0 07/31/17 11:14 60 122/57 07/31/17 11:13 60 122/57 07/31/17 08:32 97.0 57 20 119/45 95 Nasal Cannula 2.0 07/31/17 04:00 49 07/31/17 04:00 97.0 54 18 112/54 97 Nasal Cannula 2.0 07/31/17 00:00 54 07/31/17 00:00 97.5 58 16 117/53 95 Nasal Cannula 2.0 07/30/17 21:00 57 115/50 07/30/17 21:00 98.3 57 18 115/50 96 Nasal Cannula 2.0 07/30/17 20:00 59 Height (Feet): 5 Height (Inches): 4.00 Weight (Pounds): 150 General Appearance: WD/WN, no acute distress HEENT: normocephalic, atraumatic, anicteric, mucous membranes moist Respiratory/Chest: chest wall non-tender, lungs clear, normal breath sounds, no respiratory distress Cardiovascular: normal peripheral pulses, normal rate, regular rhythm, no gallop/murmur Abdomen: normal bowel sounds, soft, non tender, no organomegaly, non distended , no mass, no scars Extremities: no cyanosis, no clubbing Skin: no rash, no lesions, no ulcers Laboratory Tests Test 07/31/17 08:55 White Blood Count 15.0 K/UL (4.8-10.8) H Red Blood Count 4.14 M/UL (4.20-5.40) L Hemoglobin 12.8 G/DL (12.0-16.0) Hematocrit 39.1 % (37.0-47.0) Mean Corpuscular Volume 95 FL (80-99) Mean Corpuscular Hemoglobin 31.0 PG (27.0-31.0) Mean Corpuscular Hemoglobin Concent 32.7 G/DL (32.0-36.0) Red Cell Distribution Width 12.0 % (11.6-14.8) Platelet Count 228 K/UL (150-450) Mean Platelet Volume 6.7 FL (6.5-10.1) Neutrophils (%) (Auto) 83.0 % (45.0-75.0) H Lymphocytes (%) (Auto) 7.0 % (20.0-45.0) L Monocytes (%) (Auto) 5.6 % (1.0-10.0) Eosinophils (%) (Auto) 3.8 % (0.0-3.0) H Basophils (%) (Auto) 0.7 % (0.0-2.0) Sodium Level 140 mEQ/L (135-145) Potassium Level 4.1 mEQ/L (3.4-4.9) Chloride Level 105 mEQ/L (98-107) Carbon Dioxide Level 22 mEQ/L (20-30) Anion Gap 13 (5-15) Blood Urea Nitrogen 8 mg/dL (7-23) Creatinine 2.3 mg/dL (0.5-0.9) #H Estimat Glomerular Filtration Rate mL/min (>60) Glucose Level 126 mg/dL (74-106) H Calcium Level 8.5 mg/dL (8.6-10.2) L Current Medications Medications (Trade) Dose Ordered Sig/Akbar Route PRN Reason Start Time Stop Time Status Last Admin Dose Admin Acetaminophen (Tylenol) 650 mg Q4H PRN ORAL fever 07/31/17 09:45 08/25/17 17:44 Al Hydroxide/Mg Hydroxide (Mylanta II) 30 ml Q6H PRN ORAL dyspepsia 07/31/17 11:45 08/25/17 17:44 Atorvastatin Calcium (Lipitor) 20 mg BEDTIME ORAL 07/31/17 21:00 08/25/17 20:59 Carvedilol (Coreg) 25 mg EVERY 12 HOURS ORAL 07/31/17 09:00 08/25/17 20:59 07/31/17 11:14 Clonidine HCl (Catapres) 0.1 mg Q4H PRN ORAL For High Blood Pressure 07/31/17 09:45 08/25/17 17:44 Dextrose (Dextrose 50%) STAT PRN IV Hypoglycemia 07/31/17 17:45 08/25/17 17:44 Diphenhydramine HCl (Benadryl) 25 mg Q6H PRN ORAL Itching/Pruritis 07/31/17 11:45 08/25/17 17:44 Hydromorphone HCl (Dilaudid) 0.5 mg STAT PRN IVP For Pain 07/31/17 18:45 08/02/17 18:44 Insulin Aspart (NovoLOG) BEFORE MEALS AND HS SUBQ 07/31/17 11:30 08/25/17 20:59 Levothyroxine Sodium (Synthroid) 50 mcg ACBREAKFAST ORAL 08/01/17 06:30 08/26/17 06:29 Metformin HCl (Glucophage) 500 mg BID ORAL 07/31/17 16:30 08/30/17 16:29 UNV Morphine Sulfate (Morphine Sulfate) 2 mg Q4H PRN IVP severe Pain (Pain Scale 7-10) 07/31/17 09:45 08/02/17 17:44 Nifedipine (Procardia XL) 60 mg DAILY ORAL 07/31/17 09:00 08/26/17 08:59 07/31/17 11:13 Nitroglycerin (Ntg) 0.4 mg Q5M X 3 DOSES PRN SL Prn Chest Pain 07/31/17 07:00 08/25/17 17:44 Pantoprazole (Protonix) 40 mg ACBREAKFAST ORAL 9/27/17 17:30 08/30/17 17:29 07/31/17 17:20 Piperacillin Sod/ Tazobactam Sod 3.375 gm/Dextrose 110 ml @ 27.5 mls/hr Q8H IVPB 07/31/17 08:00 08/07/17 07:59 07/31/17 09:12 Polyethylene Glycol (Miralax) 17 gm HSPRN PRN ORAL Constipation 07/31/17 17:45 08/25/17 17:44 Temazepam (Restoril) 15 mg HSPRN PRN ORAL Insomnia 07/31/17 17:45 08/02/17 17:44 Boone Carlin M.D. Jul 31, 2017 17:40
[2017-07-31] MEDS ORDERED: Miralax 17gm pkt ORAL PRN (17:45)
[2017-07-31] MEDS ORDERED: HYDROmorphone 1mg/ml Carpuject IVP PRN (18:45)
[2017-07-31 20:00] VITALS: BP 110/48
[2017-07-31] MEDS ORDERED: Levofloxacin 500mg tab ORAL ONE (20:00)
[2017-07-31] MEDS: metroNIDAZOLE 500mg tab ORAL SCH (21:33)
[2017-08-01] VITALS (7 sets, daily range): BP systolic 109–139; BP diastolic 46–64
[2017-08-01] MEDS: metroNIDAZOLE 500mg tab ORAL SCH ×3 (05:53→22:20)
[2017-08-01] MEDS: NovoLOG Insulin Flexpen SUBQ SCH ×4 (06:05→21:00)
[2017-08-01 07:18] LABS: BASOPHILS % (AUTO) 0.7 % (0.0-2.0); EOSINOPHILS % (AUTO) 3.8 % (0.0-3.0); MEAN CORPUSCULAR HEMOGLOBIN 30.9 PG (27.0-31.0); MEAN CORPUSCULAR HGB CONC 32.5 G/DL (32.0-36.0); MEAN CORPUSCULAR VOLUME 95 FL (80-99); MEAN PLATELET VOLUME 7.3 FL (6.5-10.1); MONOCYTES % (AUTO) 7.3 % (1.0-10.0); NEUTROPHILS % (AUTO) 81.2 % (45.0-75.0); PLATELET COUNT 219 K/UL (150-450); RED BLOOD COUNT 4.03 M/UL (4.20-5.40); RED CELL DISTRIBUTION WIDTH 12.3 % (11.6-14.8); WHITE BLOOD COUNT 13.7 K/UL (4.8-10.8)
[2017-08-01 07:30] LABS: ANION GAP 13 (5-15); CALCIUM 8.7 mg/dL (8.6-10.2); CARBON DIOXIDE 24 mEQ/L (20-30); CHLORIDE 103 mEQ/L (98-107); CREATININE 2.5 mg/dL (0.5-0.9); HEMOLYSIS 2; POTASSIUM 4.5 mEQ/L (3.4-4.9); SODIUM 140 mEQ/L (135-145)
[2017-08-01] MEDS: Carvedilol 25mg Tab ORAL SCH ×2 (09:03→21:06)
--- NOTE | 2017-08-01 09:45 | General Progress Note ---
Progress Note Progress Note Surgery: doing well. no complaints. wants to go home today. afebrile HD stable, exam benign okay to d/c from surgical standpoint José Fuentes Aug 01, 2017 09:45
--- NOTE | 2017-08-01 10:15 | Nephrology Progress Note ---
Assessment/Plan Assessment 1. PRASANNA 2. Dehydration. 3.hypokalemia 4. Hypertension. 5. Diabetes. Plan PLAN to continue ivf monitoring renal function avoid NSAID replace k us of kidney Subjective Subjective alert and wake feeling better c/o being hungry Objective Objective Last 24 Hour Vital Signs Date Time Temp Pulse Resp B/P (MAP) Pulse Ox O2 Delivery O2 Flow Rate FiO2 08/01/17 09:05 60 122/54 08/01/17 09:03 60 122/54 08/01/17 08:41 60 122/54 08/01/17 08:29 97.5 57 20 110/48 96 Nasal Cannula 2.0 08/01/17 04:00 98.1 53 20 120/56 94 Nasal Cannula 2.0 08/01/17 00:00 97.5 51 19 118/46 92 Nasal Cannula 2.0 07/31/17 20:28 59 108/50 07/31/17 20:00 98.4 57 19 110/48 91 Room Air 07/31/17 16:00 98.2 56 18 120/57 93 Nasal Cannula 2.0 07/31/17 12:15 97.5 54 20 117/58 100 Nasal Cannula 2.0 07/31/17 11:14 60 122/57 07/31/17 11:13 60 122/57 Laboratory Tests 08/01/17 06:05: White Blood Count 13.7H, Red Blood Count 4.03L, Hemoglobin 12.4, Hematocrit 38.2 , Mean Corpuscular Volume 95, Mean Corpuscular Hemoglobin 30.9, Mean Corpuscular Hemoglobin Concent 32.5, Red Cell Distribution Width 12.3, Platelet Count 219, Mean Platelet Volume 7.3, Neutrophils (%) (Auto) 81.2H, Lymphocytes ( %) (Auto) 7.0L, Monocytes (%) (Auto) 7.3, Eosinophils (%) (Auto) 3.8H, Basophils (%) (Auto) 0.7, Sodium Level 140, Potassium Level 4.5, Chloride Level 103, Carbon Dioxide Level 24, Anion Gap 13, Blood Urea Nitrogen 12, Creatinine 2.5H, Estimat Glomerular Filtration Rate , Glucose Level 114H, Calcium Level 8.7 Height (Feet): 5 Height (Inches): 4.00 Weight (Pounds): 150 Objective HEENT : No JVP. No LAD. No thyromegaly. Extraocular movement intact. Pupils are reactive to light and accommodation. LUNGS: Clear to auscultation. CARDIAC: Regular rate and rhythm. S1 and S2. No murmur. No rub. ABDOMEN: Soft, nontender, and nondistended. EXTREMITIES: No edema. No clubbing. No cyanosis. Neurologic: Cranial nerves II through XII within normal limits. Upper and lower extremities are grossly intact. ANITA DOLL Aug 01, 2017 10:15
--- NOTE | 2017-08-01 11:14 | GI Progress Note ---
Assessment/Plan Problems: (1) Colitis ICD Codes: K52.9 - Noninfective gastroenteritis and colitis, unspecified SNOMED: 38052982 (2) Bright red blood per rectum ICD Codes: K62.5 - Hemorrhage of anus and rectum SNOMED: 340088046 (3) Diabetes ICD Codes: E11.9 - Type 2 diabetes mellitus without complications SNOMED: 82140741 (4) Abdominal pain ICD Codes: R10.9 - Unspecified abdominal pain SNOMED: 29607091 Qualifiers: Qualified Codes: R10.30 - Lower abdominal pain, unspecified Status: doing well, stable Status Narrative Discussed with Dr. Montano. Assessment/Plan SUMMARY FINDINGS: 1. Severe colitis, most likely ischemic, status post biopsy. 2. Diverticulosis 3. Internal hemorrhoids RECOMMENDATIONS: ok for DC per GI standpoint Followup biopsy results and treat accordingly >> bx mucosal necrosis, see full pathology report. Follow with a surgical recommendation. adv to cardiac diet, tolerating pt will need a full colonoscopy given poor prep >> will contact as outpatient PT eval fu labs The patient was seen and examined at bedside and all new and available data was reviewed in the patients chart. I agree with the above findings, impression and plan. (Patient seen earlier today. Signature stamp does not reflect patient encounter time.). -Ferdinand Montano MD Subjective Subjective tolerating cardiac diet Objective Last 24 Hour Vital Signs Date Time Temp Pulse Resp B/P (MAP) Pulse Ox O2 Delivery O2 Flow Rate FiO2 08/01/17 09:05 60 122/54 08/01/17 09:03 60 122/54 08/01/17 08:41 60 122/54 08/01/17 08:29 97.5 57 20 110/48 96 Nasal Cannula 2.0 08/01/17 04:00 98.1 53 20 120/56 94 Nasal Cannula 2.0 08/01/17 00:00 97.5 51 19 118/46 92 Nasal Cannula 2.0 07/31/17 20:28 59 108/50 07/31/17 20:00 98.4 57 19 110/48 91 Room Air 07/31/17 16:00 98.2 56 18 120/57 93 Nasal Cannula 2.0 07/31/17 12:15 97.5 54 20 117/58 100 Nasal Cannula 2.0 07/31/17 11:14 60 122/57 9/27/17 11:13 60 122/57 Laboratory Tests Test 08/01/17 06:05 White Blood Count 13.7 K/UL (4.8-10.8) H Red Blood Count 4.03 M/UL (4.20-5.40) L Hemoglobin 12.4 G/DL (12.0-16.0) Hematocrit 38.2 % (37.0-47.0) Mean Corpuscular Volume 95 FL (80-99) Mean Corpuscular Hemoglobin 30.9 PG (27.0-31.0) Mean Corpuscular Hemoglobin Concent 32.5 G/DL (32.0-36.0) Red Cell Distribution Width 12.3 % (11.6-14.8) Platelet Count 219 K/UL (150-450) Mean Platelet Volume 7.3 FL (6.5-10.1) Neutrophils (%) (Auto) 81.2 % (45.0-75.0) H Lymphocytes (%) (Auto) 7.0 % (20.0-45.0) L Monocytes (%) (Auto) 7.3 % (1.0-10.0) Eosinophils (%) (Auto) 3.8 % (0.0-3.0) H Basophils (%) (Auto) 0.7 % (0.0-2.0) Sodium Level 140 mEQ/L (135-145) Potassium Level 4.5 mEQ/L (3.4-4.9) Chloride Level 103 mEQ/L (98-107) Carbon Dioxide Level 24 mEQ/L (20-30) Anion Gap 13 (5-15) Blood Urea Nitrogen 12 mg/dL (7-23) Creatinine 2.5 mg/dL (0.5-0.9) H Estimat Glomerular Filtration Rate mL/min (>60) Glucose Level 114 mg/dL (74-106) H Calcium Level 8.7 mg/dL (8.6-10.2) Height (Feet): 5 Height (Inches): 4.00 Weight (Pounds): 150 General Appearance: no apparent distress, alert Cardiovascular: normal rate Respiratory/Chest: normal breath sounds, no respiratory distress Abdominal Exam: normal bowel sounds, non tender, soft Extremities: normal range of motion Lidya Newell N.PTony Aug 01, 2017 11:14 FERDINAND MONTANO Aug 08, 2017 14:37
--- NOTE | 2017-08-01 13:08 | General Progress Note ---
Assessment/Plan Problem List: (1) Sepsis ICD Codes: A41.9 - Sepsis, unspecified organism SNOMED: 76376580 (2) Colitis ICD Codes: K52.9 - Noninfective gastroenteritis and colitis, unspecified SNOMED: 21860476 (3) Bright red blood per rectum ICD Codes: K62.5 - Hemorrhage of anus and rectum SNOMED: 589321315 (4) Abdominal pain ICD Codes: R10.9 - Unspecified abdominal pain SNOMED: 54390072 Qualifiers: Qualified Codes: R10.30 - Lower abdominal pain, unspecified (5) Diabetes ICD Codes: E11.9 - Type 2 diabetes mellitus without complications SNOMED: 02971269 (6) Hypothyroidism ICD Codes: E03.9 - Hypothyroidism, unspecified SNOMED: 69404736 (7) Hypertension ICD Codes: I10 - Essential (primary) hypertension SNOMED: 59850798 Status: stable, progressing, tolerating diet Assessment/Plan ot pt diet abx sx f/u cbc bmp am,promise ltach eval Subjective Constitutional: Reports: weakness Allergies: Coded Allergies: Horse Serum Proteins (Verified Allergy, Unknown, SWELLING, 04/23/08) All Systems: reviewed and negative except above Subjective calm in bed sl weak Objective Last 24 Hour Vital Signs Date Time Temp Pulse Resp B/P (MAP) Pulse Ox O2 Delivery O2 Flow Rate FiO2 08/01/17 11:35 97.8 54 19 109/50 96 Nasal Cannula 2.0 08/01/17 09:05 60 122/54 08/01/17 09:03 60 122/54 08/01/17 08:41 60 122/54 08/01/17 08:29 97.5 57 20 110/48 96 Nasal Cannula 2.0 08/01/17 04:00 98.1 53 20 120/56 94 Nasal Cannula 2.0 08/01/17 00:00 97.5 51 19 118/46 92 Nasal Cannula 2.0 07/31/17 20:28 59 108/50 07/31/17 20:00 98.4 57 19 110/48 91 Room Air 07/31/17 16:00 98.2 56 18 120/57 93 Nasal Cannula 2.0 Laboratory Tests 08/01/17 06:05: White Blood Count 13.7H, Red Blood Count 4.03L, Hemoglobin 12.4, Hematocrit 38.2 , Mean Corpuscular Volume 95, Mean Corpuscular Hemoglobin 30.9, Mean Corpuscular Hemoglobin Concent 32.5, Red Cell Distribution Width 12.3, Platelet Count 219, Mean Platelet Volume 7.3, Neutrophils (%) (Auto) 81.2H, Lymphocytes ( %) (Auto) 7.0L, Monocytes (%) (Auto) 7.3, Eosinophils (%) (Auto) 3.8H, Basophils (%) (Auto) 0.7, Sodium Level 140, Potassium Level 4.5, Chloride Level 103, Carbon Dioxide Level 24, Anion Gap 13, Blood Urea Nitrogen 12, Creatinine 2.5H, Estimat Glomerular Filtration Rate , Glucose Level 114H, Calcium Level 8.7 Height (Feet): 5 Height (Inches): 4.00 Weight (Pounds): 150 General Appearance: lethargic EENT: normal ENT inspection Neck: normal alignment Cardiovascular: normal peripheral pulses, normal rate, regular rhythm Respiratory/Chest: chest wall non-tender, lungs clear, normal breath sounds Abdomen: normal bowel sounds, non tender, soft Extremities: normal inspection Edema: no edema noted Arm (L), no edema noted Arm (R), no edema noted Leg (L), no edema noted Leg (R), no edema noted Pedal (L), no edema noted Pedal (R), no edema noted Generalized Neurologic: responsive, motor weakness Skin: normal pigmentation, warm/dry INDIRA SALGUERO Aug 01, 2017 13:08
--- NOTE | 2017-08-01 13:14 | Diagnostic Imaging Report ---
Indication: RENAL-A abnormal renal function test, hypertension, diabetes Technique: Grayscale and duplex images of the kidneys, retroperitoneum, and bladder were obtained. Comparison:Reference made to CT abdomen and pelvis 07/26/2017 Findings: Right kidney measures 11.3 cm in length. Left kidney measures 11.1 cm in length. Both kidneys demonstrate normal echogenicity. No hydronephrosis. No focal abnormality. Normal inferior vena cava. Bladder is normal. Impression: negative.
--- NOTE | 2017-08-01 14:44 | Pulmonology Progress Note ---
Assessment/Plan Problems: (1) Diabetes (2) Abdominal pain (3) Bright red blood per rectum (4) Colitis (5) Sepsis Assessment/Plan improving wbc is lower, still elevated check h/h symptomatic treatment prbc prn dvt prophylaxis pt/ot all notes reviewed dc planning Subjective ROS Limited/Unobtainable: No Constitutional: Reports: no symptoms HEENT: Repors: no symptoms Respiratory: Reports: no symptoms Allergies: Coded Allergies: Horse Serum Proteins (Verified Allergy, Unknown, SWELLING, 04/23/08) Objective Last 24 Hour Vital Signs Date Time Temp Pulse Resp B/P (MAP) Pulse Ox O2 Delivery O2 Flow Rate FiO2 08/01/17 11:35 97.8 54 19 109/50 96 Nasal Cannula 2.0 08/01/17 09:05 60 122/54 08/01/17 09:03 60 122/54 08/01/17 08:41 60 122/54 08/01/17 08:29 97.5 57 20 110/48 96 Nasal Cannula 2.0 08/01/17 04:00 98.1 53 20 120/56 94 Nasal Cannula 2.0 08/01/17 00:00 97.5 51 19 118/46 92 Nasal Cannula 2.0 07/31/17 20:28 59 108/50 07/31/17 20:00 98.4 57 19 110/48 91 Room Air 07/31/17 16:00 98.2 56 18 120/57 93 Nasal Cannula 2.0 Intake and Output 08/01/17 08/02/17 19:00 07:00 Intake Total 450 ml Output Total 500 ml Balance -50 ml Intake Oral 450 ml Output Urine Total 500 ml General Appearance: WD/WN HEENT: normocephalic, atraumatic Respiratory/Chest: chest wall non-tender, lungs clear Breasts: no masses Cardiovascular: normal peripheral pulses Abdomen: normal bowel sounds, soft, non tender Genitourinary: normal external genitalia Extremities: no cyanosis, no clubbing Skin: no rash 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 grossly normal, 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 Laboratory Tests 08/01/17 06:05: White Blood Count 13.7H, Red Blood Count 4.03L, Hemoglobin 12.4, Hematocrit 38.2 , Mean Corpuscular Volume 95, Mean Corpuscular Hemoglobin 30.9, Mean Corpuscular Hemoglobin Concent 32.5, Red Cell Distribution Width 12.3, Platelet Count 219, Mean Platelet Volume 7.3, Neutrophils (%) (Auto) 81.2H, Lymphocytes ( %) (Auto) 7.0L, Monocytes (%) (Auto) 7.3, Eosinophils (%) (Auto) 3.8H, Basophils (%) (Auto) 0.7, Sodium Level 140, Potassium Level 4.5, Chloride Level 103, Carbon Dioxide Level 24, Anion Gap 13, Blood Urea Nitrogen 12, Creatinine 2.5H, Estimat Glomerular Filtration Rate , Glucose Level 114H, Calcium Level 8.7 Current Medications Medications (Trade) Dose Ordered Sig/Akbar Route PRN Reason Start Time Stop Time Status Last Admin Dose Admin Acetaminophen (Tylenol) 650 mg Q4H PRN ORAL fever 07/31/17 09:45 08/25/17 17:44 08/01/17 04:07 Al Hydroxide/Mg Hydroxide (Mylanta II) 30 ml Q6H PRN ORAL dyspepsia 07/31/17 11:45 08/25/17 17:44 Atorvastatin Calcium (Lipitor) 20 mg BEDTIME ORAL 07/31/17 21:00 08/25/17 20:59 07/31/17 20:26 Carvedilol (Coreg) 25 mg EVERY 12 HOURS ORAL 07/31/17 09:00 08/25/17 20:59 08/01/17 09:03 Clonidine HCl (Catapres) 0.1 mg Q4H PRN ORAL For High Blood Pressure 07/31/17 09:45 08/25/17 17:44 Dextrose (Dextrose 50%) STAT PRN IV Hypoglycemia 07/31/17 17:45 08/25/17 17:44 Diphenhydramine HCl (Benadryl) 25 mg Q6H PRN ORAL Itching/Pruritis 07/31/17 11:45 08/25/17 17:44 Hydromorphone HCl (Dilaudid) 0.5 mg STAT PRN IVP For Pain 07/31/17 18:45 08/02/17 18:44 Insulin Aspart (NovoLOG) BEFORE MEALS AND HS SUBQ 07/31/17 11:30 08/25/17 20:59 Levofloxacin (Levaquin) 250 mg QOD ORAL 08/03/17 09:00 08/08/17 08:59 Levothyroxine Sodium (Synthroid) 50 mcg ACBREAKFAST ORAL 08/01/17 06:30 08/26/17 06:29 08/01/17 05:53 Metronidazole (Flagyl) 500 mg Q8HR ORAL 07/31/17 22:00 08/07/17 21:59 08/01/17 05:53 Morphine Sulfate (Morphine Sulfate) 2 mg Q4H PRN IVP severe Pain (Pain Scale 7-10) 07/31/17 09:45 08/02/17 17:44 Nifedipine (Procardia XL) 60 mg DAILY ORAL 07/31/17 09:00 08/26/17 08:59 08/01/17 09:05 Nitroglycerin (Ntg) 0.4 mg Q5M X 3 DOSES PRN SL Prn Chest Pain 07/31/17 07:00 08/25/17 17:44 Pantoprazole (Protonix) 40 mg ACBREAKFAST ORAL 07/31/17 17:30 08/30/17 17:29 08/01/17 05:53 Polyethylene Glycol (Miralax) 17 gm HSPRN PRN ORAL Constipation 07/31/17 17:45 08/25/17 17:44 Temazepam (Restoril) 15 mg HSPRN PRN ORAL Insomnia 07/31/17 17:45 08/02/17 17:44 TONNY BERMUDEZ Aug 01, 2017 14:44
[2017-08-01 18:43] LABS: CREATININE, RANDOM URINE 71.6 mg/dL
--- NOTE | 2017-08-01 18:54 | Infectious Diseases Prog Note ---
Assessment/Plan Problems: (1) Sepsis Assessment & Plan: due to ischemic colitis , improving on oral levaquin and metronidazol , blood culture is negative so far (2) Bright red blood per rectum Assessment & Plan: due to ischemic colitis , stool for C diff was not done , already on metronidazol ,monitor H/H, transfuse blood as needed , general surgery is following (3) Abdominal pain Assessment & Plan: resolved, due to the above (4) Colitis Assessment & Plan: suspect ischemic, continue conservative management , further recommendations as per surgery Subjective Constitutional: Reports: no symptoms HEENT: Reports: no symptoms Respiratory: Reports: no symptoms Breasts: Reports: no symptoms Cardiovascular: Reports: no symptoms Gastrointestinal/Abdominal: Reports: no symptoms Genitourinary: Reports: no symptoms Neurologic: Reports: no symptoms Psychiatric: Reports: no symptoms Skin: Reports: no symptoms Endocrine: Reports: no symptoms Hematologic: Reports: no symptoms Allergies: Coded Allergies: Horse Serum Proteins (Verified Allergy, Unknown, SWELLING, 04/23/08) Objective Vital Signs Last 24 Hour Vital Signs Date Time Temp Pulse Resp B/P (MAP) Pulse Ox O2 Delivery O2 Flow Rate FiO2 08/01/17 11:35 97.8 54 19 109/50 96 Nasal Cannula 2.0 08/01/17 09:05 60 122/54 08/01/17 09:03 60 122/54 08/01/17 08:41 60 122/54 08/01/17 08:29 97.5 57 20 110/48 96 Nasal Cannula 2.0 08/01/17 04:00 98.1 53 20 120/56 94 Nasal Cannula 2.0 08/01/17 00:00 97.5 51 19 118/46 92 Nasal Cannula 2.0 07/31/17 20:28 59 108/50 07/31/17 20:00 98.4 57 19 110/48 91 Room Air Height (Feet): 5 Height (Inches): 4.00 Weight (Pounds): 150 General Appearance: WD/WN, no acute distress HEENT: normocephalic, atraumatic, anicteric, mucous membranes moist, PERRL Respiratory/Chest: chest wall non-tender, lungs clear, normal breath sounds, no respiratory distress, no accessory muscle use Cardiovascular: normal peripheral pulses, normal rate, regular rhythm, no gallop/murmur, no JVD Abdomen: normal bowel sounds, soft, non tender, no organomegaly, non distended , no mass, no scars Extremities: no cyanosis, no clubbing Skin: no rash, no lesions, no ulcers Neurologic/Psychiatric: alert, oriented x 3 Laboratory Tests Test 08/01/17 06:05 08/01/17 18:00 White Blood Count 13.7 K/UL (4.8-10.8) H Red Blood Count 4.03 M/UL (4.20-5.40) L Hemoglobin 12.4 G/DL (12.0-16.0) Hematocrit 38.2 % (37.0-47.0) Mean Corpuscular Volume 95 FL (80-99) Mean Corpuscular Hemoglobin 30.9 PG (27.0-31.0) Mean Corpuscular Hemoglobin Concent 32.5 G/DL (32.0-36.0) Red Cell Distribution Width 12.3 % (11.6-14.8) Platelet Count 219 K/UL (150-450) Mean Platelet Volume 7.3 FL (6.5-10.1) Neutrophils (%) (Auto) 81.2 % (45.0-75.0) H Lymphocytes (%) (Auto) 7.0 % (20.0-45.0) L Monocytes (%) (Auto) 7.3 % (1.0-10.0) Eosinophils (%) (Auto) 3.8 % (0.0-3.0) H Basophils (%) (Auto) 0.7 % (0.0-2.0) Sodium Level 140 mEQ/L (135-145) Potassium Level 4.5 mEQ/L (3.4-4.9) Chloride Level 103 mEQ/L (98-107) Carbon Dioxide Level 24 mEQ/L (20-30) Anion Gap 13 (5-15) Blood Urea Nitrogen 12 mg/dL (7-23) Creatinine 2.5 mg/dL (0.5-0.9) H Estimat Glomerular Filtration Rate mL/min (>60) Glucose Level 114 mg/dL (74-106) H Calcium Level 8.7 mg/dL (8.6-10.2) Urine Eosinophils Pending Urine Random Creatinine Pending Urine Random Microalbumin Pending Urine Random Total Protein 12 mg/dL Urine Random Sodium 10 mmol/L Urine Creatinine 71.6 mg/dL Urine Microalbumin/Creatinine Ratio Pending Current Medications Medications (Trade) Dose Ordered Sig/Akbar Route PRN Reason Start Time Stop Time Status Last Admin Dose Admin Acetaminophen (Tylenol) 650 mg Q4H PRN ORAL fever 07/31/17 09:45 08/25/17 17:44 08/01/17 04:07 Al Hydroxide/Mg Hydroxide (Mylanta II) 30 ml Q6H PRN ORAL dyspepsia 07/31/17 11:45 08/25/17 17:44 Atorvastatin Calcium (Lipitor) 20 mg BEDTIME ORAL 07/31/17 21:00 08/25/17 20:59 07/31/17 20:26 Carvedilol (Coreg) 25 mg EVERY 12 HOURS ORAL 07/31/17 09:00 08/25/17 20:59 08/01/17 09:03 Clonidine HCl (Catapres) 0.1 mg Q4H PRN ORAL For High Blood Pressure 07/31/17 09:45 08/25/17 17:44 Dextrose (Dextrose 50%) STAT PRN IV Hypoglycemia 07/31/17 17:45 08/25/17 17:44 Diphenhydramine HCl (Benadryl) 25 mg Q6H PRN ORAL Itching/Pruritis 07/31/17 11:45 08/25/17 17:44 Hydromorphone HCl (Dilaudid) 0.5 mg STAT PRN IVP For Pain 07/31/17 18:45 08/02/17 18:44 Insulin Aspart (NovoLOG) BEFORE MEALS AND HS SUBQ 07/31/17 11:30 08/25/17 20:59 Levofloxacin (Levaquin) 250 mg QOD ORAL 08/03/17 09:00 08/08/17 08:59 Levothyroxine Sodium (Synthroid) 50 mcg ACBREAKFAST ORAL 08/01/17 06:30 08/26/17 06:29 08/01/17 05:53 Metronidazole (Flagyl) 500 mg Q8HR ORAL 07/31/17 22:00 08/07/17 21:59 08/01/17 15:04 Morphine Sulfate (Morphine Sulfate) 2 mg Q4H PRN IVP severe Pain (Pain Scale 7-10) 07/31/17 09:45 08/02/17 17:44 Nifedipine (Procardia XL) 60 mg DAILY ORAL 07/31/17 09:00 08/26/17 08:59 08/01/17 09:05 Nitroglycerin (Ntg) 0.4 mg Q5M X 3 DOSES PRN SL Prn Chest Pain 07/31/17 07:00 08/25/17 17:44 Pantoprazole (Protonix) 40 mg ACBREAKFAST ORAL 07/31/17 17:30 08/30/17 17:29 08/01/17 05:53 Polyethylene Glycol (Miralax) 17 gm HSPRN PRN ORAL Constipation 07/31/17 17:45 08/25/17 17:44 Temazepam (Restoril) 15 mg HSPRN PRN ORAL Insomnia 07/31/17 17:45 08/02/17 17:44 Boone Carlin M.D. Aug 01, 2017 18:54
[2017-08-02] VITALS: BP 117/50
[2017-08-02 03:27] VITALS: BP 123/52
[2017-08-02] MEDS: metroNIDAZOLE 500mg tab ORAL SCH ×2 (06:15→13:36)
[2017-08-02] MEDS: NovoLOG Insulin Flexpen SUBQ SCH ×2 (06:30→11:30)
[2017-08-02 07:26] LABS: MEAN CORPUSCULAR HEMOGLOBIN 30.7 PG (27.0-31.0); MEAN CORPUSCULAR HGB CONC 32.7 G/DL (32.0-36.0); MEAN CORPUSCULAR VOLUME 94 FL (80-99); PLATELET COUNT 227 K/UL (150-450); RED BLOOD COUNT 3.91 M/UL (4.20-5.40); WHITE BLOOD COUNT 13.9 K/UL (4.8-10.8)
[2017-08-02 07:33] LABS: ANION GAP 12 (5-15); CALCIUM 8.8 mg/dL (8.6-10.2); CARBON DIOXIDE 22 mEQ/L (20-30); CHLORIDE 106 mEQ/L (98-107); CREATININE 2.3 mg/dL (0.5-0.9); HEMOLYSIS 1; POTASSIUM 4.3 mEQ/L (3.4-4.9); SODIUM 140 mEQ/L (135-145)
[2017-08-02 08:00] VITALS: BP 113/54
[2017-08-02] MEDS: Carvedilol 25mg Tab ORAL SCH (08:44)
[2017-08-02 08:58] LABS: BAND NEUTROPHILS % (MANUAL) 0 % (0-8); BASOPHILS % (MANUAL) 1 % (0-2); EOSINOPHILS % (MANUAL) 4 % (0-3); LYMPHOCYTES % (MANUAL) 15 % (20-45); NEUTROPHILS % (MANUAL) 72 % (45-75); PLATELET ESTIMATE ADEQUATE; PLATELET MORPHOLOGY NORMAL; TOTAL CELLS COUNTED 100
--- NOTE | 2017-08-02 10:46 | Nephrology Progress Note ---
Assessment/Plan Assessment 1. PRASANNA stable 2. Dehydration. 3.hypokalemia 4. Hypertension. 5. Diabetes. Plan PLAN d/c ivf monitoring renal function avoid NSAID oral hydration urine study showed dehydration urine na is 10 Subjective Subjective alert and wake feeling better no complaints Objective Objective Last 24 Hour Vital Signs Date Time Temp Pulse Resp B/P (MAP) Pulse Ox O2 Delivery O2 Flow Rate FiO2 08/02/17 08:44 52 113/54 08/02/17 08:44 52 113/54 08/02/17 08:00 98.2 52 15 113/54 95 Room Air 08/02/17 03:27 98.4 52 20 123/52 94 Room Air 08/02/17 00:00 98.6 54 20 117/50 92 Room Air 08/01/17 21:06 58 123/52 08/01/17 20:00 98.1 58 20 123/52 94 Room Air 08/01/17 16:00 97.9 64 15 139/64 94 Room Air 08/01/17 11:35 97.8 54 19 109/50 96 Nasal Cannula 2.0 Intake and Output 08/02/17 08/03/17 19:00 07:00 # Bowel Movements 1 Laboratory Tests 08/01/17 18:00: Urine Eosinophils None seen, Urine Random Creatinine [Pending], Urine Random Microalbumin [Pending], Urine Random Total Protein 12, Urine Random Sodium 10, Urine Creatinine 71.6, Urine Microalbumin/Creatinine Ratio [Pending] 08/02/17 04:40: White Blood Count 13.9H, Red Blood Count 3.91L, Hemoglobin 12.0, Hematocrit 36.8L, Mean Corpuscular Volume 94, Mean Corpuscular Hemoglobin 30.7, Mean Corpuscular Hemoglobin Concent 32.7, Red Cell Distribution Width 12.0, Platelet Count 227, Mean Platelet Volume 7.0, Neutrophils (%) (Auto) , Lymphocytes (%) ( Auto) , Monocytes (%) (Auto) , Eosinophils (%) (Auto) , Basophils (%) (Auto) , Differential Total Cells Counted 100, Neutrophils % (Manual) 72, Lymphocytes % ( Manual) 15L, Monocytes % (Manual) 8, Eosinophils % (Manual) 4H, Basophils % ( Manual) 1, Band Neutrophils 0, Platelet Estimate Adequate, Platelet Morphology Normal, Sodium Level 140, Potassium Level 4.3, Chloride Level 106, Carbon Dioxide Level 22, Anion Gap 12, Blood Urea Nitrogen 15, Creatinine 2.3H, Estimat Glomerular Filtration Rate , Glucose Level 93, Calcium Level 8.8 Height (Feet): 5 Height (Inches): 4.00 Weight (Pounds): 150 Objective HEENT : No JVP. No LAD. No thyromegaly. Extraocular movement intact. Pupils are reactive to light and accommodation. LUNGS: Clear to auscultation. CARDIAC: Regular rate and rhythm. S1 and S2. No murmur. No rub. ABDOMEN: Soft, nontender, and nondistended. EXTREMITIES: No edema. No clubbing. No cyanosis. Neurologic: Cranial nerves II through XII within normal limits. Upper and lower extremities are grossly intact. ANITA DOLL Aug 02, 2017 10:46
--- NOTE | 2017-08-02 11:26 | GI Progress Note ---
Assessment/Plan Problems: (1) Colitis ICD Codes: K52.9 - Noninfective gastroenteritis and colitis, unspecified SNOMED: 48045629 (2) Bright red blood per rectum ICD Codes: K62.5 - Hemorrhage of anus and rectum SNOMED: 918879366 (3) Diabetes ICD Codes: E11.9 - Type 2 diabetes mellitus without complications SNOMED: 47567891 (4) Abdominal pain ICD Codes: R10.9 - Unspecified abdominal pain SNOMED: 31912673 Qualifiers: Qualified Codes: R10.30 - Lower abdominal pain, unspecified Status: stable Status Narrative Discussed with Dr. Montano. Assessment/Plan SUMMARY FINDINGS: 1. Severe colitis, most likely ischemic, status post biopsy. 2. Diverticulosis 3. Internal hemorrhoids RECOMMENDATIONS: ok for DC per GI standpoint Followup biopsy results and treat accordingly >> bx mucosal necrosis, see full pathology report. Follow with a surgical recommendation. adv to cardiac diet, tolerating pt will need a full colonoscopy given poor prep >> will contact as outpatient PT eval fu labs The patient was seen and examined at bedside and all new and available data was reviewed in the patients chart. I agree with the above findings, impression and plan. (Patient seen earlier today. Signature stamp does not reflect patient encounter time.). -Ferdinand Montano MD Subjective Subjective tolerating cardiac diet Objective Last 24 Hour Vital Signs Date Time Temp Pulse Resp B/P (MAP) Pulse Ox O2 Delivery O2 Flow Rate FiO2 08/02/17 08:44 52 113/54 08/02/17 08:44 52 113/54 08/02/17 08:00 98.2 52 15 113/54 95 Room Air 08/02/17 03:27 98.4 52 20 123/52 94 Room Air 08/02/17 00:00 98.6 54 20 117/50 92 Room Air 08/01/17 21:06 58 123/52 08/01/17 20:00 98.1 58 20 123/52 94 Room Air 08/01/17 16:00 97.9 64 15 139/64 94 Room Air 08/01/17 11:35 97.8 54 19 109/50 96 Nasal Cannula 2.0 Intake and Output 08/02/17 08/03/17 19:00 07:00 # Bowel Movements 1 Laboratory Tests Test 08/01/17 18:00 08/02/17 04:40 Urine Eosinophils None seen Urine Random Creatinine Pending Urine Random Microalbumin Pending Urine Random Total Protein 12 mg/dL Urine Random Sodium 10 mmol/L Urine Creatinine 71.6 mg/dL Urine Microalbumin/Creatinine Ratio Pending White Blood Count 13.9 K/UL (4.8-10.8) H Red Blood Count 3.91 M/UL (4.20-5.40) L Hemoglobin 12.0 G/DL (12.0-16.0) Hematocrit 36.8 % (37.0-47.0) L Mean Corpuscular Volume 94 FL (80-99) Mean Corpuscular Hemoglobin 30.7 PG (27.0-31.0) Mean Corpuscular Hemoglobin Concent 32.7 G/DL (32.0-36.0) Red Cell Distribution Width 12.0 % (11.6-14.8) Platelet Count 227 K/UL (150-450) Mean Platelet Volume 7.0 FL (6.5-10.1) Neutrophils (%) (Auto) % (45.0-75.0) Lymphocytes (%) (Auto) % (20.0-45.0) Monocytes (%) (Auto) % (1.0-10.0) Eosinophils (%) (Auto) % (0.0-3.0) Basophils (%) (Auto) % (0.0-2.0) Differential Total Cells Counted 100 Neutrophils % (Manual) 72 % (45-75) Lymphocytes % (Manual) 15 % (20-45) L Monocytes % (Manual) 8 % (1-10) Eosinophils % (Manual) 4 % (0-3) H Basophils % (Manual) 1 % (0-2) Band Neutrophils 0 % (0-8) Platelet Estimate Adequate Platelet Morphology Normal Sodium Level 140 mEQ/L (135-145) Potassium Level 4.3 mEQ/L (3.4-4.9) Chloride Level 106 mEQ/L (98-107) Carbon Dioxide Level 22 mEQ/L (20-30) Anion Gap 12 (5-15) Blood Urea Nitrogen 15 mg/dL (7-23) Creatinine 2.3 mg/dL (0.5-0.9) H Estimat Glomerular Filtration Rate mL/min (>60) Glucose Level 93 mg/dL (74-106) Calcium Level 8.8 mg/dL (8.6-10.2) Height (Feet): 5 Height (Inches): 4.00 Weight (Pounds): 150 General Appearance: no apparent distress, alert, overweight Cardiovascular: normal rate Respiratory/Chest: normal breath sounds, no respiratory distress Abdominal Exam: normal bowel sounds, non tender, soft Extremities: normal range of motion Lidya Newell N.P. Aug 02, 2017 11:26 FERDINAND MONTANO Aug 08, 2017 14:41
[2017-08-02 12:00] VITALS: BP 135/67
[2017-08-02 12:20] LABS: CREATININE RANDOM URINE 67.4 mg/dL (Not Estab.)
--- NOTE | 2017-08-02 15:06 | General Progress Note ---
Assessment/Plan Problem List: (1) Sepsis ICD Codes: A41.9 - Sepsis, unspecified organism SNOMED: 21982798 (2) Colitis ICD Codes: K52.9 - Noninfective gastroenteritis and colitis, unspecified SNOMED: 18224891 (3) Bright red blood per rectum ICD Codes: K62.5 - Hemorrhage of anus and rectum SNOMED: 528212669 (4) Abdominal pain ICD Codes: R10.9 - Unspecified abdominal pain SNOMED: 96881752 Qualifiers: Qualified Codes: R10.30 - Lower abdominal pain, unspecified (5) Diabetes ICD Codes: E11.9 - Type 2 diabetes mellitus without complications SNOMED: 87811335 (6) Hypothyroidism ICD Codes: E03.9 - Hypothyroidism, unspecified SNOMED: 70695806 (7) Hypertension ICD Codes: I10 - Essential (primary) hypertension SNOMED: 60595155 Status: stable, progressing, tolerating diet Assessment/Plan ot pt diet abx sx f/u cbc bmp am,dc plan w hh Subjective Constitutional: Reports: weakness Allergies: Coded Allergies: Horse Serum Proteins (Verified Allergy, Unknown, SWELLING, 04/23/08) All Systems: reviewed and negative except above Subjective calm in bed sl weak Objective Last 24 Hour Vital Signs Date Time Temp Pulse Resp B/P (MAP) Pulse Ox O2 Delivery O2 Flow Rate FiO2 08/02/17 08:44 52 113/54 08/02/17 08:44 52 113/54 08/02/17 08:00 98.2 52 15 113/54 95 Room Air 08/02/17 03:27 98.4 52 20 123/52 94 Room Air 08/02/17 00:00 98.6 54 20 117/50 92 Room Air 08/01/17 21:06 58 123/52 08/01/17 20:00 98.1 58 20 123/52 94 Room Air 08/01/17 16:00 97.9 64 15 139/64 94 Room Air Intake and Output 08/02/17 08/03/17 19:00 07:00 # Bowel Movements 1 Laboratory Tests 08/01/17 18:00: Urine Eosinophils None seen, Urine Random Creatinine 67.4, Urine Random Microalbumin 12.8, Urine Random Total Protein 12, Urine Random Sodium 10, Urine Creatinine 71.6, Urine Microalbumin/Creatinine Ratio 19.0 08/02/17 04:40: White Blood Count 13.9H, Red Blood Count 3.91L, Hemoglobin 12.0, Hematocrit 36.8L, Mean Corpuscular Volume 94, Mean Corpuscular Hemoglobin 30.7, Mean Corpuscular Hemoglobin Concent 32.7, Red Cell Distribution Width 12.0, Platelet Count 227, Mean Platelet Volume 7.0, Neutrophils (%) (Auto) , Lymphocytes (%) ( Auto) , Monocytes (%) (Auto) , Eosinophils (%) (Auto) , Basophils (%) (Auto) , Differential Total Cells Counted 100, Neutrophils % (Manual) 72, Lymphocytes % ( Manual) 15L, Monocytes % (Manual) 8, Eosinophils % (Manual) 4H, Basophils % ( Manual) 1, Band Neutrophils 0, Platelet Estimate Adequate, Platelet Morphology Normal, Sodium Level 140, Potassium Level 4.3, Chloride Level 106, Carbon Dioxide Level 22, Anion Gap 12, Blood Urea Nitrogen 15, Creatinine 2.3H, Estimat Glomerular Filtration Rate , Glucose Level 93, Calcium Level 8.8 Height (Feet): 5 Height (Inches): 4.00 Weight (Pounds): 150 General Appearance: lethargic EENT: normal ENT inspection Neck: normal alignment Cardiovascular: normal peripheral pulses, normal rate, regular rhythm Respiratory/Chest: chest wall non-tender, lungs clear, normal breath sounds Abdomen: normal bowel sounds, non tender, soft Extremities: normal inspection Edema: no edema noted Arm (L), no edema noted Arm (R), no edema noted Leg (L), no edema noted Leg (R), no edema noted Pedal (L), no edema noted Pedal (R), no edema noted Generalized Neurologic: responsive, motor weakness Skin: normal pigmentation, warm/dry INDIRA SALGUERO Aug 02, 2017 15:06
--- NOTE | 2017-08-02 15:08 | Pulmonology Progress Note ---
Assessment/Plan Problems: (1) Diabetes (2) Abdominal pain (3) Bright red blood per rectum (4) Colitis (5) Sepsis Assessment/Plan improving, no new complains wbc is lower, symptomatic treatment all notes reviewed dc planning Subjective ROS Limited/Unobtainable: No Constitutional: Reports: no symptoms HEENT: Repors: no symptoms Allergies: Coded Allergies: Horse Serum Proteins (Verified Allergy, Unknown, SWELLING, 04/23/08) Objective Last 24 Hour Vital Signs Date Time Temp Pulse Resp B/P (MAP) Pulse Ox O2 Delivery O2 Flow Rate FiO2 08/02/17 08:44 52 113/54 08/02/17 08:44 52 113/54 08/02/17 08:00 98.2 52 15 113/54 95 Room Air 08/02/17 03:27 98.4 52 20 123/52 94 Room Air 08/02/17 00:00 98.6 54 20 117/50 92 Room Air 08/01/17 21:06 58 123/52 08/01/17 20:00 98.1 58 20 123/52 94 Room Air 08/01/17 16:00 97.9 64 15 139/64 94 Room Air Intake and Output 08/02/17 08/03/17 19:00 07:00 # Bowel Movements 1 General Appearance: WD/WN HEENT: normocephalic, atraumatic Respiratory/Chest: chest wall non-tender, lungs clear Breasts: no masses Cardiovascular: normal peripheral pulses, normal rate, no JVD Abdomen: soft, non tender, no organomegaly Genitourinary: normal external genitalia Extremities: no clubbing Skin: no lesions Laboratory Tests 08/01/17 18:00: Urine Eosinophils None seen, Urine Random Creatinine 67.4, Urine Random Microalbumin 12.8, Urine Random Total Protein 12, Urine Random Sodium 10, Urine Creatinine 71.6, Urine Microalbumin/Creatinine Ratio 19.0 08/02/17 04:40: White Blood Count 13.9H, Red Blood Count 3.91L, Hemoglobin 12.0, Hematocrit 36.8L, Mean Corpuscular Volume 94, Mean Corpuscular Hemoglobin 30.7, Mean Corpuscular Hemoglobin Concent 32.7, Red Cell Distribution Width 12.0, Platelet Count 227, Mean Platelet Volume 7.0, Neutrophils (%) (Auto) , Lymphocytes (%) ( Auto) , Monocytes (%) (Auto) , Eosinophils (%) (Auto) , Basophils (%) (Auto) , Differential Total Cells Counted 100, Neutrophils % (Manual) 72, Lymphocytes % ( Manual) 15L, Monocytes % (Manual) 8, Eosinophils % (Manual) 4H, Basophils % ( Manual) 1, Band Neutrophils 0, Platelet Estimate Adequate, Platelet Morphology Normal, Sodium Level 140, Potassium Level 4.3, Chloride Level 106, Carbon Dioxide Level 22, Anion Gap 12, Blood Urea Nitrogen 15, Creatinine 2.3H, Estimat Glomerular Filtration Rate , Glucose Level 93, Calcium Level 8.8 Current Medications Medications (Trade) Dose Ordered Sig/Akbar Route PRN Reason Start Time Stop Time Status Last Admin Dose Admin Acetaminophen (Tylenol) 650 mg Q4H PRN ORAL fever 07/31/17 09:45 08/25/17 17:44 08/01/17 04:07 Al Hydroxide/Mg Hydroxide (Mylanta II) 30 ml Q6H PRN ORAL dyspepsia 07/31/17 11:45 08/25/17 17:44 Atorvastatin Calcium (Lipitor) 20 mg BEDTIME ORAL 07/31/17 21:00 08/25/17 20:59 08/01/17 21:06 Carvedilol (Coreg) 25 mg EVERY 12 HOURS ORAL 07/31/17 09:00 08/25/17 20:59 08/01/17 21:06 Clonidine HCl (Catapres) 0.1 mg Q4H PRN ORAL For High Blood Pressure 07/31/17 09:45 08/25/17 17:44 Dextrose (Dextrose 50%) STAT PRN IV Hypoglycemia 07/31/17 17:45 08/25/17 17:44 Diphenhydramine HCl (Benadryl) 25 mg Q6H PRN ORAL Itching/Pruritis 07/31/17 11:45 08/25/17 17:44 Hydromorphone HCl (Dilaudid) 0.5 mg STAT PRN IVP For Pain 07/31/17 18:45 08/02/17 18:44 Insulin Aspart (NovoLOG) BEFORE MEALS AND HS SUBQ 07/31/17 11:30 08/25/17 20:59 Levofloxacin (Levaquin) 250 mg QOD ORAL 08/03/17 09:00 08/08/17 08:59 Levothyroxine Sodium (Synthroid) 50 mcg ACBREAKFAST ORAL 08/01/17 06:30 08/26/17 06:29 08/02/17 06:15 Metronidazole (Flagyl) 500 mg Q8HR ORAL 07/31/17 22:00 08/07/17 21:59 08/02/17 13:36 Morphine Sulfate (Morphine Sulfate) 2 mg Q4H PRN IVP severe Pain (Pain Scale 7-10) 07/31/17 09:45 08/02/17 17:44 Nifedipine (Procardia XL) 60 mg DAILY ORAL 07/31/17 09:00 08/26/17 08:59 08/01/17 09:05 Nitroglycerin (Ntg) 0.4 mg Q5M X 3 DOSES PRN SL Prn Chest Pain 07/31/17 07:00 08/25/17 17:44 Pantoprazole (Protonix) 40 mg ACBREAKFAST ORAL 07/31/17 17:30 08/30/17 17:29 08/02/17 06:15 Polyethylene Glycol (Miralax) 17 gm HSPRN PRN ORAL Constipation 07/31/17 17:45 08/25/17 17:44 Temazepam (Restoril) 15 mg HSPRN PRN ORAL Insomnia 07/31/17 17:45 08/02/17 17:44 TONNY BERMUDEZ Aug 02, 2017 15:08
--- NOTE | 2017-08-02 15:57 | Cardiology Report ---
APPROVED REPORT EKG Measurement Heart [id number] Sinus bradycardia Nonspecific T wave abnormality Abnormal ECG
--- NOTE | 2017-08-05 11:23 | Discharge Summary ---
Discharge Summary Hospital Course Date of Admission Jul 26, 2017 at 17:09 Date of Discharge Aug 02, 2017 at 15:58 Admitting Diagnosis G.I.BLEED HPI Hetal Barclay is a 82 year old female who was admitted on Jul 26, 2017 at 17:09 for Gastro Intestinal Bleed Hospital Course dc summary #[id number] Discharge Condition Upon Discharge: stable Discharge Disposition Patient was discharged to Home with Home Health(06) Discharge Diagnoses: Roque (Keyalverto)Saray NP Aug 05, 2017 11:23
--- NOTE | 2017-08-06 02:00 | Discharge Summary 2 SIG ---
DATE OF ADMISSION: 07/26/2017 DATE OF DISCHARGE: 08/02/2017 Reason For Admission: 82-year-old female with a history of diabetes, hypertension, and hypothyroidism, presented to emergency department with a complaint of bright red blood per rectum. The patient reported constipation for the last 4 days and then diarrhea in the morning of 07/26/2017 followed by bright red blood per rectum in the afternoon of 07/26/2017. The patient reported lower abdominal pain and nausea. No vomiting. She denied urinary complaints. She denied hemorrhoids. The patient was not on any anticoagulation therapy, nor on aspirin. The patient just completed antibiotic regimen for treatment for UTI. No prior history of colitis or diverticulitis. The patient denied coffee-grounds emesis or black stools. No heavy nonsteroid anti- inflammatory drug use. Workup in the emergency department revealed stable vital signs. No fever. CT of the abdomen and pelvis revealed wall thickening of the distal transverse and descending colon consistent with nonspecific colitis. Leukocytosis with WBC -21.7. Hemoglobin and hematocrit were stable. Anion gap- 19. Glucose -146. LFT, lipase, electrolytes, and renal parameters - all were stable. EKG revealed normal sinus rhythm. Urinalysis was negative for evidence of UTI. The patient was started on empiric antibiotic and was admitted to telemetry floor for further management. ADMITTING DIAGNOSES: 1. Possible sepsis. 2. Rectal bleeding. 3. Colitis. 4. Abdominal pain. 5. Hypertension. 6. Diabetes. 7. Hypothyroidism. 8. Coronary artery disease with history of coronary artery bypass graft. Hospital Course: The patient was admitted to telemetry floor. The patient was kept NPO. The patient was started on the IV fluids. GI and ID consults were requested. The patient was started on empiric antibiotics. Pain management was provided. Antiemetic provided as needed. The patient was started on PPI. GI seen and evaluated the patient, scheduled the patient for colonoscopy with bowel preparation. Subsequently, colonoscopy done on 07/29/2017 with a colon biopsy, which revealed severe colitis, likely ischemic colitis, diverticulosis, and internal hemorrhoids. Pathology of the colonic tissue revealed mucosal necrosis and hyalinization of the lamina propria. Biopsy was negative for dysplasia or malignancy. The findings were consistent with ischemic colitis. The patient was as mentioned above on empiric antibiotics. Blood culture were negative. Leukocytosis slowly trending down, prior to discharge -13.9 from initial of 21. Hemoglobin and hematocrit were closely monitored. They were stable. No need for transfusion. Blood pressure was managed with beta-julio and calcium channel julio and was stable. Blood sugar was managed with sliding scale of insulin. Hemoglobin A1c was at goal. Venous duplex of bilateral lower extremities was negative. TSH was within normal limits. Current dose of levothyroxine was continued. Surgery followed the patient in case conservative treatment would not be sufficient. No need for surgical intervention. The patient was improving. Surgery cleared the patient for discharge along with GI specialist. Patient s/p treatment with antibiotics as per ID, monitor closely off antibiotic. Keyliner was called due to concern for persistent hypokalemia. Patient also developed evidence of acute renal failure with creatinine up to 2.3. Per lead operator, the patient with evidence of dehydration. Persistent hypokalemia was likely secondary to GI losses and possibly renal. Urine sodium was 10, which was indicative of dehydration. The patient was well hydrated. Patient was recommended to avoid nephrotoxics, especially nonsteroid anti-inflammatory drugs. Recommended increase intake of oral fluids at home. Renal ultrasound revealed no evidence of hydronephrosis and demonstrated normal echogenicity of bilateral kidneys. The patient was stable for discharge home with home health services. FINAL DIAGNOSES: 1. Possible sepsis. 2. Rectal bleeding. 3. Severe left colitis to transverse colon. 4. Ischemic colitis, resolving. 5. Abdominal pain secondary to ischemic colitis. 6. Hypertension. 7. Diabetes. 8. Hypothyroidism. 9. Coronary artery disease with history of coronary artery bypass graft. 10. Acute renal failure likely due to dehydration. 11. Dehydration. 12. Persistent hypokalemia. 13. Status post colonoscopy on 07/29/2017 with biopsy. Discharge Medications: List of discharge medications was given to the patient by discharge nurse. Discharge Instructions: The patient was discharged home with home health services. Closely monitor for any signs of bleeding. Monitor renal parameters closely. Vernon Decker D.O. [facility] N.PTony DR: MONISHA JOB#: [id number] CC: ANA
== END 2017-08-02 15:58 | disposition home health service (06) | DRG 872 ==
LOC: EDBD 16:20 → EMR 16:53 → 2E 17:09 → EDBEDREQ 17:21 → 2E 18:59 → 4E 07-31 06:53
PROC: 0DBE8ZX Excision of Large Intestine, Via Natural or Artificial Opening Endoscopic, Diagnostic (ICD-10-PCS; principal; 2017-07-29 12:42)
DX: A41.9 Sepsis, unspecified organism (principal); N17.9 Acute kidney failure, unspecified; K55.9 Vascular disorder of intestine, unspecified; K62.5 Hemorrhage of anus and rectum; I10 Essential (primary) hypertension; K57.90 Diverticulosis of intestine, part unspecified, without perforation or abscess without bleeding; E86.0 Dehydration; E87.6 Hypokalemia; E03.9 Hypothyroidism, unspecified; I25.10 Atherosclerotic heart disease of native coronary artery without angina pectoris; Z95.1 Presence of aortocoronary bypass graft; Z88.8 Allergy status to other drugs, medicaments and biological substances; E11.9 Type 2 diabetes mellitus without complications; E78.00 Pure hypercholesterolemia, unspecified; R10.9 Unspecified abdominal pain; K64.8 Other hemorrhoids
CPT/HCPCS: 36415; 71010; 74177; 76775; 80048; 80053; 80202; 81003; 82043; 82044; 82150; 82570; 82962; 83036; 83605; 83690; 83735; 84100; 84300; 84443; 84484; 85007; 85025; 85610; 85730; 86850; 86870; 86900; 86901; 87040; 89050; 93005; 93970; 94003; 94150; 99285; J1815; J2405

== ENCOUNTER 2017-08-26 13:10 | Outpatient (CLI) | payer MEDICARE, MEDICAID ==
[~2017-08-26 13:10] MED LIST: ASPIR 8181 MG ORAL; ATORVASTATIN CA20 MG ORAL; CARVEDILOL25 MG ORAL; LEVOTHYROXINE50 MCG ORAL; METFORMIN HCL500 M1 ORAL; NIFEDIPINE ER60 M3 ORAL
[2017-08-26 13:25] VITALS: BP 119/46
[2017-08-26] MEDS ORDERED: GLIPIZIDE ER2.5 MG PO (13:25)
[2017-08-26] MEDS ORDERED: FUROSEMIDE40 MG ORAL (13:25)
--- NOTE | 2017-08-26 14:09 | GI Progress Note ---
Assessment/Plan Problems: (1) Ischemic colitis ICD Codes: K55.9 - Vascular disorder of intestine, unspecified SNOMED: [id number] Status: stable, unchanged Status Narrative Seen with Dr. Montano. Assessment/Plan colonoscopy SUMMARY FINDINGS reviewed with patient: 1. Severe colitis, most likely ischemic, status post biopsy. 2. Diverticulosis. 3. Internal hemorrhoids. RECOMMENDATIONS: followup biopsy results and treat accordingly >> mucosal necrosis RTC/repeat colonoscopy x 2 months The patient was seen and examined at bedside and all new and available data was reviewed in the patients chart. I agree with the above findings, impression and plan. (Patient seen earlier today. Signature stamp does not reflect patient encounter time.). -Ferdinand Montano MD Subjective Gastrointestinal/Abdominal: Reports: no symptoms Objective Last 24 Hour Vital Signs Date Time Temp Pulse Resp B/P (MAP) Pulse Ox O2 Delivery O2 Flow Rate FiO2 08/26/17 13:25 97.8 60 16 119/46 98 General Appearance: WD/WN, no apparent distress, alert Cardiovascular: normal rate Respiratory/Chest: normal breath sounds, no respiratory distress Abdominal Exam: normal bowel sounds, non tender, soft Extremities: normal range of motion, non-tender Lidya Newell N.P. Aug 26, 2017 14:09 FERDINAND MONTANO Aug 27, 2017 15:16
== END 2017-08-26 14:00 | disposition home or self-care (01) ==
LOC: PAN 13:10
DX: K55.9 Vascular disorder of intestine, unspecified (principal); K57.90 Diverticulosis of intestine, part unspecified, without perforation or abscess without bleeding; K64.8 Other hemorrhoids
CPT/HCPCS: 99211